=== PATIENT | male | born 1940 | race Caucasian/White ===

== ENCOUNTER 2021-01-27 10:49 | Inpatient (IN) | payer OTHER ==
--- OUTSIDE RECORDS SUMMARY | 2021-01-27 10:52 | XMS REPORT | Continuity of Care Document ---
:1940 Author Organization [facility] Address [address] [place] [address] Dr. Mose[address] [place] [address] Care Team Providers Name Role Phone JONATHAN Attending Clinician Unavailable MABEL Attending Clinician Unavailable PIERCE Attending Clinician Unavailable JONATHAN Admitting Clinician Unavailable MABEL Admitting Clinician Unavailable EDMONDS Admitting Clinician Unavailable Problems This patient has no known problems. Allergies, Adverse Reactions, Alerts This patient has no known allergies or adverse reactions. Medications This patient has no known medications. Procedures This patient has no known procedures. Encounters Start End Encounter Admission Attending Care Care Encounter Source Date/Time Date/Time Type Type Clinicians Facility Department ID 2020-07-12 2020-07-13 [facility] [id number] [place] 00:00:00 00:00:00 GAGE [address] 2020-05-06 2020-05-06 [facility] [id number] [place] 00:00:00 00:00:00 MARY [address] 2020-04-05 2020-04-09 Inpatient PIERCE [facility] [id number] [place] 00:00:00 00:00:00 BLANCA [address] 2015-11-23 2015-11-23 [facility]patient [facility] [id number] [place] 00:00:00 00:00:00 MARY [address] Results This patient has no known results.
[2021-01-27 12:53] LABS: Absolute Lymphocytes (CBC) 0.4 K/uL (0.7-4.9); Basophils % 0.1 % (0-1.3); Hematocrit 33.4 % (39.6-49.0); MPV 7.9 fL (7.6-11.3); RBC Red Blood Cell Count 4.63 M/uL (4.33-5.43)
--- NOTE | 2021-01-27 13:02 | RAD REPORT ---
EXAM DESCRIPTION: RAD - Shoulder Right 2 View - 01/27/2021 12:54 pm CLINICAL HISTORY: Right shoulder pain FINDINGS: No fracture or dislocation is seen. Bones are osteoporotic The humeral head is high riding. Screws have been placed into the right humeral head. Mild osteoarthritis glenohumeral joint. Moderate osteoarthritis AC joint
[2021-01-27] MEDS ORDERED: LEVALBUTEROL 1.25 MG/3 ML NEB ONE (13:07)
[2021-01-27 13:13] LABS: Protime INR 1.64
[2021-01-27 13:14] LABS: SARS-COV-2 RT PCR NEGATIVE (NEGATIVE)
[2021-01-27] MEDS ORDERED: NA CHLORIDE 0.9% 500 ML ONE ×2 (13:37→21:36)
[2021-01-27 13:39] LABS: Albumin 2.9 g/dL (3.4-5.0); Bilirubin Direct 0.5 mg/dL (0-0.2); Bilirubin Total 1.1 mg/dL (0.2-1.0); Magnesium 1.9 mg/dL (1.8-2.4); Potassium 3.8 mmol/L (3.5-5.1); Protein, Total 7.6 g/dL (6.4-8.2); Troponin (Emerg Dept Use Only) 0.06 ng/mL (0.0-0.045)
[2021-01-27 14:00] LABS: Blood Morphology Comment NOT SEEN (NOT SEEN); Platelet Estimate ADEQ
--- NOTE | 2021-01-27 14:05 | RAD REPORT ---
EXAM DESCRIPTION: Tato Single View01/27/2021 12:54 pm CLINICAL HISTORY: Fever COMPARISON: None FINDINGS: Upper lobe vessels are prominent. The lungs appear clear of acute infiltrate. The heart is mildly to moderately enlarged. Pacemaker le ads are in place. IMPRESSION: Prominence of the upper lobe vessels indicative of pulmonary venous hypertension
[2021-01-27] MEDS ORDERED: ACETAMINOPHEN 325 MG TABLET ONE (15:35)
--- NOTE | 2021-01-27 15:54 | RAD REPORT ---
EXAM DESCRIPTION: CT - Chest Abdomen Pelvis W Cont - 01/27/2021 3:31 pm CLINICAL HISTORY: Shortness of breath/abdominal pain/sepsis COMPARISON: None TECHNIQUE: Computed axial tomography of the chest, abdomen and pelvis was obtained. Oral contrast wa s given. IV contrast was not requested. All CT scans are performed using dose optimization technique as appropriate and may include automated exposure control or mA/KV adjustment according to patient size. FINDINGS: The evaluation of mediastinum, chilo, vessels and solid organs is limited secondary to the lack of IV contrast administration Mild chronic appearing lung interstitial opacities. No mediastinal or hilar lymphadenopathy is seen. A pleural effusion is not present. A pericardial effusion is not seen. The heart is mildly to moderately enlarged. The liver, spleen, pancreas, adrenals and kidneys appear grossly normal There is no evidence of diverticulitis. Lower abdominal aortic aneurysm AP diameter 3 centimeters. Right common iliac artery aneurysm 2.8 delia timeters. 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 Moderate left and small to moderate right inguinal hernias fat IMPRESSION: Lower abdominal aortic aneurysm AP diameter 3 centimeters. Right common iliac artery aneurysm 2.8 centimeters. 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 Moderate left and small to moderate right inguinal hernias
[2021-01-27] MEDS ORDERED: CEFTRIAXONE/SWI 1gm 1 GM/10 ML SYR ONE (16:03)
--- NOTE | 2021-01-27 16:27 | RAD REPORT ---
EXAM DESCRIPTION: US - Abdomen Exam Limited - 01/27/2021 2:59 pm CLINICAL HISTORY: Abdominal pain. COMPARISON: None. FINDINGS: The gallbladder wall is not thickened. A gallstone is not seen. The biliary tree is normal caliber. IMPRESSION: Unremarkable gallbladder ultrasound.
--- NOTE | 2021-01-27 16:48 | ER ---
Nurse's Notes [facility] Name: Danny Rouse Age: 80 yrs Sex: Male : 1940 Arrival Date: 01/27/2021 Time: 10:51 Bed 23 Private MD: Diagnosis: Sepsis of Unknown Origin;Acute on chronic combined systolic (congestive) and diastolic (congestive) heart failure Presentation: 01/27 11:07 Chief complaint: Patient states: fever, decreased appetite, slight cough, and aa5 generalized weakness that began 2 days ago. Pt's daughter also reports pt started c/o pain to right shoulder after using hammer. Coronavirus screen: Client presents with at least one sign or symptom that may indicate coronavirus-19. Standard/surgical mask placed on the client. Provider contacted for isolation considerations. Ebola Screen: No symptoms or risks identified at this time. Initial Sepsis Screen: Does the patient meet any 2 criteria? HR > 90 bpm. Does the patient have a suspected source of infection? Yes:. Risk Assessment: Do you want to hurt yourself or someone else? Patient reports no desire to harm self or others. Onset of symptoms was January 2021. 11:07 Method Of Arrival: Wheelchair aa5 11:07 Acuity: AUBREY 2 aa5 Historical: - Allergies: 11:10 No Known Allergies; aa5 - PMHx: 11:10 Hypertension; cardiomyopathy; Thyroid problem; aa5 - PSHx: 11:10 Logan shoulders; Pacemaker/defibrillator; aa5 - Immunization history:: Immunization history: Flu vaccine is up to date. - Social history:: Smoking status: Patient denies any tobacco usage or history of. Screenin:14 Abuse screen: Denies threats or abuse. Nutritional screening: No deficits noted. vg1 Tuberculosis screening: No symptoms or risk factors identified. Fall Risk No fall in past 12 months (0 pts). No secondary diagnosis (0 pts). No IV (0 pts). Ambulatory Aid- None/Bed Rest/Nurse Assist (0 pts). Gait- Weak (10 pts.). Mental Status- Oriented to own ability (0 pts). Total Urbina Fall Scale indicates No Risk (0-24 pts). Assessment: 12:12 General: Appears in no apparent distress. comfortable, Behavior is calm, cooperative. vg1 Pain: Complains of pain in right shoulder Pain currently is 10 out of 10 on a pain scale. Pain began 2-3 days ago. Neuro: Level of Consciousness is awake, alert, obeys commands, Oriented to person, place, time, situation. Cardiovascular: Patient's skin is warm and dry. Defibrillator on left side of chest. Respiratory: Reports shortness of breath on exertion cough that is Airway is patent Respiratory effort is even, labored, Respiratory pattern is regular, symmetrical, Breath sounds with wheezes in right posterior middle lobe. GI: Abdomen is flat, Reports nausea, Patient currently denies diarrhea, vomiting, Parent/caregiver reports the patient having Last BM was about 4 days ago. : No signs and/or symptoms were reported regarding the genitourinary system. EENT: No signs and/or symptoms were reported regarding the EENT system. Derm: Skin is pink, warm \T\ dry. Musculoskeletal: Circulation, motion, and sensation intact. 14:18 Reassessment: Patient appears in no apparent distress at this time. No changes from vg1 previously documented assessment. Patient and/or family updated on plan of care and expected duration. Pain level reassessed. Patient is alert, oriented x 3, equal unlabored respirations, skin warm/dry/pink. 15:22 Reassessment: Patient appears in no apparent distress at this time. No changes from vg1 previously documented assessment. Patient and/or family updated on plan of care and expected duration. Pain level reassessed. Patient is alert, oriented x 3, equal unlabored respirations, skin warm/dry/pink. 18:37 Reassessment: Patient appears in no apparent distress at this time. Patient and/or vg1 family updated on plan of care and expected duration. Pain level reassessed. Patient is alert, oriented x 3, equal unlabored respirations, skin warm/dry/pink. 18:46 Reassessment: attempted to call report. vg1 Vital Signs: 11:07 BP 96 / 59; Pulse 97; Resp 20 S; Temp 99.0(O); Pulse Ox 96% on R/A; Weight 107.95 kg aa5 (R); Height 6 ft. 0 in. (182.88 cm) (R); 12:14 BP 126 / 62; Pulse 96; Resp 22; Temp 99.0; Pulse Ox 96% on 2 lpm NC; vg1 12:30 BP 122 / 54; Pulse 99; Resp 28; Pulse Ox 96% on 2 lpm NC; vg1 13:00 BP 123 / 49; Pulse 101; Resp 28; Pulse Ox 99% on 2 lpm NC; vg1 13:30 BP 110 / 58; Pulse 100; Resp 28; Pulse Ox 100% on 2 lpm NC; vg1 13:30 BP 102 / 61; Pulse 102; Resp 28; Temp 100.4; Pulse Ox 96% on 2 lpm NC; vg1 14:00 BP 102 / 61; Pulse 102; Resp 28; Pulse Ox 96% on 2 lpm NC; vg1 14:42 BP 92 / 56; Pulse 100; Resp 26; Pulse Ox 95% on 2 lpm NC; vg1 15:00 BP 101 / 49; Pulse 95; Resp 26; Pulse Ox 95% on 2 lpm NC; vg1 17:12 BP 93 / 51; Pulse 90; Resp 24; Temp 98.7(O); Pulse Ox 95% on 2 lpm NC; vg1 18:04 BP 112 / 54; Pulse 86; Resp 20; Pulse Ox 96% on 2 lpm NC; vg1 18:37 Temp 98.4(O); vg1 11:07 Body Mass Index 32.28 (107.95 kg, 182.88 cm) aa5 ED Course: 10:51 Patient arrived in ED. mr 11:07 Arm band placed on. aa5 11:08 Triage completed. aa5 12:08 Anjel Cowart PA is PHCP. [facility] 12:08 Chemo Fonseca MD is Attending Physician. [facility] 12:12 Maria De Jesus Hobbs, DONNIE is Primary Nurse. vg1 12:14 Patient has correct armband on for positive identification. Bed in low position. Call 1 light in reach. Side rails up X2. 12:30 Oxygen administration via nasal cannula \T\ 2L/min. jp3 12:34 COVID swab sent to lab. Flu and/or RSV swab sent to lab. jp3 12:47 Initial lab(s) drawn, by ks, sent to lab. Inserted saline lock: 20 gauge in right vg1 antecubital area, using aseptic technique. Blood collected. 12:54 XRAY Chest (1 view) In Process Unspecified. EDMS 12:54 Shoulder Right (2 View) XRAY In Process Unspecified. EDMS 14:23 First set of blood cultures drawn by me, COVID swab sent to lab. jp3 14:30 Second set of blood cultures drawn by me. jp3 14:32 Lactate Sent. jp3 14:32 Blood Culture Adult (2) Sent. jp3 14:58 US at bedside. vg1 14:59 US Abdomen Limited In Process Unspecified. EDMS 15:[address] via stretcher. vg1 15:31 CT Chest, Abdomen, Pelvis - W/Contrast In Process Unspecified. EDMS 16:09 Urine collected: straight cath specimen, clear, tyrone colored, Amount Returned: 400mL. jp3 Straight cath inserted, using sterile technique, 16 Fr. Specimen obtained. Returned clear yellow urine. Patient tolerated well. 16:47 Nolberto Chaidez is Hospitalizing Provider. m 18:16 Repeat lab(s) drawn. by ks, sent to lab. jp3 19:14 Primary Nurse role handed off by Maria De Jesus Hobbs, RN mw2 19:34 Maria De Jesus Hobbs, RN is Primary Nurse. vg1 19:39 No provider procedures requiring assistance completed. Patient admitted, IV remains in vg1 place. Administered Medications: 12:53 Drug: Xopenex (3) 1.25 mg Route: Inhalation; vg1 14:15 Follow up: Response: No adverse reaction vg1 13:24 Drug: NS 0.9% 500 ml Route: IV; Rate: bolus; Site: right antecubital; vg1 14:14 Follow up: IV Status: Completed infusion vg1 15:19 Drug: Tylenol 650 mg Route: PO; vg1 16:30 Follow up: Response: No adverse reaction; Temperature is decreased vg1 16:16 Drug: Rocephin (cefTRIAXone) 1 grams Route: IV; Rate: calculated rate; Site: right vg1 antecubital; 16:45 Follow up: Response: No adverse reaction; IV Status: Completed infusion vg1 17:11 Drug: Cefepime 1 grams Route: IVPB; Rate: 200 ml/hr; Infused Over: 30 mins; Site: right vg1 antecubital; 17:12 Follow up: IV Status: Completed infusion vg1 17:12 Drug: vancoMYCIN 1 grams Route: IVPB; Infused Over: 2 hrs; Site: right antecubital; vg1 18:59 Follow up: Response: No adverse reaction; IV Status: Completed infusion vg1 Outcome: 16:48 Decision to Hospitalize by Provider. fracisco 19:39 Admitted to Tele accompanied by tech, via stretcher, room 222, with oxygen, with chart, vg1 Report called to DONNIE Quan 19:39 Condition: stable 19:39 Instructed on the need for admit. 20:05 Patient left the ED. vg1 Signatures: Dispatcher [employer] EDMS Anjel Cowart PA PA fracisco Geo, Alexus Wang, Kia, RN RN aa5 Didi Copeland mw2 Joe Trejo jp3 Maria De Jesus Hobbs, RN RN vg1 Corrections: (The following items were deleted from the chart) 11:11 11:07 Acuity: AUBREY 3 aa5 aa5 12:31 12:12 Cardiovascular: Patient's skin is warm and dry. vg1 vg1 12:31 12:12 Respiratory: Airway is patent Respiratory effort is even, labored, Respiratory vg1 pattern is regular, symmetrical, vg1 12:48 12:12 Respiratory: Reports shortness of breath on exertion cough that is Airway is vg1 patent Respiratory effort is even, labored, Respiratory pattern is regular, symmetrical, vg1 18:37 17:12 BP 93 / 51; Pulse 90bpm; Resp 24bpm; Pulse Ox 95% 2 lpm Nasal Cannula; Temp vg1 98.7F; vg1
--- NOTE | 2021-01-27 16:48 | EDPHYS ---
Physician Documentation [facility] Name: Danny Rouse Age: 80 yrs Sex: Male : 1940 Arrival Date: 01/27/2021 Time: 10:51 Bed 23 Private MD: ED Physician Chemo Fonseca HPI: 01/27 12:19 This 80 yrs old Male presents to ER via Wheelchair with complaints of Fever, jmm Decreased Appetite, Shoulder Pain, Nausea, Weakness. 12:19 Onset: The symptoms/episode began/occurred 2 day(s) ago. jmm 12:31 Modifying factors: there are no obvious modifying factors. Associated signs and jmm symptoms: Pertinent positives: shortness of breath, Pertinent negatives: abdominal pain, chest pain, sore throat, vomiting. The patient has not experienced similar symptoms in the past. 12:37 Patient also complains of ongoing right shoulder pain after using a jackhammer. jmm Historical: - Allergies: 11:10 No Known Allergies; aa5 - PMHx: 11:10 Hypertension; cardiomyopathy; Thyroid problem; aa5 - PSHx: 11:10 Logan shoulders; Pacemaker/defibrillator; aa5 - Immunization history:: Immunization history: Flu vaccine is up to date. - Social history:: Smoking status: Patient denies any tobacco usage or history of. ROS: 12:31 Cardiovascular: Negative for chest pain, palpitations, and edema. jmm 12:31 Constitutional: Positive for fatigue, fever. 12:31 Respiratory: Positive for shortness of breath. 12:31 MS/extremity: Positive for pain. 12:31 Neuro: Positive for weakness. 12:31 All other systems are negative. Exam: 12:31 Constitutional: This is a well developed, well nourished patient who is awake, alert, jmm and in no acute distress. Head/Face: atraumatic. Eyes: EOMI, no conjunctival erythema appreciated ENT: Moist Mucus Membranes Neck: Trachea midline, Supple Chest/axilla: Normal chest wall appearance and motion. Cardiovascular: Regular rate and rhythm. No edema appreciated Respiratory: Normal respirations, no respiratory distress appreciated Abdomen/GI: Non distended, soft Back: Normal ROM Skin: General appearance color normal MS/ Extremity: Moves all extremities, no obvious deformities appreciated, no edema noted to the lower extremities Neuro: Awake and alert, normal gait Psych: Behavior is normal, Mood is normal, Patient is cooperative and pleasant Vital Signs: 11:07 BP 96 / 59; Pulse 97; Resp 20 S; Temp 99.0(O); Pulse Ox 96% on R/A; Weight 107.95 kg aa5 (R); Height 6 ft. 0 in. (182.88 cm) (R); 12:14 BP 126 / 62; Pulse 96; Resp 22; Temp 99.0; Pulse Ox 96% on 2 lpm NC; vg1 12:30 BP 122 / 54; Pulse 99; Resp 28; Pulse Ox 96% on 2 lpm NC; vg1 13:00 BP 123 / 49; Pulse 101; Resp 28; Pulse Ox 99% on 2 lpm NC; vg1 13:30 BP 110 / 58; Pulse 100; Resp 28; Pulse Ox 100% on 2 lpm NC; vg1 13:30 BP 102 / 61; Pulse 102; Resp 28; Temp 100.4; Pulse Ox 96% on 2 lpm NC; vg1 14:00 BP 102 / 61; Pulse 102; Resp 28; Pulse Ox 96% on 2 lpm NC; vg1 14:42 BP 92 / 56; Pulse 100; Resp 26; Pulse Ox 95% on 2 lpm NC; vg1 15:00 BP 101 / 49; Pulse 95; Resp 26; Pulse Ox 95% on 2 lpm NC; vg1 17:12 BP 93 / 51; Pulse 90; Resp 24; Temp 98.7(O); Pulse Ox 95% on 2 lpm NC; vg1 18:04 BP 112 / 54; Pulse 86; Resp 20; Pulse Ox 96% on 2 lpm NC; vg1 18:37 Temp 98.4(O); vg1 11:07 Body Mass Index 32.28 (107.95 kg, 182.88 cm) aa5 MDM: 12:18 Patient medically screened. pedro 16:45 Data reviewed: vital signs, nurses notes. Counseling: I had a detailed discussion with pedro the patient and/or guardian regarding: the historical points, exam findings, and any diagnostic results supporting the discharge/admit diagnosis, lab results, radiology results, the need for further work-up and treatment in the hospital. ED course: I discussed the patient with Dr. Chaidez whom accepted the patient for admission. Currently no source known to explain leukocytosis. Neck is supple. No headache. No AMS. I do not suspect meningitis/encephalitis. . 01/27 11:13 Order name: Basic Metabolic Panel [facility] 01/27 11:13 Order name: CBC with Diff [facility] 01/27 11:13 Order name: LFT's; Complete Time: 13:41 [facility] 01/27 11:13 Order name: Magnesium; Complete Time: 13:41 [facility] 01/27 11:13 Order name: NT PRO-BNP; Complete Time: 13:41 [facility] 01/27 11:13 Order name: PT-INR; Complete Time: 13:21 [facility] 01/27 11:13 Order name: Troponin (emerg Dept Use Only); Complete Time: 13:41 [facility] 01/27 11:13 Order name: Basic Metabolic Panel; Complete Time: 13:41 [facility] 01/27 11:13 Order name: CBC with Automated Diff; Complete Time: 14:05 [facility] 01/27 12:09 Order name: COVID-19 : Document "Date of Symptom Onset" if Symptomatic. [facility] 01/27 12:09 Order name: Flu [facility] 01/27 13:10 Order name: Manual Differential; Complete Time: 14:05 [facility] 01/27 11:13 Order name: XRAY Chest (1 view); Complete Time: 14:07 [facility] 01/27 12:18 Order name: Shoulder Right (2 View) XRAY; Complete Time: 13:03 [facility] 01/27 13:14 Order name: COVID-19/FLU A+B; Complete Time: 13:21 [facility] 01/27 13:56 Order name: US Abdomen Limited; Complete Time: 16:27 [facility] 01/27 14:17 Order name: Procalcitonin; Complete Time: 16:17 [facility] 01/27 14:17 Order name: Lactate; Complete Time: 15:11 [facility] 01/27 14:17 Order name: Blood Culture Adult (2) [facility] 01/27 15:10 Order name: CT Chest, Abdomen, Pelvis - W/Contrast; Complete Time: 15:57 [facility] 01/27 16:12 Order name: Urine Dipstick--Ancillary (enter results); Complete Time: 19:44 01/27 18:43 Order name: Lactate Sepsis 2 HR Follow-up; Complete Time: 18:45 [facility] 01/27 11:13 Order name: EKG; Complete Time: 11:14 4 01/27 11:13 Order name: Cardiac monitoring; Complete Time: 12:25 [facility] 01/27 11:13 Order name: EKG - Nurse/Tech; Complete Time: 12:25 4 01/27 11:13 Order name: IV Saline Lock; Complete Time: 12:47 [facility] 01/27 11:13 Order name: Labs collected and sent; Complete Time: 12:46 [facility] 01/27 11:13 Order name: O2 Per Protocol; Complete Time: 12:15 [facility] 01/27 11:13 Order name: O2 Sat Monitoring; Complete Time: 12:15 [facility] 01/27 12:08 Order name: Urine Dipstick-Ancillary (obtain specimen); Complete Time: 16:11 [facility] 01/27 16:09 Order name: Diet Regular; Complete Time: 16:09 vg1 Administered Medications: 12:53 Drug: Xopenex (3) 1.25 mg Route: Inhalation; vg1 14:15 Follow up: Response: No adverse reaction vg1 13:24 Drug: NS 0.9% 500 ml Route: IV; Rate: bolus; Site: right antecubital; vg1 14:14 Follow up: IV Status: Completed infusion vg1 15:19 Drug: Tylenol 650 mg Route: PO; vg1 16:30 Follow up: Response: No adverse reaction; Temperature is decreased vg1 16:16 Drug: Rocephin (cefTRIAXone) 1 grams Route: IV; Rate: calculated rate; Site: right vg1 antecubital; 16:45 Follow up: Response: No adverse reaction; IV Status: Completed infusion vg1 17:11 Drug: Cefepime 1 grams Route: IVPB; Rate: 200 ml/hr; Infused Over: 30 mins; Site: right vg1 antecubital; 17:12 Follow up: IV Status: Completed infusion vg1 17:12 Drug: vancoMYCIN 1 grams Route: IVPB; Infused Over: 2 hrs; Site: right antecubital; vg1 18:59 Follow up: Response: No adverse reaction; IV Status: Completed infusion vg1 Disposition: 01/28 18:28 Co-signature as Attending Physician, Chemo Fonseca MD I agree with the assessment and [facility] plan of care. Disposition: 01/27/21 16:48 Hospitalization ordered by Nolberto Chaidez for Observation. Preliminary diagnosis are Sepsis of Unknown Origin, Acute on chronic combined systolic (congestive) and diastolic (congestive) heart failure. - Bed requested for Telemetry/MedSurg (Inpatient). - Status is Observation. vg1 - Condition is Stable. - Problem is new. - Symptoms are unchanged. Signatures: Dispatcher [employer] EDIN Anjel Cowart PA PA jmm Calderon, Audri, RN RN aa5 Chemo Fonseca MD MD tw4 Tiara Maria Victoria, DONNIE RN vg1 Corrections: (The following items were deleted from the chart) 01/27 12:33 12:10 CORONAVIRUS ordered. EDIN EDIN 12:34 12:10 Influenza Screen (A ordered. [facility] EDIN 18:39 16:48 Hospitalization Ordered by Nolberto Chaidez for Observation. Preliminary diagnosis eb is Sepsis of Unknown Origin; Acute on chronic combined systolic (congestive) and diastolic (congestive) heart failure. Bed requested for Telemetry/MedSurg (Inpatient). Status is Observation. Condition is Stable. Problem is new. Symptoms are unchanged. [facility] 20:05 18:39 01/27/2021 16:48 Hospitalization Ordered by Nolberto Chaidez for Observation. vg1 Preliminary diagnosis is Sepsis of Unknown Origin; Acute on chronic combined systolic (congestive) and diastolic (congestive) heart failure. Bed requested for Telemetry/MedSurg (Inpatient). Status is Observation. Condition is Stable. Problem is new. Symptoms are unchanged. eb
[2021-01-27] MEDS ORDERED: VANCOMYCIN/NS 1 gm 1 GM/250 ML BAG IVPB ONE (17:00)
[2021-01-27] MEDS ORDERED: CEFEPIME/SWI 1gm 10 ML ONE (17:06)
--- NOTE | 2021-01-27 18:51 | P.HP ---
Certification for Inpatient Patient admitted to: Inpatient With expected LOS: >2 Midnights Practitioner: I am a practitioner with admitting privileges, knowledge of patient current condition, hospital course, and medical plan of care. Services: Services provided to patient in accordance with Admission requirements found in Title 42 Section 412.3 of the Code of Federal Regulations Patient History Date of Service: 01/27/21 Reason for admission: Fatigue, right shoulder pain History of Present Illness: 80-year-old gentleman with a history of heart failure, status post AICD, history of atrial fibrillation presented emergency department with a complaint of generalized weakness, fatigue, and right shoulder pain of 2 days duration. Patient report his shoulder pain or head after he used a sledgehammer a couple of days ago. Patient reports intermittent fever. He denied shortness of breath or cough. He denied any upper respiratory symptoms. He denies any dysuria or urinary frequency or diarrhea. Workup in the emergency department revealed severe leukocytosis, elevated lactic acid, and elevated creatinine and indicating acute renal failure. Chest x-ray shows no acute infiltrate. CT abdomen and pelvis unremarkable except abdominal aortic aneurysm. UA shows no UT Patient diagnosed with severe sepsis. Source of sepsis unknown. Sepsis protocol initiated in the ED and patient given IV fluid, IV vancomycin and cefepime. Patient is hospitalized for further management. - Past Medical/Surgical History -: CHF -: Hypertension -: Cardiomyopathy -: Thyroid problem -: Throat cancer -: Pacemaker/AICD insertion - Family History Brother -: Cancer (Lung) - Social History Smoking Status: Never smoker Alcohol use: No CD- Drugs: No Place of Residence: Home Review of Systems Other: Except as documented, all other systems reviewed and negative. Physical Examination - Physical Exam General: Alert, In no apparent distress, Oriented x3 HEENT: Atraumatic, Normocephalic, Mucous membr. moist/pink, EOMI, Sclerae nonicteric Neck: Supple, JVD not distended Respiratory: Clear to auscultation bilaterally, Normal air movement Cardiovascular: No edema, Regular rate/rhythm, Normal S1 S2 Gastrointestinal: Normal bowel sounds, Soft and benign, Non-distended, No tenderness Musculoskeletal: No clubbing, No swelling, No tenderness Integumentary: No rashes, No erythema Neurological: Normal speech, Normal strength at 5/5 x4 extr, Cranial nerves 3-12 intact Lymphatics: No axilla or inguinal lymphadenopathy - Studies Laboratory Data (last 24 hrs) 01/27/21 12:44: PT 19.0 H, INR 1.64 01/27/21 12:44: WBC 34.50 H*, Hgb 10.3 L, Hct 33.4 L, Plt Count 222 01/27/21 12:44: Sodium 133 L, Potassium 3.8, BUN 30 H, Creatinine 1.48 H, Glucose 125 H, Magnesium 1.9, Total Bilirubin 1.1 H, AST 50 H, ALT 36, Alkaline Phosphatase 128 H Assessment and Plan - Problems (Diagnosis) (1) Sepsis Current Visit: Yes Status: Acute (2) Acute renal failure Current Visit: Yes Status: Acute (3) Cardiomyopathy Current Visit: Yes Status: Acute (4) Elevated troponin Current Visit: Yes Status: Acute (5) Elevated liver enzymes Current Visit: Yes Status: Acute - Plan Source of sepsis is unknown. Admit to the medical floor. Continue sepsis protocol initiated in the ED. Will treat with IV vancomycin and Cefepime. Follow blood cultures obtained in the ED. Monitor CBC. Hydrate with IV normal saline. Watch for fluid overload given history of cardiomyopathy and possibly systolic heart failure. Serial lactate. Elevated troponin likely secondary to sepsis in the contest of CHF. Trend troponin. Elevated liver enzymes likely secondary to sepsis. - Advance Directives Does patient have a Living Will: No Does patient have a Durable POA for Healthcare: No
[2021-01-27 19:44] LABS: Urine Blood 2+ (NEG); Urine Glucose NEGATIVE (NEG); Urine Protein 2+ (NEG); Urine pH 5.5 (5.0-7.0)
[2021-01-27] MEDS ORDERED: NA CHLORIDE 0.9% 500 ML IV ONE (20:29)
[2021-01-27] MEDS ORDERED: CEFEPIME 2 GM VIAL IV SCH (20:29)
[2021-01-27] MEDS ORDERED: VANCOMYCIN 1.75 GM in NA CHLORIDE 0.9% 500 ML IVPB ONE (21:00)
[2021-01-27] MEDS ORDERED: VANCOMYCIN 1 GM/VIAL ONE (21:36)
[2021-01-27] MEDS: NA CHLORIDE 0.9% 1,000 ML IV SCH (21:38)
[2021-01-27 22:45] VITALS: BMI 31.2
[2021-01-28] MEDS: AMIODARONE HCL 200 MG TAB PO SCH ×2 (00:36→10:16)
[2021-01-28] MEDS: HEPARIN 5000 UNIT/ML 1 ML VIAL SQ SCH ×2 (00:38→10:15)
[2021-01-28] MEDS: NA CHLORIDE 0.9% 1,000 ML IV SCH ×2 (05:20→16:29)
[2021-01-28 05:46] LABS: Urine Appearance CLEAR; Urine Bilirubin NEGATIVE (NEG); Urine Blood 3+ (NEG); Urine Color DK YELLOW; Urine Glucose NEGATIVE (NEG); Urine Protein 1+ (NEG); Urine Specific Gravity >=1.030 (1.005-1.030)
[2021-01-28 05:56] LABS: Urine Microscopic Reflex ORDER UMIC
[2021-01-28] MEDS ORDERED: VANCOMYCIN/NS 1 gm 1 GM/250 ML BAG IVPB SCH (06:00)
[2021-01-28 06:12] LABS: Urine Bacteria >50 /HPF (NONE SEEN)
[2021-01-28 06:13] LABS: Urine Amorphous Sediment 2+ /HPF (NONE SEEN); Urine Coarse Granular Casts FEW /LPF (NONE SEEN); Urine Mucus 2+ /HPF (NONE SEEN); Urine Yeast FEW (NONE SEEN)
[2021-01-28 06:18] LABS: Absolute Lymphocytes (CBC) 0.4 K/uL (0.7-4.9); Basophils % 0.3 % (0-1.3); Hematocrit 29.2 % (39.6-49.0); Lymphocytes % 1.5 % (15.3-44.8); MPV 8.6 fL (7.6-11.3)
[2021-01-28 06:35] LABS: Magnesium 2.1 mg/dL (1.8-2.4); Phosphorus 2.4 mg/dL (2.5-4.9); Potassium 3.4 mmol/L (3.5-5.1)
--- NOTE | 2021-01-28 08:31 | EKG ---
Test Date: 2021-01-27 Test Time: 12:19:50 Family Preservation Worker: COLLETTE MEASUREMENT RESULTS: Intervals: Rate: 96 MN: 242 QRSD: 94 QT: 368 QTc: 464 [place]: P: 86 MN: 242 QRS: 2 T: 65 INTERPRETIVE STATEMENTS: Sinus rhythm with 1st degree AV block Nonspecific ST and T wave abnormality Abnormal ECG Compared to ECG 09/08/1996 13:54:00 First degree AV block now present ST (T wave) deviation now present Sinus bradycardia no longer present Electronically Signed On 01-28-21 08:29:06 [employer] by Carmelo Arvizu
[2021-01-28] MEDS ORDERED: POTASSIUM 25 MEQ EFFERV TAB PO ONE (09:00)
--- NOTE | 2021-01-28 09:01 | P.INFCA ---
Sepsis Focused Assessment - Focused Assessment Complete? Sepsis Focused Assessment Completed?: Yes - Sepsis Screen Result Severe Sepsis: Positive Septic Shock: Negative - Evaluation Current stage of sepsis: Severe sepsis - Vital Signs Reviewed: Yes Temperature: 97.7 F Heart rate: 95 Blood Pressure: 104/63 Respiratory Rate: 19 O2 Sat by Pulse Oximetry: 97 - Examination Date exam was performed: 01/27/21 Time exam was performed: 19:05 Heart: Regular rate/rhythm, S1, S2 Lungs: Clear bilaterally Peripheral pulses: 3+ Normal Peripheral pulse location: Radial Capillary refill: <2 Seconds Skin examination: Normal turgor
[2021-01-28 09:14] LABS: Toxic Granulation PRESENT
[2021-01-28 09:15] LABS: Blood Morphology Comment NOT SEEN (NOT SEEN); Platelet Estimate ADEQ
[2021-01-28] MEDS: POTASS/SODIUM PHOSPHATE 1 PKT POWD.PACK PO SCH ×3 (10:15→11:35)
[2021-01-28] MEDS: CEFEPIME/SWI 2gm 2 GM/20 ML SYR IV SCH (10:23)
--- NOTE | 2021-01-28 12:07 | P.PN ---
Subjective Date of Service: 01/28/21 Chief Complaint: Fatigue, right shoulder pain Patient reports still feeling sick and fatigue. He had a low-grade fever yesterday in the afternoon. No fever since admission. No nausea or vomiting. Multiple blood cultures growing Gram positive Cocci. Patient is coughing occasionally. Physical Examination - Vital Signs Temperature: 97.7 F Blood Pressure: 104/63 Pulse: 95 Respirations: 19 Pulse Ox (%): 97 - Physical Exam General: Alert, In no apparent distress, Oriented x3 HEENT: Mucous membr. moist/pink Neck: Supple, JVD not distended Respiratory: Clear to auscultation bilaterally, Normal air movement Cardiovascular: No edema, Regular rate/rhythm, Normal S1 S2 Gastrointestinal: Normal bowel sounds, Soft and benign, Non-distended, No tenderness Musculoskeletal: No swelling, No tenderness Integumentary: No rashes, No erythema Neurological: Normal speech, Normal strength at 5/5 x4 extr, Cranial nerves 3-12 intact - Studies Laboratory Data (last 24 hrs) 01/27/21 12:44: PT 19.0 H, INR 1.64 01/27/21 12:44: WBC 34.50 H*, Hgb 10.3 L, Hct 33.4 L, Plt Count 222 01/27/21 12:44: Sodium 133 L, Potassium 3.8, BUN 30 H, Creatinine 1.48 H, Glucose 125 H, Magnesium 1.9, Total Bilirubin 1.1 H, AST 50 H, ALT 36, Alkaline Phosphatase 128 H Assessment And Plan - Current Problems (Diagnosis) (1) Sepsis Current Visit: Yes Status: Acute (2) Acute renal failure Current Visit: Yes Status: Acute (3) Cardiomyopathy Current Visit: Yes Status: Acute (4) Elevated troponin Current Visit: Yes Status: Acute (5) Elevated liver enzymes Current Visit: Yes Status: Acute - Plan Source of sepsis is unknown. Blood culture growing Gram positive cocci. Continue IV vancomycin and Cefepime. Follow blood cultures. Repeat blood cultures. Obtain chest x-ray to evaluate for pneumonia versus fluid overload given history of cardiomyopathy and possibly systolic heart failure. Repeat lactate level. Elevated troponin likely secondary to sepsis in the contest of CHF. Troponin trended flat. Elevated liver enzymes likely secondary to sepsis.
--- NOTE | 2021-01-28 14:02 | RAD REPORT ---
EXAM DESCRIPTION: RAD - Chest Single View - 01/28/2021 1:43 pm CLINICAL HISTORY: Cough and shortness of breath. Chest pain. COMPARISON: Chest Single View dated 01/27/2021 FINDINGS: Portable technique limits examination quality. Mild interstitial pulmonary edema. The heart is moderately enlarged in size with a multilead pacer/de fibrillator device. Findings are stable since yesterday's examination. IMPRESSION: Stable findings of mild CHF since yesterday's study.
[2021-01-28] MEDS: MORPHINE 2 MG/ML SYR IV PRN (18:08)
[2021-01-28] MEDS: DABIGATRAN 150 MG CAP PO SCH (22:03)
[2021-01-28] MEDS: VANCOMYCIN 2 GM in NA CHLORIDE 0.9% 500 ML IVPB SCH (22:03)
[2021-01-29] MEDS: MORPHINE 2 MG/ML SYR IV PRN (04:23)
[2021-01-29 05:54] LABS: Absolute Lymphocytes (CBC) 0.7 K/uL (0.7-4.9); Basophils % 0.3 % (0-1.3); Hematocrit 30.3 % (39.6-49.0); Lymphocytes % 2.4 % (15.3-44.8); MPV 9.1 fL (7.6-11.3)
[2021-01-29 06:19] LABS: BUN Blood Urea Nitrogen 28 mg/dL (7-18); Bicarbonate 25 mmol/L (21-32); Glucose Level 112 mg/dL (74-106); Phosphorus 1.9 mg/dL (2.5-4.9); Sodium Level 137 mmol/L (136-145)
[2021-01-29] MEDS: POTASS/SODIUM PHOSPHATE 1 PKT POWD.PACK PO SCH ×3 (06:43→14:50)
[2021-01-29] MEDS: LEVOTHYROXINE SOD 0.05 MG TABLET PO SCH (09:00)
[2021-01-29] MEDS: AMIODARONE HCL 200 MG TAB PO SCH (09:28)
[2021-01-29] MEDS: DABIGATRAN 150 MG CAP PO SCH ×2 (09:28→21:08)
[2021-01-29] MEDS: ATORVASTATIN 20 MG TAB PO SCH (09:28)
[2021-01-29] MEDS: CEFEPIME/SWI 2gm 2 GM/20 ML SYR IV SCH (09:29)
[2021-01-29] MEDS: MONTELUKAST 10 MG TAB PO SCH (09:29)
--- NOTE | 2021-01-29 10:24 | EKG ---
Test Date: 2021-01-27 Test Time: 23:00:07 Roller Machine Operator: RT-O MEASUREMENT RESULTS: Intervals: Rate: 93 [place]: QRSD: 102 QT: 320 QTc: 397 [place]: P: NC: QRS: -8 T: 179 INTERPRETIVE STATEMENTS: Atrial fibrillation Minimal voltage criteria for LVH, may be normal variant ST & T wave abnormality, consider inferior ischemia or digitalis effect Abnormal ECG Compared to ECG 01/27/2021 12:19:50 Left ventricular hypertrophy now present Possible ischemia now present Sinus rhythm no longer present First degree AV block no longer present ST (T wave) deviation still present Electronically Signed On 01-29-21 10:22:13 CDT by Carmelo Arvizu
--- NOTE | 2021-01-29 11:43 | P.PN ---
Subjective Date of Service: 01/29/21 Chief Complaint: Fatigue, right shoulder pain Patient complaining of low back pain. Repeat blood cultures still positive for gram positive cocci. No fever since yesterday. Physical Examination - Vital Signs Temperature: 97.1 F Blood Pressure: 112/64 Pulse: 97 Respirations: 19 Pulse Ox (%): 94 - Physical Exam General: Alert, In no apparent distress, Oriented x3 HEENT: Mucous membr. moist/pink Neck: Supple, JVD not distended Respiratory: Clear to auscultation bilaterally, Normal air movement Cardiovascular: No edema, Normal S1 S2, Other (Tachycardia) Gastrointestinal: Soft and benign, Non-distended, No tenderness Musculoskeletal: No swelling, Tenderness (Diffuse tenderness at lower back) Integumentary: No rashes, No erythema Neurological: Normal strength at 5/5 x4 extr, Cranial nerves 3-12 intact Assessment And Plan - Current Problems (Diagnosis) (1) Sepsis Current Visit: Yes Status: Acute (2) Acute renal failure Current Visit: Yes Status: Acute (3) Cardiomyopathy Current Visit: Yes Status: Acute (4) Elevated troponin Current Visit: Yes Status: Acute (5) Elevated liver enzymes Current Visit: Yes Status: Acute - Plan Gram positive oxide bacteremia of unknown source. Leukocytosis has improved but still significantly elevated. Chest x-ray: No acute infiltrate. Continue IV vancomycin and Cefepime. Follow blood cultures. Infectious disease consult. Obtain echocardiogram given patient has AICD in place. Obtain CT lumbar and thoracic spine rule out abscess. Elevated troponin likely secondary to sepsis in the contest of CHF. Elevated liver enzymes likely secondary to sepsis. PT evaluation.
--- NOTE | 2021-01-29 13:06 | RAD REPORT ---
EXAM DESCRIPTION: CT - Spine Lumbar W/Cont - 01/29/2021 12:55 pm CLINICAL HISTORY: Bacteremia with back pain COMPARISON: Thoracic Spine W/Cont dated 01/29/2021 TECHNIQUE: Axial 2 millimeter thick images of the lumbar spine were obtained following nonionic IV c ontrast administration. Sagittal and coronal reformatted images were generated and reviewed. The CT scan was performed using dose optimization techniques as appropriate to a performed exam incl uding one or more of the following: Automated exposure control, adjustment of the mA and/or kV accord ing to patient size (this includes techniques or standardized protocols for targeted exams where dose is matched to indication/reason for exam) and use of iterative reconstruction technique. FINDINGS: Lumbar bodies are normal in height. There are no destructive bone changes that would sugge st osteomyelitis. AP alignment is normal. Degenerative left convex scoliosis is present. No paraspina l soft tissue mass. All disc levels show loss in height most pronounced L2-S1. Degenerative gas is present in the disc sp aces L2-S1. Facet hypertrophy and uncovertebral joint hypertrophy changes are present throughout the lumbar spine. L1-2 left foraminal disc bulge without significant foraminal stenosis. Circumferential bulging of disc material L2-3. No central spinal stenosis. Bilateral foraminal encroa chment is present without encroachment on the exiting nerve roots. L3-4 circumferential bulging disc material. Uncovertebral joint hypertrophy is present. There is sign ificant right foraminal stenosis from disc and bone degenerative change. No significant left stenosis or canal stenosis. Circumferential bulging of disc material L4-5. No central spinal stenosis. Bilateral foraminal encroa chment is present with some perineural fat still present. L5-S1 disc bulge is mild. No canal or foramen stenosis. IMPRESSION: Patient has advanced lumbar degenerative change with prominent foraminal stenosis on the right at L3-4. No acute or destructive bone finding. The CT findings are not regarded as suspicious for discitis or osteomyelitis.
--- NOTE | 2021-01-29 13:11 | RAD REPORT ---
EXAM DESCRIPTION: CT - Thoracic Spine W/Cont - 01/29/2021 12:55 pm CLINICAL HISTORY: Pain, bacteremia, sepsis of unknown origin COMPARISON: None. TECHNIQUE: Axial 3 mm thick images of the thoracic spine were obtained with sagittal and coronal rec onstruction images generated and reviewed. All CT scans are performed using dose optimization technique as appropriate and may include automated exposure control or mA/KV adjustment according to patient size. FINDINGS: Thoracic body height and alignment are normal. No significant disc space narrowing. Endpla te spurring changes are present in the thoracic spine. No paraspinal soft tissue mass is evident. Maria Luz tral canal detail is inherently limited. No suspicion for an epidural mass or large disc herniation. No erosive or destructive changes to the endplates. Interstitial opacification is present. Focal lung parenchymal opacification seen in the anteromedial portion of the right upper lobe at the aortic arch level. This measures 2.8 cm in size. Patchy airspa ce opacities are present in the lung bases, right greater than left. Most of this is atelectasis. IMPRESSION: CT thoracic spine imaging is not suspicious for discitis or osteomyelitis. No significan t bone or disc finding seen. Focal 2.8 centimeter rounded mass density in the anteromedial right upper lobe could be a focal pneum onia. No cavitation or abscess component at this time. Lung mass is possible. This finding needs chas toring on follow-up study 4-6 weeks after management of patient's acute clinical presentation. Patchy lung base opacification is more likely atelectasis. Minimal pneumonia would be possible. No pleural effusion or pneumothorax. Cardiomegaly without pericardial effusion.
[2021-01-29] MEDS ORDERED: POTASS/SODIUM PHOSPHATE 1 PKT POWD.PACK ONE (15:07)
[2021-01-29] MEDS: ONDANSETRON 4 MG/2 ML VIAL IV PRN (18:42)
[2021-01-29] MEDS: IPRATROPIUM BROM 0.5MG/2.5ML NEB SCH (19:50)
[2021-01-29] MEDS: ALBUTEROL 2.5 MG/3 ML NEB SOL NEB SCH (19:50)
[2021-01-29] MEDS ORDERED: ONDANSETRON 4 MG/2 ML VIAL IV ONE (20:35)
[2021-01-29] MEDS: VANCOMYCIN 2 GM in NA CHLORIDE 0.9% 500 ML IVPB SCH (21:47)
[2021-01-30] MEDS: IPRATROPIUM BROM 0.5MG/2.5ML NEB SCH ×4 (02:00→19:20)
[2021-01-30] MEDS: ALBUTEROL 2.5 MG/3 ML NEB SOL NEB SCH ×4 (02:00→19:20)
[2021-01-30] MEDS: ONDANSETRON 4 MG/2 ML VIAL IV PRN (03:04)
[2021-01-30] MEDS: MORPHINE 2 MG/ML SYR IV PRN (03:17)
[2021-01-30 05:34] LABS: Absolute Lymphocytes (CBC) 1.3 K/uL (0.7-4.9); Basophils % 0.1 % (0-1.3); Hematocrit 30.2 % (39.6-49.0); Lymphocytes % 4.2 % (15.3-44.8); MPV 9.4 fL (7.6-11.3); RBC Red Blood Cell Count 4.25 M/uL (4.33-5.43)
[2021-01-30 05:41] LABS: BUN Blood Urea Nitrogen 25 mg/dL (7-18); Bicarbonate 27 mmol/L (21-32); Glucose Level 120 mg/dL (74-106); Phosphorus 2.4 mg/dL (2.5-4.9); Potassium 3.7 mmol/L (3.5-5.1); Sodium Level 138 mmol/L (136-145)
[2021-01-30] MEDS: POTASS/SODIUM PHOSPHATE 1 PKT POWD.PACK PO SCH ×3 (06:18→09:34)
[2021-01-30] MEDS: LEVOTHYROXINE SOD 0.05 MG TABLET PO SCH (09:00)
[2021-01-30] MEDS ORDERED: POTASSIUM CL SA 10 MEQ TAB PO ONE (09:00)
[2021-01-30] MEDS: MONTELUKAST 10 MG TAB PO SCH (09:25)
[2021-01-30] MEDS: ATORVASTATIN 20 MG TAB PO SCH (09:25)
[2021-01-30] MEDS: DABIGATRAN 150 MG CAP PO SCH ×2 (09:25→20:21)
[2021-01-30] MEDS: AMIODARONE HCL 200 MG TAB PO SCH (09:26)
[2021-01-30] MEDS: CEFEPIME/SWI 2gm 2 GM/20 ML SYR IV SCH (09:26)
--- NOTE | 2021-01-30 13:59 | P.PN ---
Subjective Date of Service: 01/30/21 Chief Complaint: Fatigue, right shoulder pain Patient look sick. Repeat blood cultures still positive for gram positive cocci. Poor oral intake. Physical Examination - Vital Signs Temperature: 97.3 F Blood Pressure: 118/74 Pulse: 86 Respirations: 19 Pulse Ox (%): 95 - Physical Exam General: Alert, In no apparent distress HEENT: Mucous membr. moist/pink, Other (Small sores on the tongue.) Neck: JVD not distended Respiratory: Clear to auscultation bilaterally, Normal air movement Cardiovascular: No edema, Regular rate/rhythm, Normal S1 S2 Gastrointestinal: Soft and benign, Non-distended, No tenderness Musculoskeletal: No swelling, No erythema Integumentary: No rashes Neurological: Normal strength at 5/5 x4 extr, Cranial nerves 3-12 intact - Studies Microbiology Data (last 24 hrs): 01/27/21 14:30 Blood - Blood Aerobic Blood Culture - Final Meth Resistant Staph Aureus 01/27/21 14:30 Blood - Blood Blood Culture Gram Stain - Final 01/27/21 14:30 Blood - Blood Anaerobic Blood Culture - Final Meth Resistant Staph Aureus 01/27/21 14:30 Blood - Blood Gram Stain - Final 01/27/21 14:23 Blood - Blood Aerobic Blood Culture - Final Meth Resistant Staph Aureus 01/27/21 14:23 Blood - Blood Blood Culture Gram Stain - Final 01/27/21 14:23 Blood - Blood Anaerobic Blood Culture - Final Meth Resistant Staph Aureus 01/27/21 14:23 Blood - Blood Gram Stain - Final Assessment And Plan - Current Problems (Diagnosis) (1) Sepsis Current Visit: Yes Status: Acute (2) Acute renal failure Current Visit: Yes Status: Acute (3) Cardiomyopathy Current Visit: Yes Status: Acute (4) Elevated troponin Current Visit: Yes Status: Acute (5) Elevated liver enzymes Current Visit: Yes Status: Acute (6) MRSA bacteremia Current Visit: Yes Status: Acute - Plan MRSA bacteremia of unknown source. Leukocytosis is worse today. Chest x-ray: No acute infiltrate. Continue IV vancomycin. PT IV cefepime Follow blood cultures. Infectious disease consult. TTE echocardiogram given patient has AICD in place. Patient may need AURE to rule out endocarditis given multiple blood cultures growing MRSA in which case he may have to be transferred to a tertiary center. Consult infectious disease. CT thoracic and lumbar spine-no abscess. CT thoracic spine also demonstrate rounded opacity in the right upper load. Round pneumonia not excluded. Elevated troponin likely secondary to sepsis in the contest of CHF. Elevated liver enzymes likely secondary to sepsis. PT evaluation.
--- NOTE | 2021-01-30 14:20 | P.CNS ---
Date of Consult: 01/30/21 Reason for Consult: Sepsis of unknown origin Chief Complaint: Fatigue, right shoulder pain History of Present Illness: The patient is an 80 year old male with a past medical history significant of heart failure status post AICD, history of atrial fibrillation, hypothyroidism, history of throat cancer, hypertension, and cardiomyopathy who presented to the emergency department complaining of generalized weakness and pain in right shoulder pain of 2 days in duration. Patient states that the pain started after he was outside building a chicken coop for his and hurt his arm. After that incident patient began feeling fatigued with general malaise. The patient was concern for possible COVID 19 infection and as such reported to the emergency room. Initial workup in the emergency department revealed severe leukocytosis, elevated lactic acid, and elevated creatinine. Patient was diagnosed with septic shock with blood cultures growing MRSA. Unclear source of sepsis at this time, patient denies any dysuria or urinary tract infection symptoms and his UA is negative. Thoracic and lumbar spine CT are also negative of any abscess formation or osteomyelitis. Chest x-ray shows interstitial pulmonary edema and cardiomegaly-no acute findings of pneumonia. Awaiting Echocardiogram resuts-patient has AICD placed. Patient is currently utilizing 4 L of oxygen via nasal cannula and reports some shortness of breath as well as slight abdominal pain and constipation. She also states that he has had 1 episode of vomiting today. Denies chest pain at this time. Patient has been started on cefepime and vancomycin IV. Vancomycin was started today due to increase in patient's white blood cell count with left-sided shift. Then continue to monitor the patient closely and monitor white blood cell count. Repeat blood culture has also been ordered. Allergies No Known Allergies Allergy (Verified 01/27/21 20:29) Home Medications: Amiodarone HCl [Pacerone] 200 mg PO DAILY 01/28/21 Atorvastatin Calcium 50 mg PO DAILY 01/28/21 Dabigatran Etexilate Mesylate [Pradaxa] 1 cap PO BID 01/28/21 Furosemide 20 mg PO DAILY 01/28/21 Levothyroxine Sodium [Levothyroxine] 50 mcg PO DAILY 01/28/21 Montelukast Sodium 1 tab PO DAILY 01/28/21 - Past Medical/Surgical History Diabetic: No -: CHF -: Hypertension -: Cardiomyopathy -: Thyroid problem -: Throat cancer -: afib -: Pacemaker/AICD insertion -: gemma shoulder sx -: tonsillectomy - Family History Brother Medical History: Cancer Father Medical History: Heart disease Mother Medical History: Heart disease - Social History Alcohol use: No CD- Drugs: No Caffeine use: Yes Place of Residence: Home Review of Systems 10-point ROS is otherwise unremarkable Physical Examination Temp Pulse Resp BP Pulse Ox 97.3 F 86 19 118/74 95 01/30/21 14:06 01/30/21 14:06 01/30/21 14:06 01/30/21 14:06 01/30/21 14:06 General: Alert, In no apparent distress HEENT: Atraumatic, Normocephalic, PERRLA Neck: Supple, 2+ carotid pulse no bruit, JVD not distended Respiratory: Expiratory wheezes, Rhonchi/gurgles (More prominent on the the left lower lobe), Other Cardiovascular: No edema, Normal pulses, Regular rate/rhythm Capillary refill: <2 Seconds Gastrointestinal: Other (Dull to percussion), Distended Musculoskeletal: No clubbing, No swelling, No contractures Integumentary: No rashes, No breakdown, No significant lesion Urinary: Other (No Huffman) External genitalia: Deferred Laboratory Last Values WBC 34.50 K/uL (4.3-10.9) H* 01/27/21 12:44 RBC 4.63 M/uL (4.33-5.43) 01/27/21 12:44 Hgb 10.3 g/dL (13.6-17.9) L 01/27/21 12:44 Hct 33.4 % (39.6-49.0) L 01/27/21 12:44 MCV 72.2 fL (80-100) L D 01/27/21 12:44 MCH 22.2 pg (27.0-35.0) L D 01/27/21 12:44 MCHC 30.7 g/dL (32.0-36.0) L 01/27/21 12:44 RDW 16.4 % (12.1-15.2) H 01/27/21 12:44 Plt Count 222 K/uL (152-406) 01/27/21 12:44 MPV 7.9 fL (7.6-11.3) 01/27/21 12:44 Neutrophils % 96.6 % (41.7-73.7) H 01/27/21 12:44 Lymphocytes % 1.0 % (15.3-44.8) L 01/27/21 12:44 Monocytes % 2.3 % (3.3-12.3) L 01/27/21 12:44 Eosinophils % 0.0 % (0-4.4) 01/27/21 12:44 Basophils % 0.1 % (0-1.3) 01/27/21 12:44 Absolute Neutrophils 33.4 K/uL (1.8-8.0) H 01/27/21 12:44 Segmented Neutrophils 89 % (40-80) H 01/27/21 12:44 Band Neutrophils 6 % (0-1) H 01/27/21 12:44 Absolute Lymphocytes 0.4 K/uL (0.7-4.9) L 01/27/21 12:44 Lymphocytes 1 % (15-42) L 01/27/21 12:44 Monocytes 4 % (0-10) 01/27/21 12:44 Absolute Monocytes 0.8 K/uL (0.1-1.3) 01/27/21 12:44 Absolute Eosinophils 0.0 K/uL (0-0.5) 01/27/21 12:44 Absolute Basophils 0.0 K/uL (0-0.5) 01/27/21 12:44 Platelet Estimate Adeq 01/27/21 12:44 Morphology Comment Not seen (NOT SEEN) 01/27/21 12:44 PT 19.0 SECONDS (9.5-12.5) H 01/27/21 12:44 INR 1.64 01/27/21 12:44 Sodium 133 mmol/L (136-145) L 01/27/21 12:44 Potassium 3.8 mmol/L (3.5-5.1) 01/27/21 12:44 Chloride 99 mmol/L (98-107) 01/27/21 12:44 Carbon Dioxide 21 mmol/L (21-32) 01/27/21 12:44 BUN 30 mg/dL (7-18) H 01/27/21 12:44 Creatinine 1.48 mg/dL (0.55-1.3) H 01/27/21 12:44 Estimated GFR 46 mL/min (=/>90) L 01/27/21 12:44 Glucose 125 mg/dL (74-106) H 01/27/21 12:44 Lactic Acid 5.4 mmol/L (0.4-2.0) H* 01/27/21 18:12 Calcium 8.4 mg/dL (8.5-10.1) L 01/27/21 12:44 Magnesium 1.9 mg/dL (1.8-2.4) 01/27/21 12:44 Total Bilirubin 1.1 mg/dL (0.2-1.0) H 01/27/21 12:44 Direct Bilirubin 0.5 mg/dL (0-0.2) H 01/27/21 12:44 AST 50 U/L (15-37) H 01/27/21 12:44 ALT 36 U/L (12-78) 01/27/21 12:44 Alkaline Phosphatase 128 U/L (45-117) H 01/27/21 12:44 Rapid Troponin I 0.06 ng/mL (0.0-0.045) H 01/27/21 12:44 NT-Pro-B Natriuret Pep 6651 pg/mL (<450) H 01/27/21 12:44 Serum Total Protein 7.6 g/dL (6.4-8.2) 01/27/21 12:44 Albumin 2.9 g/dL (3.4-5.0) L 01/27/21 12:44 Globulin 4.7 g/dL (2.3-3.5) H 01/27/21 12:44 Albumin/Globulin Ratio 0.6 (1.1-1.8) L 01/27/21 12:44 Procalcitonin 30.53 ng/mL (<0.050) H 01/27/21 12:44 Influenza Type A RNA Negative (NEGATIVE) 01/27/21 12:15 Influenza Type B RNA Negative (NEGATIVE) 01/27/21 12:15 SARS-CoV-2 RNA (RT-PCR) Negative (NEGATIVE) 01/27/21 12:15 01/27/21 14:30 Blood - Blood Aerobic Blood Culture - Final Meth Resistant Staph Aureus 01/27/21 14:30 Blood - Blood Blood Culture Gram Stain - Final 01/27/21 14:30 Blood - Blood Anaerobic Blood Culture - Final Meth Resistant Staph Aureus 01/27/21 14:30 Blood - Blood Gram Stain - Final 01/27/21 14:23 Blood - Blood Aerobic Blood Culture - Final Meth Resistant Staph Aureus 01/27/21 14:23 Blood - Blood Blood Culture Gram Stain - Final 01/27/21 14:23 Blood - Blood Anaerobic Blood Culture - Final Meth Resistant Staph Aureus 01/27/21 14:23 Blood - Blood Gram Stain - Final Conclusions/Impression: Antibiotics: Vancomycin start: 01/30 stop: -- Indication: Sepsis Cefepime start: 01/28 stop: -- Indication: sepsis Assessment: -sepsis of unknown origin -congestive heart failure status post AICD placements -history of throat cancer -hypothyroidism -anemia Plan: -continue current antibiotics. Repeat blood culture has been ordered, continue antibiotic treatment for 2 weeks following and negative repeat blood culture. Unclear source of sepsis at this time possibly pneumonia as patient is requiring 4 L of oxygen via nasal cannula and also has abnormal auscultation findings. Recommend repeat chest x-ray or chest CT. Will continue to monitor the patient closely. Patient's white blood cell count continues to increase with most recent CBC showing a WBC of 31.2. Patient has been placed on IV vancomycin today. Repeat CBC ordered for tomorrow AM. -awaiting echo results -medical management per primary team -continue monitor for signs of infection -continue monitor CBC and BMP Plan of care discussed with Dr. Spicer Thank you for consultation
[2021-01-30] MEDS: VANCOMYCIN 2 GM in NA CHLORIDE 0.9% 500 ML IVPB SCH (16:10)
[2021-01-30] MEDS ORDERED: BISACODYL E.C. 5 MG TAB PO ONE (20:23)
[2021-01-31] MEDS: ALBUTEROL 2.5 MG/3 ML NEB SOL NEB SCH ×4 (01:15→20:35)
[2021-01-31] MEDS: IPRATROPIUM BROM 0.5MG/2.5ML NEB SCH ×4 (01:15→20:35)
[2021-01-31] MEDS: ONDANSETRON 4 MG/2 ML VIAL IV PRN ×2 (04:19→11:36)
[2021-01-31 04:35] LABS: Absolute Lymphocytes (CBC) 0.8 K/uL (0.7-4.9); Basophils % 0.5 % (0-1.3); Hematocrit 31.1 % (39.6-49.0); Lymphocytes % 2.4 % (15.3-44.8); MPV 9.3 fL (7.6-11.3); RBC Red Blood Cell Count 4.39 M/uL (4.33-5.43)
[2021-01-31 04:52] LABS: BUN Blood Urea Nitrogen 21 mg/dL (7-18); Bicarbonate 27 mmol/L (21-32); Glucose Level 130 mg/dL (74-106); Phosphorus 2.6 mg/dL (2.5-4.9); Potassium 3.7 mmol/L (3.5-5.1); Sodium Level 136 mmol/L (136-145)
--- NOTE | 2021-01-31 07:54 | RAD REPORT ---
EXAM DESCRIPTION: Tato Single View01/31/2021 4:57 am CLINICAL HISTORY: Hypoxia COMPARISON: January 28 2021 FINDINGS: Mild bilateral interstitial opacities probably mild interstitial pulmonary edema. Heart remains enlarged. Pacemaker leads in place
[2021-01-31] MEDS: AMIODARONE HCL 200 MG TAB PO SCH ×2 (08:42→09:00)
[2021-01-31] MEDS: MONTELUKAST 10 MG TAB PO SCH ×2 (08:42→09:00)
[2021-01-31] MEDS: POTASSIUM CL SA 10 MEQ TAB PO ONE ×2 (08:42→09:00)
[2021-01-31] MEDS: ATORVASTATIN 20 MG TAB PO SCH ×2 (08:43→09:00)
[2021-01-31] MEDS: LEVOTHYROXINE SOD 0.05 MG TABLET PO SCH ×2 (08:44→09:00)
[2021-01-31] MEDS: DABIGATRAN 150 MG CAP PO SCH (09:00)
[2021-01-31] MEDS: VANCOMYCIN 2 GM in NA CHLORIDE 0.9% 500 ML IVPB SCH (10:00)
--- NOTE | 2021-01-31 10:21 | ECHO ---
HEIGHT: 6 ft 0 in WEIGHT: 240 lb 0 oz DATE OF STUDY: 01/30/[address]: lesly leonard 2-DIMENSIONAL: YES M.MODE: YES DOPPLER: YES COLOR FLOW: YES TDS: PORTABLE: DEFINITY: BUBBLE STUDY: DIAGNOSIS: GRAM POSITIVE BACTEREMIA, AICD IN SITU CARDIAC HISTORY: CATHERIZATION: YES SURGERY: NO PROSTHETIC VALVE: NO PACEMAKER: YES MEASUREMENTS (cm) DIASTOLIC (NORMALS) SYSTOLIC (NORMALS) IVSd 1.2 (0.6-1.2) LA Diam 3.5 (1.9-4.0) LVEF 46% LVIDd 4.3 (3.5-5.7) LVIDs 3.3 (2.0-3.5) %FS 23% LVPWd 1.4 (0.6-1.2) Ao Diam 3.1 (2.0-3.7) 2 DIMENSIONAL ASSESSMENT: RIGHT ATRIUM: NORMAL LEFT ATRIUM: NORMAL RIGHT VENTRICLE: NORMAL LEFT VENTRICLE: GLOBAL HYPOKINESIS TRICUSPID VALVE: MILD TRICUSPID REGURGITATION MITRAL VALVE: MILD MITRAL REGURGITATION PULMONIC VALVE: MILD PULMONARY INSUFFIENCY AORTIC VALVE: MILD AORTIC REGURGITATION PERICARDIAL EFFUSION: NONE AORTIC ROOT: NORMAL LEFT VENTRICULAR WALL MOTION: MILD GLOBAL HYPOKINESIS DOPPLER/COLOR FLOW: SEE BELOW COMMENTS: MILDLY DEPRESSED LEFT VENTRICULAR EJECTION FRACTION 40-45%. MILD GLOBAL HYPOKINESIS. MILD AORTIC INSUFFIENCY, MILD TRICUSPID REGURGITATION, MILD PULMONARY INSUFFIENCY. NO VEGETATION IS SEEN. TECHNOLOGIST: TONY ROBERTS
--- NOTE | 2021-01-31 11:18 | RAD REPORT ---
EXAM DESCRIPTION: RAD - Abdomen 1 View (KUB) - 01/31/2021 11:03 am CLINICAL HISTORY: Abdomen pain. FINDINGS: Marked gastric distention The remainder of the bowel gas pattern is unremarkable Patient's nurse Chastity notified
--- NOTE | 2021-01-31 11:43 | RAD REPORT ---
EXAM DESCRIPTION: RAD - Foot Left 3 View - 01/31/2021 11:03 am CLINICAL HISTORY: Left Foot pain and swelling FINDINGS: No fracture or dislocation is seen. Bones are osteoporotic. No bony destructive lesion involving first digit. Large plantar calcaneal spur
[2021-01-31 12:21] LABS: Albumin 1.9 g/dL (3.4-5.0); Bilirubin Direct 0.7 mg/dL (0-0.2); Bilirubin Total 1.2 mg/dL (0.2-1.0); Protein, Total 6.5 g/dL (6.4-8.2)
--- NOTE | 2021-01-31 12:40 | P.PN ---
Subjective Date of Service: 01/31/21 Chief Complaint: Fatigue, right shoulder pain Subjective: Other (nausea this morning, feels abd is more distended, no BM in a few days, +flatus early yesterday. overall feels more fatigued, "slightly worse") Review of Systems 10-point ROS is otherwise unremarkable Physical Examination - Vital Signs Temperature: 98.0 F Blood Pressure: 122/65 Pulse: 100 Respirations: 22 Pulse Ox (%): 96 Assessment & Plan Physician Review Additional Text: Physical Exam General: Alert, mild distress HEENT: Small sores on the tongue erythema Respiratory: mild crackles at base bilaterally, +expiratory wheeze Cardiovascular: No edema, irregularly irregular rhythm, Normal S1 S2 Gastrointestinal: distended, non-tender, +bowel sounds Musculoskeletal: No swelling, No erythema Integumentary: L great toe (medial aspect) - superficial healing ulcer Problem List Sepsis secondary to MRSA bacteremia, unknown primary source Acute renal failure h/o Cardiomyopathy Elevated troponin Elevated liver enzymes Chronic Afib MRSA bacteremia of unknown source. leukocytosis remains elevated CT thoracic and lumbar spine-no abscess. CT thoracic spine also demonstrated rounded opacity in the right upper lung. Round pneumonia not excluded. continue IV antibiotics. ID consulted repeat blood cx (01/30): prelim growing Gram+ cocci in clusters Echo obtained on 01/30 - waiting on read - if negative, may need to be transferred to tertiary care center for AURE - concern for AICD leads vs endocarditis Elevated troponin likely secondary to sepsis in the context of CHF. Elevated liver enzymes likely secondary to sepsis. PT evaluation. Abd distention today - will obtain KUB, received dulcolax overnight. May need NGT / surgery consult unclear reason for hypoxia, pt on 4L NC, with no prior pulm history, no significant cause on CT/CXR. Possible PE in setting of sepsis. will check d- dimer, consider CTA start nystatin swish/swallow for erythematous / sore tongue Dispo: anticipate hospitalization > 2 more days Time Spent Managing Pts Care (In Minutes): 35
--- NOTE | 2021-01-31 13:44 | P.PN ---
Subjective Date of Service: 01/31/21 Chief Complaint: Fatigue, right shoulder pain Patient seen examined at bedside. KUB revealed a distended stomach, NG tube has been placed for decompression. Patient states he is having some irritation due to the recent insertion of the NG tube but denies pain anywhere else. Patient still utilizing 4 L o2 via NC. Review of Systems 10-point ROS is otherwise unremarkable Physical Examination - Vital Signs Temperature: 98.0 F Blood Pressure: 122/65 Pulse: 100 Respirations: 22 Pulse Ox (%): 96 - Physical Exam Other Physical/Emotional Findings: General: Alert, In no apparent distress. HEENT: Atraumatic, Normocephalic, PERRLA. Neck: Supple, 2+ carotid pulse no bruit, JVD not distended. Respiratory: Expiratory wheezes, Rhonchi/gurgles (More prominent on the the left lower lobe), Other. Cardiovascular: No edema, Normal pulses, Regular rate/rhythm. Capillary refill: <2 Seconds. Gastrointestinal: Other (Dull to percussion), Distended. Musculoskeletal: No clubbing, No swelling, No contractures. Integumentary: Wound to the lateral plantar aspect of the right great toe. Wound has no active drainage or bleeding. Purulent tissue is clean and dry. Urinary: Other (No Huffman). External genitalia: Deferred - Studies Laboratory Last Values WBC 34.50 K/uL (4.3-10.9) H* 01/27/21 12:44 RBC 4.63 M/uL (4.33-5.43) 01/27/21 12:44 Hgb 10.3 g/dL (13.6-17.9) L 01/27/21 12:44 Hct 33.4 % (39.6-49.0) L 01/27/21 12:44 MCV 72.2 fL (80-100) L D 01/27/21 12:44 MCH 22.2 pg (27.0-35.0) L D 01/27/21 12:44 MCHC 30.7 g/dL (32.0-36.0) L 01/27/21 12:44 RDW 16.4 % (12.1-15.2) H 01/27/21 12:44 Plt Count 222 K/uL (152-406) 01/27/21 12:44 MPV 7.9 fL (7.6-11.3) 01/27/21 12:44 Neutrophils % 96.6 % (41.7-73.7) H 01/27/21 12:44 Lymphocytes % 1.0 % (15.3-44.8) L 01/27/21 12:44 Monocytes % 2.3 % (3.3-12.3) L 01/27/21 12:44 Eosinophils % 0.0 % (0-4.4) 01/27/21 12:44 Basophils % 0.1 % (0-1.3) 01/27/21 12:44 Absolute Neutrophils 33.4 K/uL (1.8-8.0) H 01/27/21 12:44 Segmented Neutrophils 89 % (40-80) H 01/27/21 12:44 Band Neutrophils 6 % (0-1) H 01/27/21 12:44 Absolute Lymphocytes 0.4 K/uL (0.7-4.9) L 01/27/21 12:44 Lymphocytes 1 % (15-42) L 01/27/21 12:44 Monocytes 4 % (0-10) 01/27/21 12:44 Absolute Monocytes 0.8 K/uL (0.1-1.3) 01/27/21 12:44 Absolute Eosinophils 0.0 K/uL (0-0.5) 01/27/21 12:44 Absolute Basophils 0.0 K/uL (0-0.5) 01/27/21 12:44 Platelet Estimate Adeq 01/27/21 12:44 Morphology Comment Not seen (NOT SEEN) 01/27/21 12:44 PT 19.0 SECONDS (9.5-12.5) H 01/27/21 12:44 INR 1.64 01/27/21 12:44 Sodium 133 mmol/L (136-145) L 01/27/21 12:44 Potassium 3.8 mmol/L (3.5-5.1) 01/27/21 12:44 Chloride 99 mmol/L (98-107) 01/27/21 12:44 Carbon Dioxide 21 mmol/L (21-32) 01/27/21 12:44 BUN 30 mg/dL (7-18) H 01/27/21 12:44 Creatinine 1.48 mg/dL (0.55-1.3) H 01/27/21 12:44 Estimated GFR 46 mL/min (=/>90) L 01/27/21 12:44 Glucose 125 mg/dL (74-106) H 01/27/21 12:44 Lactic Acid 5.4 mmol/L (0.4-2.0) H* 01/27/21 18:12 Calcium 8.4 mg/dL (8.5-10.1) L 01/27/21 12:44 Magnesium 1.9 mg/dL (1.8-2.4) 01/27/21 12:44 Total Bilirubin 1.1 mg/dL (0.2-1.0) H 01/27/21 12:44 Direct Bilirubin 0.5 mg/dL (0-0.2) H 01/27/21 12:44 AST 50 U/L (15-37) H 01/27/21 12:44 ALT 36 U/L (12-78) 01/27/21 12:44 Alkaline Phosphatase 128 U/L (45-117) H 01/27/21 12:44 Rapid Troponin I 0.06 ng/mL (0.0-0.045) H 01/27/21 12:44 NT-Pro-B Natriuret Pep 6651 pg/mL (<450) H 01/27/21 12:44 Serum Total Protein 7.6 g/dL (6.4-8.2) 01/27/21 12:44 Albumin 2.9 g/dL (3.4-5.0) L 01/27/21 12:44 Globulin 4.7 g/dL (2.3-3.5) H 01/27/21 12:44 Albumin/Globulin Ratio 0.6 (1.1-1.8) L 01/27/21 12:44 Procalcitonin 30.53 ng/mL (<0.050) H 01/27/21 12:44 Influenza Type A RNA Negative (NEGATIVE) 01/27/21 12:15 Influenza Type B RNA Negative (NEGATIVE) 01/27/21 12:15 SARS-CoV-2 RNA (RT-PCR) Negative (NEGATIVE) 01/27/21 12:15 Assessment And Plan - Plan Antibiotics: Vancomycin start: 01/30 stop: -- Indication: Sepsis Assessment: -sepsis of unknown origin -congestive heart failure status post AICD placements -history of throat cancer -hypothyroidism -anemia Plan: -continue current antibiotics. Repeat blood cultures on 01/30 are still positive show gram-positive cocci, still waiting species identification but likely still MRSA. Continue antibiotic treatment for 2 weeks following and negative repeat blood culture. Possible source of infection could be the wound due to patient's right great hallux. X-ray has ruled out osteomyelitis however the patient's could still become septic from this wound. Will continue to monitor closely. All other tests have been negative including shoulder x-ray, chest/abdomen/pelvis CT. Patient did have a KUB which showed gastric distention, NG tube has been placed. Awaiting echo results. At this time source of infection is most likely attributed to the patient's wound in his right great toe. Wound care orders placed: Pain with Betadine wrap with kerlix. -medical management per primary team -continue monitor for signs of infection -continue monitor CBC and BMP Plan of care discussed with Dr. Spicer Thank you for consultation Physician Review Additional Text: Physical Exam General: Alert, mild distress HEENT: Small sores on the tongue erythema Respiratory: mild crackles at base bilaterally, +expiratory wheeze Cardiovascular: No edema, irregularly irregular rhythm, Normal S1 S2 Gastrointestinal: distended, non-tender, +bowel sounds Musculoskeletal: No swelling, No erythema Integumentary: L great toe (medial aspect) - superficial healing ulcer Problem List Sepsis secondary to MRSA bacteremia, unknown primary source Acute renal failure h/o Cardiomyopathy Elevated troponin Elevated liver enzymes Chronic Afib MRSA bacteremia of unknown source. leukocytosis remains elevated CT thoracic and lumbar spine-no abscess. CT thoracic spine also demonstrated rounded opacity in the right upper lung. Round pneumonia not excluded. continue IV antibiotics. ID consulted repeat blood cx (01/30): prelim growing Gram+ cocci in clusters Echo obtained on 01/30 - waiting on read - if negative, may need to be transferred to tertiary care center for AURE - concern for AICD leads vs endocarditis Elevated troponin likely secondary to sepsis in the context of CHF. Elevated liver enzymes likely secondary to sepsis. PT evaluation. Abd distention today - will obtain KUB, received dulcolax overnight. May need NGT / surgery consult unclear reason for hypoxia, pt on 4L NC, with no prior pulm history, no significant cause on CT/CXR. Possible PE in setting of sepsis. will check d- dimer, consider CTA start nystatin swish/swallow for erythematous / sore tongue Dispo: anticipate hospitalization > 2 more days
--- NOTE | 2021-01-31 13:50 | RAD REPORT ---
EXAM DESCRIPTION: RAD - Abdomen 1 View (KUB) - 01/31/2021 1:45 pm CLINICAL HISTORY: ngt placement Pain COMPARISON: Abdomen 1 View (KUB) dated 01/31/2021 FINDINGS: Tip of the enteric tube is in the stomach.
[2021-01-31] MEDS: NYSTATIN 500,000 UNIT/5 ML UDC PO SCH (14:00)
--- NOTE | 2021-01-31 21:36 | RAD REPORT ---
EXAM DESCRIPTION: CT - Chest For Pe Angio - 01/31/2021 9:15 pm CLINICAL HISTORY: Chest pain. hypoxia, r/o PE COMPARISON: No comparisons TECHNIQUE: CT angiogram of the pulmonary arteries was performed with MIP. All CT scans are performed using dose optimization technique as appropriate and may include automated exposure control or mA/KV adjustment according to patient size. FINDINGS: No evidence of pulmonary thromboembolism. No acute aortic finding demonstrated. Mild atelectasis is suspected in both lung bases posteriorly. Subtle ground-glass opacities are also present bilaterally. No significant pericardial or pleural fluid. No concerning bony finding. IMPRESSION: No evidence of pulmonary thromboembolism. Moderate atelectasis or infiltrate both lung bases posteriorly.
--- NOTE | 2021-01-31 21:51 | RAD REPORT ---
EXAM DESCRIPTION: CTAbdomen Pelvis W Contrast - 01/31/2021 9:16 pm CLINICAL HISTORY: Abdominal pain. abdomen distended, eval gastric emptying as well COMPARISON: No comparisons TECHNIQUE: Biphasic CT imaging of the abdomen and pelvis was performed with 100 ml non-ionic IV cont rast. All CT scans are performed using dose optimization technique as appropriate and may include automated exposure control or mA/KV adjustment according to patient size. FINDINGS: Linear atelectasis is present in both lung bases.Multi lead pacer device is present. Nasogastric tube is present in the stomach. Contrast is seen emptying the stomach into the duodenum i n a normal fashion. The liver, spleen, pancreas, adrenal glands and kidneys are within normal limits. No bowel obstruction, free air, free fluid or abscess. Sigmoid diverticulosis coli without diverticul itis. The appendix is not identified as a discrete structure, however, no secondary findings of appen dicitis are identified. No evidence of significant lymphadenopathy. No suspicious bony findings. IMPRESSION: No acute or aggressive intra-abdominal or pelvic finding.
[2021-02-01] MEDS: DABIGATRAN 150 MG CAP PO SCH ×3 (00:08→21:15)
[2021-02-01] MEDS: NYSTATIN 500,000 UNIT/5 ML UDC PO SCH ×4 (00:09→21:15)
[2021-02-01] MEDS: ALBUTEROL 2.5 MG/3 ML NEB SOL NEB SCH ×4 (01:50→19:45)
[2021-02-01] MEDS: IPRATROPIUM BROM 0.5MG/2.5ML NEB SCH ×4 (01:50→19:45)
[2021-02-01 03:32] LABS: Absolute Lymphocytes (CBC) 1.3 K/uL (0.7-4.9); Basophils % 0.1 % (0-1.3); Hematocrit 31.5 % (39.6-49.0); Lymphocytes % 3.4 % (15.3-44.8); MPV 9.4 fL (7.6-11.3); RBC Red Blood Cell Count 4.46 M/uL (4.33-5.43)
[2021-02-01 03:47] LABS: ALT/SGPT 38 U/L (12-78); AST/SGOT 49 U/L (15-37); Albumin 1.9 g/dL (3.4-5.0); Alkaline Phosphatase 134 U/L (45-117); BUN Blood Urea Nitrogen 20 mg/dL (7-18); Bicarbonate 29 mmol/L (21-32); Bilirubin Total 1.3 mg/dL (0.2-1.0); Glucose Level 118 mg/dL (74-106); Magnesium 2.4 mg/dL (1.8-2.4); Potassium 3.6 mmol/L (3.5-5.1); Protein, Total 6.3 g/dL (6.4-8.2); Sodium Level 136 mmol/L (136-145)
[2021-02-01] MEDS: VANCOMYCIN 2 GM in NA CHLORIDE 0.9% 500 ML IVPB SCH ×2 (04:18→17:15)
[2021-02-01] MEDS: ACETAMINOPHEN 500 MG TAB PO PRN (04:41)
[2021-02-01 07:00] LABS: Anisocytosis 1+; Blood Morphology Comment NOTED (NOT SEEN); Hypochromasia 1+; Platelet Estimate ADEQ; White Blood Cell Scan OK (OK)
[2021-02-01] MEDS: LEVOTHYROXINE SOD 0.05 MG TABLET PO SCH (09:00)
[2021-02-01] MEDS ORDERED: POTASSIUM 25 MEQ EFFERV TAB FT ONE (09:00)
[2021-02-01] MEDS: MONTELUKAST 10 MG TAB PO SCH (10:00)
[2021-02-01] MEDS: ATORVASTATIN 20 MG TAB PO SCH (10:00)
[2021-02-01] MEDS: AMIODARONE HCL 200 MG TAB PO SCH (10:00)
[2021-02-01] MEDS: ONDANSETRON 4 MG/2 ML VIAL IV PRN ×2 (10:01→17:15)
--- NOTE | 2021-02-01 10:37 | CON ---
Date of Consultation: 01/31/2021 Brief History Of Present Illness: The patient is an 80-year-old gentleman, admitted on 01/27/2021 wi th fatigue and right shoulder pain after swinging a sledgehammer working outside. He has a history o f heart failure, AICD placement, atrial fibrillation. He had worsening complaints of fatigue, right shoulder pain for 2 days prior, and he was admitted to the hospital with the above-stated complaints. He was noted to have a recent enlargement of his stomach on a flat film KUB and as such, I was cons ulted for possible gastrointestinal complaints. His diagnosis was that of MRSA bacteremia on admissi on from an uncertain source at this point. Past Medical History: Significant for CHF, hypertension, cardiomyopathy, thyroid cancer, throat canc er, pacemaker, AICD placement. Family History: His brother had a history of lung cancer. Social History: He denies smoking, alcohol, recreational drug use. Review of Systems: Ten-point review of systems other than HPI, denies. Home Medications: Included amiodarone, atorvastatin, Pradaxa, Lasix, levothyroxine, and montelukast. Physical Examination: Vital Signs: At the time of my examination; his vital signs were a blood pressure of 122/65, heart r ate was 100, respiratory rate 22, temperature 98.0, SpO2 96% on room air. The patient denied any marj n during the examination. General: He is awake, alert, and oriented. Psychiatric: He is appropriate, conversive. HEENT: Normocephalic. His sclerae were anicteric. His mucous membranes are moist. His oropharynx is clear. He had an NG tube in place with only approximately 300 mL of dark effluent. It did not ap pear bloody. It appeared to be somewhat bilious on appearance, but it appeared to be normal enteric contents. Neck: Supple without JVD. Chest: Normal expansion and excursion. Cardiovascular: Irregular rhythm, regular rate. Abdomen: Soft, nontender with minimal distention. No rebound. No guarding. No focal peritonitis. He was somewhat tympanic on examination. Extremities: No clubbing, cyanosis, edema. He did have a small wound on his great toe of his right foot, but no evidence of cellulitis or tenderness in this area or drainage or evidence for active inf ection at this area of any significance. Laboratory Data: He had a laboratory exam, which revealed a white blood count of 31.1, hemoglobin is 9.5, hematocrit 31.1, platelet count was 187. His neutrophils were 87%. His D-dimer was 4176. Sod ium was 136, potassium 3.71, chloride 101, carbon dioxide 27, BUN 21, creatinine 0.5, glucose was 130 . His phosphorus was 2.6. His total bilirubin 1.2, direct component 0.7. His AST is 68, ALT 46, al kaline phosphatase is 127. C-reactive protein was 148. Procalcitonin was 4.2. He had multiple imag ing studies since admission. He had a KUB performed on 01/31 as well as CTA performed on 01/31. CTA of the chest/thorax was officially read as no evidence of pulmonary thromboembolism, moderate atelec tasis or infiltrate both lung bases posteriorly. He additionally had a CT abdomen with p.o. contrast on 01/31 in conjunction with a CTA, which was officially read as no acute or aggressive intraabdomin al pelvic findings. Specifically, nasogastric tube was in the stomach. Contrast seen entering stoma ch into the duodenum in a normal fashion. No bowel obstruction or free air. There is sigmoid divert iculosis coli without diverticulitis. The appendix has no secondary findings of appendicitis. No ev idence of significant lymphadenopathy. He had a foot x-ray performed on 01/31 as well, which was off icially read as no fracture dislocation. Bones are osteoporotic. No bony destructive lesions, first digit large calcaneal spur. Assessment And Plan: This is an 80-year-old male, who comes in with bacteremia from uncertain source . 1.Continue medical management. 2.The patient may have some blood/neoplastic process that may be contributing to his significant erika vated white blood cell count. I do not find a surgical cause or infectious cause on his physical exa m for the elevated white blood cell count at this time. He does not have any gastrointestinal compla ints suspicious for any gastrointestinal pathology such as colitis or any other gastrointestinal sour ce. In addition, I do not find any wounds significantly contributing to his overall clinical picture . As such, I recommend continuation and complete fever workup and continue medical management. I wi ll follow along with you. From a surgical standpoint, remove NG tube and start clear liquid diet at this point and nutritional optimization and continue plan per Dr. Son. ARMANDO/AVLERIE Voice ID: [id number] Report ID: [id number]
--- NOTE | 2021-02-01 11:31 | P.PN ---
Subjective Date of Service: 02/01/21 Chief Complaint: Fatigue, right shoulder pain Subjective: Improving (no abdominal pain, less distended) Physical Examination - Vital Signs Temperature: 97.3 F Blood Pressure: 126/63 Pulse: 99 Respirations: 19 Pulse Ox (%): 99 - Physical Exam General: Alert, In no apparent distress, Cooperative Neck: Supple Respiratory: Clear to auscultation bilaterally Cardiovascular: Regular rate/rhythm Gastrointestinal: Soft and benign, Non-distended, No ascites, No tenderness, No masses, No rebound, No guarding Neurological: Normal speech Other Physical/Emotional Findings: General: Alert, In no apparent distress. HEENT: Atraumatic, Normocephalic, PERRLA. Neck: Supple, 2+ carotid pulse no bruit, JVD not distended. Respiratory: Expiratory wheezes, Rhonchi/gurgles (More prominent on the the left lower lobe), Other. Cardiovascular: No edema, Normal pulses, Regular rate/rhythm. Capillary refill: <2 Seconds. Gastrointestinal: Other (Dull to percussion), Distended. Musculoskeletal: No clubbing, No swelling, No contractures. Integumentary: Wound to the lateral plantar aspect of the right great toe. Wound has no active drainage or bleeding. Purulent tissue is clean and dry. Urinary: Other (No Huffman). External genitalia: Deferred Assessment And Plan - Current Problems (Diagnosis) (1) MRSA bacteremia Current Visit: Yes Status: Acute Plan: \ - continue medical workup - serial abdominal exams - DC NGT and start clears - antibiotics, fever workup to continue - if no signs of infection, consider DC antibiotics to rule out drug fever Physician Review Additional Text: Physical Exam General: Alert, mild distress HEENT: Small sores on the tongue erythema Respiratory: mild crackles at base bilaterally, +expiratory wheeze Cardiovascular: No edema, irregularly irregular rhythm, Normal S1 S2 Gastrointestinal: distended, non-tender, +bowel sounds Musculoskeletal: No swelling, No erythema Integumentary: L great toe (medial aspect) - superficial healing ulcer Problem List Sepsis secondary to MRSA bacteremia, unknown primary source Acute renal failure h/o Cardiomyopathy Elevated troponin Elevated liver enzymes Chronic Afib MRSA bacteremia of unknown source. leukocytosis remains elevated CT thoracic and lumbar spine-no abscess. CT thoracic spine also demonstrated rounded opacity in the right upper lung. Round pneumonia not excluded. continue IV antibiotics. ID consulted repeat blood cx (01/30): prelim growing Gram+ cocci in clusters Echo obtained on 01/30 - waiting on read - if negative, may need to be transferred to tertiary care center for AURE - concern for AICD leads vs endocarditis Elevated troponin likely secondary to sepsis in the context of CHF. Elevated abe er enzymes likely secondary to sepsis. PT evaluation. Abd distention today - will obtain KUB, received dulcolax overnight. May need NGT / surgery consult unclear reason for hypoxia, pt on 4L NC, with no prior pulm history, no significant cause on CT/CXR. Possible PE in setting of sepsis. will check d- dimer, consider CTA start nystatin swish/swallow for erythematous / sore tongue Dispo: anticipate hospitalization > 2 more days
--- NOTE | 2021-02-01 12:32 | PN ---
Subjective: The patient lying in bed. by the bedside. Denies any headache, nausea, vomiting, chest pain, abdominal pain, constipation, or diarrhea. Feeling much better today. No other complain ts. Concerned regarding foot ulcer, which might be the reason for his bacteremia. Objective: Vital Signs: Temperature 97, pulse 99, respirations 19, blood pressure 126/63. Lungs: Clear to auscultation. Heart: S1, S2. Regular. Abdomen: Soft, nontender. Bowel sounds present. Extremity: Left foot ulceration noted on the big toe with callus formation. Hammertoe deformity als o noted in the toes. Laboratory Data: Shows WBC 37,000, hemoglobin 9.6, platelets 256. Chemistry shows sodium 136, potas sium 3.6, chloride 100, bicarb 19, BUN 20, creatinine 0.6, glucose is 118. His albumin level is 1.9. Procalcitonin is 2.95. His x-ray of the foot shows no fracture, dislocation. Bones are osteopenic . No other bony destruction noted. Large plantar calcaneus spur was also noted. A KUB done yesterd ay shows no abnormal finding, except the tip of the enteric tube in the stomach. Assessment And Plan: An 80-year-old male with previous history of lymphoma, coming in with leukocyto sis and bacteremia secondary to methicillin-resistant Staphylococcus aureus, currently being treated with IV antibiotic, vancomycin. The patient's leukocytosis, concern regarding possible leukemia vers us lymphoma versus infectious etiology, bacteremia secondary to methicillin-resistant Staphylococcus aureus. The patient is on proper treatment at this time. We will think about adding possible gram-n egative coverage. Otherwise, continue gram-positive vanco or doxy on discharge once the cultures com e back negative. Continue supportive care. Foot ulceration is stable. Keep leg elevated. Recommen d also to have front offloading shoes or cut off shoes to help him heal the wound and also apply Betadine to the wound site and cover with foam and gauze. Continue supportive care. We will follow the patient as needed. NF/MODL Voice ID: [id number] Report ID: [id number]
--- NOTE | 2021-02-01 14:01 | P.PN ---
Subjective Date of Service: 02/01/21 Chief Complaint: Fatigue, right shoulder pain Subjective: Improving (feels slightly better today, continues with fatigue/lethargy, and SOB WBC worsening T: 100.2 this mrbranden.) Review of Systems 10-point ROS is otherwise unremarkable Physical Examination - Vital Signs Temperature: 97.4 F Blood Pressure: 117/67 Pulse: 94 Respirations: 18 Pulse Ox (%): 95 - Physical Exam Other Physical/Emotional Findings: General: Alert, In no apparent distress. HEENT: Atraumatic, Normocephalic, PERRLA. Neck: Supple, 2+ carotid pulse no bruit, JVD not distended. Respiratory: Expiratory wheezes, Rhonchi/gurgles (More prominent on the the left lower lobe), Other. Cardiovascular: No edema, Normal pulses, Regular rate/rhythm. Capillary refill: <2 Seconds. Gastrointestinal: Other (Dull to percussion), Distended. Musculoskeletal: No c lubbing, No swelling, No contractures. Integumentary: Wound to the lateral plantar aspect of the right great toe. Wound has no active drainage or bleeding. Purulent tissue is clean and dry. Urinary: Other (No Huffman). External genitalia: Deferred Assessment & Plan Physician Review Additional Text: Physical Exam General: Alert, NAD, AAOx3 HEENT: normal conjunctiva, sclera anicteric Respiratory: mild crackles at base bilaterally, on 3L NC Cardiovascular: No edema, irregularly irregular rhythm, Normal S1 S2 Gastrointestinal: soft, non-tender, + bowel sounds, mild/minimal disentition Musculoskeletal: No swelling, No erythema Integumentary: L great toe (medial aspect) - superficial healed ulcer Problem List Sepsis secondary to MRSA bacteremia, unknown primary source Acute renal failure h/o Cardiomyopathy Elevated troponin Elevated liver enzymes Chronic Afib h/o lymphoma MRSA bacteremia of unknown source. leukocytosis remains elevated / worsening. however, clinically patient appears better today CT thoracic and lumbar spine-no abscess. CT thoracic spine also demonstrated rounded opacity in the right upper lung. Round pneumonia not excluded. continue IV antibiotics. ID consulted -- unclear source as well. Blood cultures remained positive for MRSA Echo obtained on 01/30 - no vegetation seen. may need to be transferred to tertiary care center for AURE - concern for AICD leads vs endocarditis Elevated troponin likely secondary to sepsis in the context of CHF. Elevated liver enzymes likely secondary to sepsis. Abd distention improved with NGT placement on 01/31; general surgery consulted for gastric distention. CTA chest, CT abdomen performed without acute findings - to r/o obstruction and to r/o PE. started nystatin swish/swallow for erythematous / sore tongue on 01/31 discussed with ID, feel patient looks well to have >30k leukocytosis due to infection. Peripheral smear read as reactive. ID recommended Heme/Onc consut to r/o any heme pathology given h/o lymphoma CRP climbing, Procal significantly dropped. Dispo: anticipate hospitalization > 2 more days looks slightly better today Time Spent Managing Pts Care (In Minutes): 35
[2021-02-02] MEDS: ALBUTEROL 2.5 MG/3 ML NEB SOL NEB SCH ×4 (01:45→19:40)
[2021-02-02] MEDS: IPRATROPIUM BROM 0.5MG/2.5ML NEB SCH ×4 (01:45→19:40)
[2021-02-02] MEDS: VANCOMYCIN 2 GM in NA CHLORIDE 0.9% 500 ML IVPB SCH ×2 (05:29→17:24)
[2021-02-02 05:34] LABS: Basophils % 0.1 % (0-1.3); Hematocrit 30.8 % (39.6-49.0); Lymphocytes % 2.8 % (15.3-44.8); MPV 8.9 fL (7.6-11.3); RBC Red Blood Cell Count 4.34 M/uL (4.33-5.43)
[2021-02-02 06:11] LABS: ALT/SGPT 31 U/L (12-78); AST/SGOT 42 U/L (15-37); Albumin 1.7 g/dL (3.4-5.0); BUN Blood Urea Nitrogen 18 mg/dL (7-18); Bicarbonate 31 mmol/L (21-32); Bilirubin Total 1.2 mg/dL (0.2-1.0); Glucose Level 114 mg/dL (74-106); Magnesium 2.5 mg/dL (1.8-2.4); Potassium 3.6 mmol/L (3.5-5.1); Sodium Level 137 mmol/L (136-145)
[2021-02-02] MEDS: LEVOTHYROXINE SOD 0.05 MG TABLET PO SCH (09:00)
[2021-02-02 09:27] LABS: Platelet Estimate ADEQ; White Blood Cell Scan OK (OK)
[2021-02-02 09:28] LABS: Anisocytosis 1+; Blood Morphology Comment NOTED (NOT SEEN); Hypochromasia 1+; Toxic Granulation 1+
[2021-02-02] MEDS: AMIODARONE HCL 200 MG TAB PO SCH (09:29)
[2021-02-02] MEDS: NYSTATIN 500,000 UNIT/5 ML UDC PO SCH ×3 (09:29→21:54)
[2021-02-02] MEDS: POTASSIUM 25 MEQ EFFERV TAB PO SCH ×2 (09:29→21:54)
[2021-02-02] MEDS: ACETAMINOPHEN 500 MG TAB PO PRN (09:29)
[2021-02-02] MEDS: DABIGATRAN 150 MG CAP PO SCH ×2 (09:30→21:54)
[2021-02-02] MEDS: MONTELUKAST 10 MG TAB PO SCH (09:31)
[2021-02-02] MEDS: ATORVASTATIN 20 MG TAB PO SCH (09:31)
--- NOTE | 2021-02-02 11:04 | RAD REPORT ---
EXAM DESCRIPTION: RAD - Abdomen 1 View (KUB) - 02/02/2021 10:48 am CLINICAL HISTORY: abdominal distention Pain COMPARISON: Abdomen 1 View (KUB) dated 01/31/2021; Abdomen 1 View (KUB) dated 01/31/2021; Abdomen Pe lvis W Contrast dated 01/31/2021; Chest For Pe Angio dated 01/31/2021 FINDINGS: Stomach bubble distention is again seen with air. Enteric tube is not seen. Moderate stool is retained in the colon.
--- NOTE | 2021-02-02 12:02 | P.PN ---
Subjective Date of Service: 02/02/21 Chief Complaint: Fatigue, right shoulder pain Patient seen examined at bedside. Feeling better today. Review of Systems 10-point ROS is otherwise unremarkable Physical Examination - Vital Signs Temperature: 97.3 F Blood Pressure: 126/67 Pulse: 97 Respirations: 18 Pulse Ox (%): 97 - Studies Microbiology 01/27/21 14:30 Blood - Blood Aerobic Blood Culture - Final Meth Resistant Staph Aureus 01/27/21 14:30 Blood - Blood Blood Culture Gram Stain - Final 01/27/21 14:30 Blood - Blood Anaerobic Blood Culture - Final Meth Resistant Staph Aureus 01/27/21 14:30 Blood - Blood Gram Stain - Final 01/27/21 14:23 Blood - Blood Aerobic Blood Culture - Final Meth Resistant Staph Aureus 01/27/21 14:23 Blood - Blood Blood Culture Gram Stain - Final 01/27/21 14:23 Blood - Blood Anaerobic Blood Culture - Final Meth Resistant Staph Aureus 01/27/21 14:23 Blood - Blood Gram Stain - Final Assessment And Plan - Plan Physical Exam: General: Alert, In no apparent distress HEENT: Atraumatic, Normocephalic, PERRLA Neck: Supple, 2+ carotid pulse no bruit, JVD not distended Respiratory: clear to auscultation Cardiovascular: No edema, Normal pulses, Regular rate/rhythm Capillary refill: <2 Seconds Gastrointestinal:normal findings Musculoskeletal: No clubbing, No swelling, No contractures Integumentary: Wound to the lateral plantar aspect of the right great toe. Wound has no active drainage or bleeding. Purulent tissue is clean and dry. Urinary: Other (No Huffman) Antibiotics: Vancomycin start: 01/30 stop: -- Indication: Sepsis Assessment: -sepsis of unknown origin -congestive heart failure status post AICD placements -history of throat cancer -hypothyroidism -anemia Plan: -continue current antibiotics. Vanco trough levels not in theraputic range.Spoke [facility] about adjusting the dose. Would like trough level of 15-20 for MRSA bactermeia. Repeat cultures pending. Possible source of infection could be the wound due to patient's right great hallux. X-ray has ruled out osteomyelitis however the patient's could still become septic from this wound. Will continue to monitor closely. All other tests have been nega tive including shoulder x-ray, chest/abdomen/pelvis CT. Patient did have a KUB which showed gastric distention, NG tube has been placed. Awaiting echo results. At this time source of infection is most likely attributed to the patient's wound in his right great toe. Wound care orders placed: Pain with Betadine wrap with kerlix. -medical management per primary team -continue monitor for signs of infection -continue monitor CBC and BMP Plan of care discussed with Dr. Spicer Thank you for consultation
[2021-02-02] MEDS ORDERED: BISACODYL 10 MG RECTAL SUPP PR ONE (12:23)
--- NOTE | 2021-02-02 12:27 | P.PN ---
Subjective Date of Service: 02/02/21 Chief Complaint: Fatigue, right shoulder pain Patient feels somewhat distended again, had some nausea emesis, continues to have small bowel movements. Physical Examination - Vital Signs Temperature: 97.3 F Blood Pressure: 126/67 Pulse: 97 Respirations: 18 Pulse Ox (%): 97 - Physical Exam General: Alert, In no apparent distress, Cooperative HEENT: Mucous membr. moist/pink Respiratory: Normal air movement Gastrointestinal: Soft and benign, No ascites, No tenderness, No masses, No rebound, No guarding, Distended Other Physical/Emotional Findings: General: Alert, In no apparent distress. HEENT: Atraumatic, Normocephalic, PERRLA. Neck: Supple, 2+ carotid pulse no bruit, JVD not distended. Respiratory: Expiratory wheezes, Rhonchi/gurgles (More prominent on the the left lower lobe), Other. Cardiovascular: No edema, Normal pulses, Regular rate/rhythm. Capillary refill: <2 Seconds. Gastrointestinal: Other (Dull to percussion), Distended. Musculoskeletal: No clubbing, No swelling, No contractures. Integumentary: Wound to the lateral plantar aspect of the right great toe. Wound has no active drainage or bleeding. Purulent tissue is clean and dry. Urinary: Other (No Huffman). External genitalia: Deferred Assessment And Plan - Current Problems (Diagnosis) (1) MRSA bacteremia Current Visit: Yes Status: Acute Plan: \ - continue medical workup - serial abdominal exams - clears - antibiotics, fever workup to continue - if no signs of infection, consider DC antibiotics to rule out drug fever - gastric emptying study with small bowel transit time ? gastroparesis Physician Review Additional Text: Physical Exam General: Alert, NAD, AAOx3 HEENT: normal conjunctiva, sclera anicteric Respiratory: mild crackles at base bilaterally, on 3L NC Cardiovascular: No edema, irregularly irregular rhythm, Normal S1 S2 Gastrointestinal: soft, non-tender, + bowel sounds, mild/minimal disentition Musculoskeletal: No swelling, No erythema Integumentary: L great toe (medial aspect) - superficial healed ulcer Problem List Sepsis secondary to MRSA bacteremia, unknown primary source Acute renal failure h/o Cardiomyopathy Elevated troponin Elevated liver enzymes Chronic Afib h/o lymphoma MRSA bacteremia of unknown source. leukocytosis remains elevated / worsening. however, clinically patient appears better today CT thoracic and lumbar spine-no abscess. CT thoracic spine also demonstrated rounded opacity in the right upper lung. Round pneumonia not excluded. continue IV antibiotics. ID consulted -- unclear source as well. Blood cultures remained positive for MRSA Echo obtained on 01/30 - no vegetation seen. may need to be transferred to tertiary care center for AURE - concern for AICD leads vs endocarditis Elevated troponin likely secondary to sepsis in the context of CHF. Elevated liver enzymes likely secondary to sepsis. Abd distention improved with NGT placement on 01/31; general surgery consulted for gastric distention. CTA chest, CT abdomen performed without acute findings - to r/o obstruction and to r/o PE. started nystatin swish/swallow for erythematous / sore tongue on 01/31 discussed with ID, feel patient looks well to have >30k leukocytosis due to infection. Peripheral smear read as reactive. ID recommended Heme/Onc consut to r/o any heme pathology given h/o lymphoma CRP climbing, Procal significantly dropped. Dispo: anticipate hospitalization > 2 more days looks slightly better today
--- NOTE | 2021-02-02 12:34 | P.PN ---
Subjective Date of Service: 02/02/21 Chief Complaint: Fatigue, right shoulder pain Subjective: Other (patient feels abdomen is distended again, with some burping. had BM yesterday after enema, passing flatus overnight. reports ongoing lower back pain - began a few days prior to admission, has had somewhat similar in past, but this is worse. along with generalized weakness, legs weaker than arms) Review of Systems 10-point ROS is otherwise unremarkable Physical Examination - Vital Signs Temperature: 97.3 F Blood Pressure: 126/67 Pulse: 97 Respirations: 18 Pulse Ox (%): 97 Assessment & Plan Physician Review Additional Text: Physical Exam General: Alert, AAOx3 HEENT: normal conjunctiva, sclera anicteric Respiratory: mild crackles at base bilaterally, on 3L NC Cardiovascular: No edema, irregularly irregular rhythm, Normal S1 S2 Gastrointestinal: distended, nontender, no rebound Musculoskeletal: No swelling, No erythema. 4+/5 b/l lower leg weakness Integumentary: L great toe (medial aspect) - superficial healed ulcer Problem List Sepsis secondary to MRSA bacteremia, unknown primary source Acute renal failure h/o Cardiomyopathy Elevated troponin Elevated liver enzymes Chronic Afib h/o lymphoma MRSA bacteremia of unknown source. leukocytosis remains elevated; slight improvement today. pt clinically appears better, however abd distention again CT thoracic and lumbar spine-no abscess. CT thoracic spine also demonstrated rounded opacity in the right upper lung. Round pneumonia not excluded. continue IV antibiotics. ID consulted -- unclear source as well. Blood cultures remained positive for MRSA - repeat blood cultures (02/02) Echo obtained on 01/30 - no vegetation seen. Elevated troponin likely secondary to sepsis in the context of CHF. Elevated liver enzymes likely secondary to sepsis. Abd distention improved with NGT placement on 01/31; general surgery consulted for gastric distention. CTA chest, CT abdomen performed without acute findings - to r/o obstruction and to r/o PE. NGT removed. Pt now again with distention. ?gastroparesis. reglan started 02/02, gastric emptying study ordered has moderate stool / constipation, had BM yesterday after enema, will give dulcolax again today, enema if not effective started nystatin swish/swallow for erythematous / sore tongue on 01/31 discussed with ID, feel patient looks well to have >30k leukocytosis due to infection. Peripheral smear read as reactive. ID recommended Heme/Onc consut to r/o any heme pathology given h/o lymphoma. discussed with Dr. Ferguson - who reviewed imaging / labs, and feels this is very unlikely to be due to lymphoma/ cancer related. CRP improving, Procal improving obtain lumbar MRI - pt with AICD - states he believes he was told he it was ok for MRI, doesn't have card/info on him, to look for it Dispo: anticipate hospitalization > 2 more days seems to be improving, except now dealing with abdominal distention for unknown reason, no history Time Spent Managing Pts Care (In Minutes): 35
[2021-02-02] MEDS ORDERED: METOCLOPRAMIDE 10MG/10ML UCUP PO SCH (13:00)
--- NOTE | 2021-02-02 19:15 | RAD REPORT ---
EXAM DESCRIPTION: RAD - Chest Single View - 02/02/2021 7:07 pm CLINICAL HISTORY: PICC line placement COMPARISON: None. FINDINGS: Portable chest was obtained following placement of a right upper extremity PICC line. The catheter tip is in the mid SVC.
[2021-02-03] MEDS: IPRATROPIUM BROM 0.5MG/2.5ML NEB SCH ×4 (02:00→19:35)
[2021-02-03] MEDS: ALBUTEROL 2.5 MG/3 ML NEB SOL NEB SCH ×4 (02:00→19:35)
[2021-02-03] MEDS: FAMOTIDINE 20 MG/2 ML VIAL IV SCH ×2 (05:46→09:00)
--- NOTE | 2021-02-03 08:25 | RAD REPORT ---
EXAM DESCRIPTION: NM - Gastric Emptying Study - 02/03/2021 8:19 am CLINICAL HISTORY: Abdominal pain/gastric distention COMPARISON: None. TECHNIQUE: The patient was administered approximately 1 mCi Tc 99m sulfur colloid in solid egg meal. Imaging of the left upper quadrant was performed with time/activity curve generated. FINDINGS: The half-time gastric emptying equals 198 minutes. Normal value(45 minutes to 110 minutes ) Lag phase duration 40 minutes Retention at 120 minutes = 70 % IMPRESSION: Delayed gastric emptying
[2021-02-03] MEDS: NYSTATIN 500,000 UNIT/5 ML UDC PO SCH ×3 (09:00→20:58)
[2021-02-03] MEDS: LEVOTHYROXINE SOD 0.05 MG TABLET PO SCH (09:00)
--- NOTE | 2021-02-03 09:40 | P.PN ---
Subjective Date of Service: 02/03/21 Chief Complaint: Fatigue, right shoulder pain Patient feels somewhat distended again, had some nausea emesis, continues to have small bowel movements. Physical Examination - Vital Signs Temperature: 97.7 F Blood Pressure: 119/59 Pulse: 98 Respirations: 22 Pulse Ox (%): 95 - Physical Exam General: Alert, In no apparent distress, Cooperative HEENT: Mucous membr. moist/pink Respiratory: Clear to auscultation bilaterally Gastrointestinal: Soft and benign, No ascites, No tenderness, No masses, No rebound, No guarding, Distended Other Physical/Emotional Findings: General: Alert, In no apparent distress. HEENT: Atraumatic, Normocephalic, PERRLA. Neck: Supple, 2+ carotid pulse no bruit, JVD not distended. Respiratory: Expiratory wheezes, Rhonchi/gurgles (More prominent on the the left lower lobe), Other. Cardiovascular: No edema, Normal pulses, Regular rate/rhythm. Capillary refill: <2 Seconds. Gastrointestinal: Other (Dull to percussion), Distended. Musculoskeletal: No clubbing, No swelling, No contractures. Integumentary: Wound to the lateral plantar aspect of the right great toe. Wound has no active drainage or bleeding. Purulent tissue is clean and dry. Urinary: Other (No Huffman). External genitalia: Deferred Assessment And Plan - Current Problems (Diagnosis) (1) MRSA bacteremia Current Visit: Yes Status: Acute Plan: \ - continue medical workup - serial abdominal exams - clears - antibiotics, fever workup to continue - gastric emptying study shows gastroparesis, start reglan Physician Review Additional Text: Physical Exam General: Alert, AAOx3 HEENT: normal conjunctiva, sclera anicteric Respiratory: mild crackles at base bilaterally, on 3L NC Cardiovascular: No edema, irregularly irregular rhythm, Normal S1 S2 Gastrointestinal: distended, nontender, no rebound Musculoskeletal: No swelling, No erythema. 4+/5 b/l lower leg weakness Integumentary: L great toe (medial aspect) - superficial healed ulcer Problem List Sepsis secondary to MRSA bacteremia, unknown primary source Acute renal failure h/o Cardiomyopathy Elevated troponin Elevated liver enzymes Chronic Afib h/o lymphoma MRSA bacteremia of unknown source. leukocytosis remains elevated; slight improvement today. pt clinically appears better, however abd distention again CT thoracic and lumbar spine-no abscess. CT thoracic spine also demonstrated rounded opacity in the right upper lung. Round pneumonia not excluded. continue IV antibiotics. ID consulted -- unclear source as well. Blood cultures remained positive for MRSA - repeat blood cultures (02/02) Echo obtained on 01/30 - no vegetation seen. Elevated troponin likely secondary to sepsis in the context of CHF. Elevated liver enzymes likely secondary to sepsis. Abd distention improved with NGT placement on 01/31; general surgery consulted for gastric distention. CTA chest, CT abdomen performed without acute findings - to r/o obstruction and to r/o PE. NGT removed. Pt now again with distention. ?gastroparesis. reglan started 02/02, gastric emptying study ordered has moderate stool / constipation, had BM yesterday after enema, will give dulcolax again today, enema if not effective started nystatin swish/swallow for erythematous / sore tongue on 01/31 discussed with ID, feel patient looks well to have >30k leukocytosis due to infection. Peripheral smear read as reactive. ID recommended Heme/Onc consut to r/o any heme pathology given h/o lymphoma. discussed with Dr. Ferguson - who reviewed imaging / labs, and feels this is very unlikely to be due to lymphoma/ cancer related. CRP improving, Procal improving obtain lumbar MRI - pt with AICD - states he believes he was told he it was ok for MRI, doesn't have card/info on him, to look for it Dispo: anticipate hospitalization > 2 more days seems to be improving, except now dealing with abdominal distention for unknown reason, no history
[2021-02-03] MEDS: MONTELUKAST 10 MG TAB PO SCH (09:41)
[2021-02-03] MEDS: AMIODARONE HCL 200 MG TAB PO SCH (09:41)
[2021-02-03] MEDS: DABIGATRAN 150 MG CAP PO SCH ×2 (09:41→20:58)
[2021-02-03] MEDS: ATORVASTATIN 20 MG TAB PO SCH (09:41)
[2021-02-03] MEDS: METOCLOPRAMIDE 5 MG TAB PO SCH ×3 (09:41→16:23)
[2021-02-03] MEDS: POTASSIUM 25 MEQ EFFERV TAB PO SCH ×2 (09:42→20:58)
[2021-02-03] MEDS: VANCOMYCIN 2 GM in NA CHLORIDE 0.9% 500 ML IVPB SCH (12:31)
[2021-02-03 12:36] LABS: Hematocrit 29.1 % (39.6-49.0); RBC Red Blood Cell Count 4.12 M/uL (4.33-5.43)
[2021-02-03 12:37] LABS: Absolute Lymphocytes (CBC) 0.9 K/uL (0.7-4.9); Basophils % 1.1 % (0-1.3); Lymphocytes % 2.7 % (15.3-44.8); MPV 8.7 fL (7.6-11.3)
[2021-02-03 13:18] LABS: ALT/SGPT 34 U/L (12-78); AST/SGOT 54 U/L (15-37); Albumin 1.6 g/dL (3.4-5.0); BUN Blood Urea Nitrogen 15 mg/dL (7-18); Bicarbonate 30 mmol/L (21-32); Bilirubin Total 1.1 mg/dL (0.2-1.0); Glucose Level 110 mg/dL (74-106); Magnesium 2.2 mg/dL (1.8-2.4); Potassium 3.7 mmol/L (3.5-5.1); Sodium Level 136 mmol/L (136-145)
[2021-02-03 13:34] LABS: Anisocytosis 1+; Blood Morphology Comment NOTED (NOT SEEN); Hypochromasia 1+; Platelet Estimate ADEQ
[2021-02-03 13:35] LABS: Target Cells 1+
[2021-02-03 13:36] LABS: Alkaline Phosphatase ND U/L (45-117)
[2021-02-03 15:23] LABS: RBC Red Blood Cell Count 3.96 M/uL (4.33-5.43)
[2021-02-03 16:03] LABS: Ferritin 166.1 ng/mL (26-388); Folic Acid, (Folate) 12.7 ng/mL (3.1-17.5)
--- NOTE | 2021-02-03 16:30 | P.PN ---
Subjective Date of Service: 02/03/21 Chief Complaint: Fatigue, right shoulder pain Subjective: No new changes (feeling slightly better, continues with low back pain, generalized weakness/fatigue, worse in RLE (hip/knee flexors/extensors) feels bloated but somewhat better, BM overnight) Review of Systems is unable to be obtained Physical Examination - Vital Signs Temperature: 98.6 F Blood Pressure: 121/76 Pulse: 96 Respirations: 22 Pulse Ox (%): 96 Assessment & Plan Physician Review Additional Text: Physical Exam General: Alert, AAOx3, NAD HEENT: normal conjunctiva, sclera anicteric Respiratory: mild crackles at base bilaterally, on 3L NC Cardiovascular: No edema, irregularly irregular rhythm, Normal S1 S2 Gastrointestinal: soft, distended, nontender, no rebound Musculoskeletal: No swelling, No erythema. 4/5 weakness at R hip flexion, 5/5 dorsal/plantar flexion. 4+/5 LLE, 5/5 b/l upper extremities Integumentary: L great toe (medial aspect) - superficial healed ulcer Problem List Sepsis secondary to MRSA bacteremia, unknown primary source Acute renal failure Lower back pain, LLE weakness h/o Cardiomyopathy Elevated troponin Elevated liver enzymes Chronic Afib h/o lymphoma MRSA bacteremia of unknown source. leukocytosis remains elevated; slight improvement today. pt clinically appears better, however abd distention persists CT thoracic and lumbar spine-no abscess. CT thoracic spine also demonstrated rounded opacity in the right upper lung. Round pneumonia not excluded. continue IV antibiotics. ID consulted -- unclear source as well. Blood cultures remained positive for MRSA - repeat blood cultures (02/02) still positive -Vancomycin subtherapeutic initially which could explain persistent bacteremia Echo obtained on 01/30 - no vegetation seen. Elevated troponin likely secondary to sepsis in the context of CHF. Elevated liver enzymes likely secondary to sepsis. Abd distention improved with NGT placement on 01/31; general surgery consulted for gastric distention. CTA chest, CT abdomen performed without acute findings - to r/o obstruction and to r/o PE. NGT removed. Pt now again with distention. ?gastroparesis. reglan started 02/02, gastric emptying study shows delayed gastric emptying started nystatin swish/swallow for erythematous / sore tongue on 01/31 Peripheral smear read as reactive. ID recommended Heme/Onc consut to r/o any heme pathology given h/o lymphoma. discussed with Dr. Ferguson - who reviewed imaging / labs, and feels this is very unlikely to be due to lymphoma/ cancer related. CRP elevated Procal improving back pain , left lower- extremity weakness - patient states this is new over the past week prior to admission. CT shows some foraminal stenosis could correlate with his weak hip flexion -consult neurology given these findings, unable to obtain MRI due to AICD -will check CT brain as well Dispo: anticipate hospitalization > 2 more days seems to be improving, except now dealing with abdominal distention for unknown reason, no history low back pain / LLE weakness, - foraminal stenosis may need SNF/rehab Time Spent Managing Pts Care (In Minutes): 35
--- NOTE | 2021-02-03 17:33 | RAD REPORT ---
EXAM DESCRIPTION: CT - Head Brain Wo Cont - 02/03/2021 5:17 pm CLINICAL HISTORY: RLE weakness Headache, drowsiness COMPARISON: No comparisons TECHNIQUE: All CT scans are performed using dose optimization technique as appropriate and may inclu de automated exposure control or mA/KV adjustment according to patient size. FINDINGS: No intracranial hemorrhage, hydrocephalus or extra-axial fluid collection.No areas of brai n edema or evidence of midline shift. The paranasal sinuses and mastoids are clear. The calvarium is intact. IMPRESSION: No acute intracranial abnormality.
--- NOTE | 2021-02-03 19:19 | CON ---
Date of Consultation: 02/03/2021 Additional Consulting Physician: Dr. Raj Son. Reason For Consultation: Persistent leukocytosis. History Of Present Illness: Mr. Rouse is an 80-year-old with multiple comorbidities who presented to the emergency room on 01/27/2021 with complaints of severe fatigue, chills and rigors, possible fever, and abdominal distention. Evaluation in the [place] [address] with left shift and 6% bands, hemoglobin was 10.3, platelet count was 222,000. His lactic acid was elevated as was the procalcitonin and he has been treated for septicemia with antibiotics. Though he has improved clinically, the leukocytosis has persisted, which is why I was consulted. 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 He denies any history of fever or night sweats prior to this illness. There is no history of significant weight loss prior to this illness. He denies any history of headache, dizziness, and diplopia. There is no complaint of lymph node enlargement. He denies any history of bleeding from the mouth, nose, gums, or rectum. He denies cough, chest pain, or shortness of breath prior to hospitalization, though he has been wheezing lately. He denies any history of paroxysmal nocturnal dyspnea, palpitations or syncope. He denies any abdominal pain, nausea, or vomiting. Though, he did notice lower abdominal pain prior to hospitalization, which has since resolved. Denies any history of diarrhea or rectal bleeding. Review of Systems: Otherwise unremarkable. Past Medical History/surgical History: Significant for: 1. Hypertension. 2. Congestive heart failure. 3. Atrial fibrillation. 4. Lymphoma. 5. Hyperlipidemia. Current Medications: As follows: Tylenol 500 mg p.o. q.4 hours p.r.n. for temperature more than 100 Fahrenheit, albuterol nebulizer q.6 hours scheduled, amiodarone 200 mg p.o. daily, Lipitor 50 mg p.o. q. daily, Pradaxa 150 mg p.o. b.i.d., Pepcid 20 mg IV daily, levothyroxine 0.05 mg p.o. daily, metoclopramide 10 mg p.o. q.a.c. and h.s., Singulair 10 mg p.o. daily. Morphine 2 mg IV q.4 hours p.r.n. for pain, Nystatin oral suspension 500,000 units p.o. t.i.d., vancomycin 2 g IV q.12 hours. Allergies: HE HAS NO KNOWN DRUG ALLERGIES. Social And Family History: Mr. Rouse lives with his . He is a never smoker. Denies history of alcohol or drug use. He has 4 children who are in generally good health. He is 1 of 6 siblings. One of his brothers from lung cancer in his 60s. Physical Examination: Vital Signs: Revealed that he has been afebrile for the past 48 hours or more. Temperature was 98.6 Fahrenheit at noon today, pulse 96, respirations 22 per minute, blood pressure was 121/76, saturation 96%. General: Reveals a pale, elderly gentleman who has a cough with wheezing. HEENT: Reveals no icterus. No oral mucositis or thrush. Vision is grossly intact. Neck: Reveals no palpable lymphadenopathy, mass, or JVD. Skin: Reveals no petechiae or purpura. No bleeding from IV sites. Lymph Node: Survey reveals no palpable lymphadenopathy in the neck, axilla, or groin. Chest: Reveals bilateral vesicular breath sounds with bilateral expiratory rhonchi. No bronchial breath sounds were heard. Heart: Sounds revealed an irregular heart rhythm with no gallops or murmurs. Abdomen: Obese and distended. Liver and spleen are not palpable. Bowel sounds were present. There is no tenderness or mass noted. Neurologic: Mr. Rouse is alert and oriented with no acute focal deficits. Extremities: Show evidence of 1 to 2+ edema around the ankles. No calf tenderness noted. Laboratory Data: [place] morning was [id number]; hemoglobin is 8.9, hematocrit 29.1, platelet count of 409,000. Chemistries reveal normal electrolytes. BUN was 15, creatinine was 0.54, glucose 110. Albumin is reduced at 1.6. C-reactive protein is elevated at 145. Total bilirubin was 1.1 with no significant liver enzyme elevation. His procalcitonin, which was 30.5 on admission, has been trending down. It was 1.1 this morning. Assessment And Plan: 1. Leukocytosis. In my opinion the leukocytosis is secondary to systemic infection. Review of smear and CT scans of the chest, abdomen, and pelvis showed no evidence of lymph node enlargement, hepatosplenomegaly, or other evidence of lymphoma. I discussed this with the patient, reassured him that there was no evidence of recurrence or new lymphoma. His leukocytosis should slowly resolve and white count should return to baseline in the coming 4-6 weeks. He may follow up with his PCP with a CBC in 4 weeks or he may contact our clinic for a followup in 4 weeks. 2. Anemia. His hemoglobin has steadily declined, likely due to what is now a chronic infection. We will check an iron profile to see if there is a component of iron deficiency as well, which could be treated. We would suggest to transfuse packed red blood cells if his hemoglobin is less than 7 g/dL given his history of congestive heart failure and heart disease. Thank you for asking us to see the patient. Please do not hesitate to call if you have any questions. IVETH/VALERIE Voice ID: [id number] Report ID: [id number] ALBERT
[2021-02-03] MEDS: GABAPENTIN 300 MG CAP PO SCH (20:58)
[2021-02-03] MEDS: ENSURE HIGH PROTEIN 237 ML CAN PO SCH (20:59)
[2021-02-04] MEDS: METOCLOPRAMIDE 5 MG TAB PO SCH ×4 (00:36→17:56)
[2021-02-04] MEDS: VANCOMYCIN 2 GM in NA CHLORIDE 0.9% 500 ML IVPB SCH ×2 (00:36→13:43)
[2021-02-04] MEDS: IPRATROPIUM BROM 0.5MG/2.5ML NEB SCH ×4 (02:20→19:45)
[2021-02-04] MEDS: ALBUTEROL 2.5 MG/3 ML NEB SOL NEB SCH ×4 (02:20→19:45)
[2021-02-04 06:11] LABS: Absolute Lymphocytes (CBC) 0.9 K/uL (0.7-4.9); Basophils % 0.3 % (0-1.3); Hematocrit 28.5 % (39.6-49.0); Lymphocytes % 2.9 % (15.3-44.8); MPV 8.5 fL (7.6-11.3); RBC Red Blood Cell Count 4.06 M/uL (4.33-5.43)
[2021-02-04 06:18] LABS: ALT/SGPT 32 U/L (12-78); AST/SGOT 54 U/L (15-37); Albumin 1.5 g/dL (3.4-5.0); Alkaline Phosphatase 99 U/L (45-117); BUN Blood Urea Nitrogen 13 mg/dL (7-18); Bicarbonate 29 mmol/L (21-32); Bilirubin Total 1.2 mg/dL (0.2-1.0); Glucose Level 113 mg/dL (74-106); Magnesium 2.3 mg/dL (1.8-2.4); Phosphorus 2.9 mg/dL (2.5-4.9); Potassium 3.6 mmol/L (3.5-5.1); Protein, Total 5.8 g/dL (6.4-8.2); Sodium Level 136 mmol/L (136-145)
[2021-02-04] MEDS: POTASSIUM 25 MEQ EFFERV TAB PO SCH ×2 (08:53→20:52)
[2021-02-04] MEDS: ATORVASTATIN 20 MG TAB PO SCH (08:53)
[2021-02-04] MEDS: ENSURE HIGH PROTEIN 237 ML CAN PO SCH ×2 (08:54→20:57)
[2021-02-04] MEDS: GABAPENTIN 300 MG CAP PO SCH ×2 (08:54→20:52)
[2021-02-04] MEDS: NYSTATIN 500,000 UNIT/5 ML UDC PO SCH ×3 (08:54→20:52)
[2021-02-04] MEDS: FAMOTIDINE 20 MG/2 ML VIAL IV SCH (08:54)
[2021-02-04] MEDS: MONTELUKAST 10 MG TAB PO SCH (08:55)
[2021-02-04] MEDS: AMIODARONE HCL 200 MG TAB PO SCH (09:00)
[2021-02-04] MEDS ORDERED: POTASSIUM CL SA 10 MEQ TAB PO ONE (09:00)
[2021-02-04] MEDS: LEVOTHYROXINE SOD 0.05 MG TABLET PO SCH (09:00)
--- NOTE | 2021-02-04 13:21 | P.PN ---
Subjective Date of Service: 02/04/21 Chief Complaint: Fatigue, right shoulder pain Subjective: Other (Reports breathing is okay, pain is the same, right lower extremity weakness is the same, abdomen feels softer, minimal appetite, slightly more groggy this morning after gabapentin. reports new R 2nd great toe area of dark discoloration, no pain) Review of Systems 10-point ROS is otherwise unremarkable Physical Examination - Vital Signs Temperature: 98.1 F Blood Pressure: 110/68 Pulse: 97 Respirations: 20 Pulse Ox (%): 95 Assessment & Plan Physician Review Additional Text: Physical Exam General: Alert, AAOx3, NAD HEENT: normal conjunctiva, sclera anicteric Respiratory: mild crackles at base bilaterally, on 3L NC Cardiovascular: trace edema, irregularly irregular rhythm, Normal S1 S2 Gastrointestinal: soft, distended, nontender, no rebound Musculoskeletal: 4/5 weakness at R hip flexion, 5/5 dorsal/plantar flexion. 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 suspect from recent L great toe infection CT thoracic spine did note a rounded opacity in the right upper lung CTA chest (01/31): b/l atelectasis, possible pneumonia Clinically has been improving the last 2-3 days, pro calcitonin significantly improved CRP and leukocytosis remain elevated Blood cultures remain positive - likely due to subtherapeutic vancomycin for several days Repeat blood cultures 02/04 Heme-Onc consulted given history lymphoma and persistent leukocytosis, reviewed labs and imaging, feels this is reactive to sepsis Echo obtained on 01/30 - no vegetation seen. Elevated troponin likely secondary to sepsis in the context of CHF. Elevated liver enzymes likely secondary to sepsis. started nystatin swish/swallow for erythematous / sore tongue on 01/31 will obtain x-ray of R toe back pain , left lower- extremity weakness - patient states this is new since 2- 3 days prior to admission. Family agree. 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 to begin with, can up titrate as needed for pain control -eventually, once the infection cleared will need to follow up with neurosurgery Delayed gastric emptying -unclear the reason, seems to be improving slowly, on Reglan -minimal appetite Dispo: anticipate hospitalization > 2 more days. will likely benefit from LTAC Time Spent Managing Pts Care (In Minutes): 35
--- NOTE | 2021-02-04 14:02 | RAD REPORT ---
EXAM DESCRIPTION: RAD - Foot Right 3 View - 02/04/2021 1:28 pm CLINICAL HISTORY: eval 2nd toe - infection vs hematoma, r/o osteo Pain swelling COMPARISON: No comparisons FINDINGS: The bones are demineralized mildly. Moderate soft tissue swelling is seen along the dorsum of the foot. There is no radiographic finding to indicate osteomyelitis. MRI the foot would be recom mended more sensitive evaluation for osteomyelitis is clinically needed.
--- NOTE | 2021-02-04 15:08 | RAD REPORT ---
EXAM DESCRIPTION: RAD - Abdomen 1 View (KUB) - 02/04/2021 2:52 pm CLINICAL HISTORY: Abdominal distention Pain COMPARISON: Abdomen 1 View (KUB) dated 02/02/2021; Abdomen 1 View (KUB) dated 01/31/2021; Abdomen 1 Vi ew (KUB) dated 01/31/2021 FINDINGS: Nonspecific distention of stomach, colon and several small bowel loops most likely indicat es adynamic ileus. The degree of the ileus is mildly improved. No significant bony findings. IMPRESSION: Mild improvement diffuse adynamic ileus.
--- NOTE | 2021-02-04 15:09 | RAD REPORT ---
EXAM DESCRIPTION: RAD - Chest Single View - 02/04/2021 2:32 pm CLINICAL HISTORY: Hypoxia Chest pain. COMPARISON: Abdomen 1 View (KUB) dated 02/04/2021; Chest Single View dated 02/02/2021; Abdomen 1 View (KUB) dated 02/02/2021; Abdomen 1 View (KUB) dated 01/31/2021 FINDINGS: Portable technique limits examination quality. Mild interstitial pulmonary edema. The heart is mildly enlarged with multilead pacer/defibrillator de vice. Left humeral prosthesis.Right-sided PICC line has tip in the SVC. IMPRESSION: Mild CHF.
[2021-02-04] MEDS: LACTOBACILLUS/ACIDOPHILUS TAB PO SCH ×2 (15:44→20:52)
[2021-02-05] MEDS: VANCOMYCIN 2 GM in NA CHLORIDE 0.9% 500 ML IVPB SCH ×2 (00:21→13:13)
[2021-02-05] MEDS: ALBUTEROL 2.5 MG/3 ML NEB SOL NEB SCH ×4 (02:10→19:25)
[2021-02-05] MEDS: IPRATROPIUM BROM 0.5MG/2.5ML NEB SCH ×4 (02:10→19:25)
[2021-02-05 04:44] LABS: Absolute Lymphocytes (CBC) 0.7 K/uL (0.7-4.9); Basophils % 0.2 % (0-1.3); Hematocrit 27.6 % (39.6-49.0); Lymphocytes % 2.4 % (15.3-44.8); RBC Red Blood Cell Count 3.89 M/uL (4.33-5.43)
[2021-02-05 05:32] LABS: ALT/SGPT 40 U/L (12-78); AST/SGOT 68 U/L (15-37); Albumin 1.5 g/dL (3.4-5.0); Alkaline Phosphatase 95 U/L (45-117); BUN Blood Urea Nitrogen 16 mg/dL (7-18); Bicarbonate 29 mmol/L (21-32); Glucose Level 135 mg/dL (74-106); Magnesium 2.4 mg/dL (1.8-2.4); Potassium 3.6 mmol/L (3.5-5.1); Protein, Total 5.7 g/dL (6.4-8.2); Sodium Level 137 mmol/L (136-145)
[2021-02-05] MEDS: METOCLOPRAMIDE 5 MG TAB PO SCH ×5 (06:04→23:50)
[2021-02-05] MEDS: AMIODARONE HCL 200 MG TAB PO SCH (08:58)
[2021-02-05] MEDS: GABAPENTIN 300 MG CAP PO SCH ×2 (08:58→20:19)
[2021-02-05] MEDS: ATORVASTATIN 20 MG TAB PO SCH (08:58)
[2021-02-05] MEDS: LACTOBACILLUS/ACIDOPHILUS TAB PO SCH ×3 (08:58→20:22)
[2021-02-05] MEDS: MONTELUKAST 10 MG TAB PO SCH (08:58)
[2021-02-05] MEDS: NYSTATIN 500,000 UNIT/5 ML UDC PO SCH ×3 (08:59→20:19)
[2021-02-05] MEDS: POTASSIUM 25 MEQ EFFERV TAB PO SCH ×2 (08:59→20:19)
[2021-02-05] MEDS: LEVOTHYROXINE SOD 0.05 MG TABLET PO SCH (09:00)
[2021-02-05] MEDS: FAMOTIDINE 20 MG/2 ML VIAL IV SCH (09:00)
[2021-02-05] MEDS ORDERED: POTASSIUM CL SA 10 MEQ TAB PO ONE (09:00)
[2021-02-05] MEDS: ENSURE HIGH PROTEIN 237 ML CAN PO SCH ×2 (09:00→20:22)
--- NOTE | 2021-02-05 13:04 | P.PN ---
Subjective Date of Service: 02/05/21 Chief Complaint: Fatigue, right shoulder pain Subjective: Improving (No acute events overnight. Patient reports feeling a little bit better today. Back pain slightly improved, right leg weakness of the same, breathing about the same. BM overnight) Review of Systems 10-point ROS is otherwise unremarkable Physical Examination - Vital Signs Temperature: 98.1 F Blood Pressure: 116/58 Pulse: 95 Respirations: 20 Pulse Ox (%): 93 Assessment & Plan Physician Review Additional Text: Physical Exam General: Alert, AAOx3 HEENT: normal conjunctiva, sclera anicteric Respiratory: mild wheeze on exam, on 2L NC, nonlabored CV: trace edema, irregularly irregular rhythm, Normal S1 S2 Abd: soft, distended, nontender, no rebound Ext: 4/5 weakness at R hip flexion, 5/5 dorsal/plantar flexion. 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 suspect from recent L great toe infection CT thoracic spine did note a rounded opacity in the right upper lung; CTA chest (01/31): b/l atelectasis, possible pneumonia Clinically has been improving slowly, pro calcitonin, CRP, and leukocytosis now improving Blood cultures remained positive - likely due to subtherapeutic vancomycin for several days Repeat blood cultures 02/04 pending Heme-Onc consulted given history lymphoma and persistent leukocytosis, reviewed labs and imaging, feels this is reactive to sepsis Echo obtained on 01/30 - no vegetation seen. Elevated troponin likely secondary to sepsis in the context of CHF. Elevated liver enzymes likely secondary to sepsis. started nystatin swish/swallow for erythematous / sore tongue on 01/31 back pain , left lower- extremity weakness - patient states this is new since 2- 3 days prior to admission. Family agree. 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 to begin with, can up titrate as needed for pain control -eventually, once the infection cleared will need to follow up with neurosurgery Delayed gastric emptying -unclear the reason, seems to be improving slowly, on Reglan -minimal appetite, able to drink 2-3 ensure bottles/day Dispo: anticipate hospitalization > 2 more days. will likely benefit from LTAC, will discuss further with family Time Spent Managing Pts Care (In Minutes): 35
[2021-02-05] MEDS: ACETAMINOPHEN 500 MG TAB PO PRN (16:27)
[2021-02-06] MEDS: VANCOMYCIN 2 GM in NA CHLORIDE 0.9% 500 ML IVPB SCH (00:51)
[2021-02-06] MEDS: ALBUTEROL 2.5 MG/3 ML NEB SOL NEB SCH ×4 (02:15→19:10)
[2021-02-06] MEDS: IPRATROPIUM BROM 0.5MG/2.5ML NEB SCH ×4 (02:15→19:10)
[2021-02-06] MEDS: ACETAMINOPHEN 500 MG TAB PO PRN ×2 (03:25→21:24)
[2021-02-06 05:12] LABS: Absolute Lymphocytes (CBC) 0.7 K/uL (0.7-4.9); Hematocrit 27.7 % (39.6-49.0); Lymphocytes % 2.7 % (15.3-44.8); MPV 8.3 fL (7.6-11.3)
[2021-02-06 05:31] LABS: ALT/SGPT 46 U/L (12-78); AST/SGOT 74 U/L (15-37); Albumin 1.5 g/dL (3.4-5.0); Alkaline Phosphatase 93 U/L (45-117); BUN Blood Urea Nitrogen 15 mg/dL (7-18); Bicarbonate 28 mmol/L (21-32); Bilirubin Total 0.9 mg/dL (0.2-1.0); Glucose Level 118 mg/dL (74-106); Magnesium 2.3 mg/dL (1.8-2.4); Potassium 3.9 mmol/L (3.5-5.1); Protein, Total 5.8 g/dL (6.4-8.2); Sodium Level 136 mmol/L (136-145)
[2021-02-06] MEDS: METOCLOPRAMIDE 5 MG TAB PO SCH ×3 (05:45→16:59)
--- NOTE | 2021-02-06 09:40 | P.PN ---
Subjective Date of Service: 02/06/21 Chief Complaint: Fatigue, right shoulder pain Patient feels better, tolerating 3 ensure cans per day, continues to have decreased appetitis, continues to have bowel function. Physical Examination - Vital Signs Temperature: 99.9 F Blood Pressure: 131/70 Pulse: 114 Respirations: 19 Pulse Ox (%): 95 - Physical Exam General: Alert, In no apparent distress, Cooperative HEENT: Mucous membr. moist/pink Gastrointestinal: Soft and benign, No ascites, No tenderness, No masses, No rebound, No guarding, Other (minimal tympani to epigastrium) Other Physical/Emotional Findings: General: Alert, In no apparent distress. HEENT: Atraumatic, Normocephalic, PERRLA. Neck: Supple, 2+ carotid pulse no bruit, JVD not distended. Respiratory: Expiratory wheezes, Rhonchi/gurgles (More prominent on the the left lower lobe), Other. Cardiovascular: No edema, Normal pulses, Regular rate/rhythm. Capillary refill: <2 Seconds. Gastrointestinal: Other (Dull to percussion), Distended. Musculoskeletal: No clubbing, No swelling, No contractures. Integumentary: Wound to the lateral plantar aspect of the right great toe. Wound has no active drainage or bleeding. Purulent tissue is clean and dry. Urinary: Other (No Huffman). External genitalia: Deferred Assessment And Plan - Current Problems (Diagnosis) (1) MRSA bacteremia Current Visit: Yes Status: Acute Plan: \ - continue medical workup - serial abdominal exams - ensure per dietary recommendations, NPO after midnight - antibiotics, fever workup to continue - gastric emptying study shows gastroparesis, continue reglan - Will perform EGD tomorrow - I have discussed the benefits, risks, alternatives of EGD including but not limited to bleeding, infection, damage to internal organs, intestinal perforation, need for more surgery Physician Review Additional Text: Physical Exam General: Alert, AAOx3 HEENT: normal conjunctiva, sclera anicteric Respiratory: mild wheeze on exam, on 2L NC, nonlabored CV: trace edema, irregularly irregular rhythm, Normal S1 S2 Abd: soft, distended, nontender, no rebound Ext: 4/5 weakness at R hip flexion, 5/5 dorsal/plantar flexion. 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 suspect from recent L great toe infection CT thoracic spine did note a rounded opacity in the right upper lung; CTA chest (01/31): b/l atelectasis, possible pneumonia Clinically has been improving slowly, pro calcitonin, CRP, and leukocytosis now improving Blood cultures remained positive - likely due to subtherapeutic vancomycin for several days Repeat blood cultures 02/04 pending Heme-Onc consulted given history lymphoma and persistent leukocytosis, reviewed labs and imaging, feels this is reactive to sepsis Echo obtained on 01/30 - no vegetation seen. Elevated troponin likely secondary to sepsis in the context of CHF. Elevated liver enzymes likely secondary to sepsis. started nystatin swish/swallow for erythematous / sore tongue on 01/31 back pain , left lower- extremity weakness - patient states this is new since 2- 3 days prior to admission. Family agree. 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 to begin with, can up titrate as needed for pain control -eventually, once the infection cleared will need to follow up with neurosurgery Delayed gastric emptying -unclear the reason, seems to be improving slowly, on Reglan -minimal appetite, able to drink 2-3 ensure bottles/day Dispo: anticipate hospitalization > 2 more days. will likely benefit from LTAC, will discuss further with family
--- NOTE | 2021-02-06 10:29 | RAD REPORT ---
EXAM DESCRIPTION: CT - Foot Left Wo Con - 02/06/2021 10:03 am CLINICAL HISTORY: WOUND/SEPSIS Pain and swelling COMPARISON: Foot Right 3 View dated 02/04/2021; Chest Single View dated 02/04/2021; Abdomen 1 View ([facility]) dated 02/04/2021 FINDINGS: Soft tissue thickening and skin thickening is seen adjacent to the fifth metatarsal head a nd the base of the proximal phalanx of the fifth toe. Thickened in the soft tissues measures up to 9 mm. No pathologic fluid collections. The underlying bone of the distal head and neck region of the fi fth metatarsal is demineralized and thin suggesting osteomyelitis. This may also involve the base of the proximal phalanx of the fifth toe. Small soft tissue ulceration is seen along the plantar aspect of the great toe. No underlying evidenc e of osteomyelitis. No acute fracture or dislocation seen. No pathologic fluid collection, soft tissue mass or hematoma. Moderate plantar calcaneal spur. IMPRESSION: Osteomyelitis is suspected involving the fifth metatarsal head/ neck region as well as t he base of the proximal phalanx of the fifth toe. All CT scans are performed using dose optimization technique as appropriate and may include automated exposure control or mA/KV adjustment according to patient size.
--- NOTE | 2021-02-06 10:35 | RAD REPORT ---
EXAM DESCRIPTION: CT - Foot Right Wo Con - 02/06/2021 10:03 am CLINICAL HISTORY: WOUND/SEPSIS Pain and swelling. COMPARISON: Foot Right 3 View dated 02/04/2021 FINDINGS: Prominent erosive changes are present involving the tarsal - metatarsal articulations, gre atest involving the first articulation. Mild swelling is seen surrounding these joints. Lateral soft tissues of the forefoot appears thickened. Subtle demineralization of the fifth metacarp al head. No acute fracture or subluxation. Small calcaneal spurs are present. No soft tissue mass or hematoma. No pathologic fluid collection. IMPRESSION: No definitive abnormality seen to indicate osteomyelitis. Subtle demineralization of the fifth metacarpal head could be very early stages of developing infection/ osteomyelitis. All CT scans are performed using dose optimization technique as appropriate and may include automated exposure control or mA/KV adjustment according to patient size.
[2021-02-06] MEDS: POTASSIUM 25 MEQ EFFERV TAB PO SCH ×2 (10:45→21:03)
[2021-02-06] MEDS: NYSTATIN 500,000 UNIT/5 ML UDC PO SCH ×3 (10:45→21:12)
[2021-02-06] MEDS: GABAPENTIN 300 MG CAP PO SCH ×2 (10:46→21:03)
[2021-02-06] MEDS: AMIODARONE HCL 200 MG TAB PO SCH (10:46)
[2021-02-06] MEDS: ATORVASTATIN 20 MG TAB PO SCH (10:46)
[2021-02-06] MEDS: MONTELUKAST 10 MG TAB PO SCH (10:46)
[2021-02-06] MEDS: LACTOBACILLUS/ACIDOPHILUS TAB PO SCH ×3 (10:46→21:03)
[2021-02-06] MEDS: ENSURE HIGH PROTEIN 237 ML CAN PO SCH ×2 (10:47→21:03)
[2021-02-06] MEDS: LEVOTHYROXINE SOD 0.05 MG TABLET PO SCH (10:47)
[2021-02-06] MEDS: FAMOTIDINE 20 MG/2 ML VIAL IV SCH (10:50)
--- NOTE | 2021-02-06 12:43 | P.PN ---
Subjective Date of Service: 02/06/21 Chief Complaint: Fatigue, right shoulder pain Patient seen examined at bedside. Still complaining of some shortness of breath. Blood cultures still remain positive the patient is now on therapeutic dose of vancomycin. Would Dc vancomycin at this time and start daptomycin and cefepime. Patient is on atorvastatin atorvastatin have been stopped for duration of daptomycin treatment and CK and BMP labs ordered daily. Will continue to monitor renal function closely. Review of Systems 10-point ROS is otherwise unremarkable Physical Examination - Vital Signs Temperature: 99.3 F Blood Pressure: 141/64 Pulse: 113 Respirations: 18 Pulse Ox (%): 94 - Studies Microbiology 01/27/21 14:30 Blood - Blood Aerobic Blood Culture - Final Meth Resistant Staph Aureus 01/27/21 14:30 Blood - Blood Blood Culture Gram Stain - Final 01/27/21 14:30 Blood - Blood Anaerobic Blood Culture - Final Meth Resistant Staph Aureus 01/27/21 14:30 Blood - Blood Gram Stain - Final 01/27/21 14:23 Blood - Blood Aerobic Blood Culture - Final Meth Resistant Staph Aureus 01/27/21 14:23 Blood - Blood Blood Culture Gram Stain - Final 01/27/21 14:23 Blood - Blood Anaerobic Blood Culture - Final Meth Resistant Staph Aureus 01/27/21 14:23 Blood - Blood Gram Stain - Final Assessment And Plan - Plan Physical Exam: General: Alert, In no apparent distress HEENT: Atraumatic, Normocephalic, PERRLA Neck: Supple, 2+ carotid pulse no bruit, JVD not distended Respiratory: clear to auscultation Cardiovascular: No edema, Normal pulses, Regular rate/rhythm Capillary refill: <2 Seconds Gastrointestinal:normal findings Musculoskeletal: No clubbing, No swelling, No contractures Integumentary: Wound to the lateral plantar aspect of the right great toe. Wound has no active drainage or bleeding. Purulent tissue is clean and dry. Urinary: Other (No Huffman) Antibiotics: Daptomycin: start: 02/06 stop: -- Cefepime start: 02/06 stop: 02/20 Assessment: -sepsis of unknown origin -congestive heart failure status post AICD placements -history of throat cancer -hypothyroidism -anemia Plan: -continue antibiotics- ankle has been discontinued and patient has been started on daptomycin and cefepime. Atorvastatin has been told for duration of MAC treatment, will continue monitor renal function closely. CK levels ordered daily. Possible source of infection could be the wound due to patient's right great hallux. X-ray has ruled out osteomyelitis however the patient's could still become septic from this wound. Will continue to monitor closely. All other tests have been negative including shoulder x-ray, chest/abdomen/pelvis CT. Patient did have a KUB which showed gastric distention, NG tube has been placed. Awaiting echo results. At this time source of infection is most likely attributed to the patient's wound in his right great toe. Wound care orders placed: Pain with Betadine wrap with kerlix. -medical management per primary team -continue monitor for signs of infection -continue monitor CBC and BMP -DC likely to LTAC. Plan of care discussed with Dr. Spicer Thank you for consultation
[2021-02-06] MEDS: CEFEPIME/SWI 1gm 10 ML IV SCH ×2 (13:51→21:02)
[2021-02-06 14:27] LABS: BUN Blood Urea Nitrogen 16 mg/dL (7-18); Bicarbonate 27 mmol/L (21-32); Glucose Level 115 mg/dL (74-106); Sodium Level 137 mmol/L (136-145)
--- NOTE | 2021-02-06 16:44 | P.PN ---
Subjective Date of Service: 02/06/21 Chief Complaint: Fatigue, right shoulder pain Subjective: Improving (slowly improving daily, leukocytosis down trending, patient's p.o. intake improving, passing flatus. Pain slightly improved, continues with right lower extremity weakness) Review of Systems 10-point ROS is otherwise unremarkable Physical Examination - Vital Signs Temperature: 98.4 F Blood Pressure: 123/65 Pulse: 105 Respirations: 20 Pulse Ox (%): 93 - Physical Exam Other Physical/Emotional Findings: General: Alert, In no apparent distress. HEENT: Atraumatic, Normocephalic, PERRLA. Neck: Supple, 2+ carotid pulse no bruit, JVD not distended. Respiratory: Expiratory wheezes, Rhonchi/gurgles (More prominent on the the left lower lobe), Other. Cardiovascular: No edema, Normal pulses, Regular rate/rhythm. Capillary refill: <2 Seconds. Gastrointestinal: Other (Dull to percussion), Distended. Musculoskeletal: No clubbing, No swelling, No contractures. Integumentary: Wound to the lateral plantar aspect of the right great toe. Wound has no active drainage or bleeding. Purulent tissue is clean and dry. Urinary: Other (No Huffman). External genitalia: Deferred Assessment & Plan Physician Review Additional Text: Physical Exam General: Alert, AAOx3 HEENT: normal conjunctiva, sclera anicteric Respiratory: mild wheeze on exam, on 2L NC, nonlabored CV: 1+ b/l edema, irregularly irregular rhythm, Normal S1 S2 Abd: soft, distended, nontender, no rebound Ext: 4/5 weakness at R hip flexion, 5/5 dorsal/plantar flexion. 4+/5 LLE, 5/5 b/l upper extremities L great toe (medial aspect) - superficial healed ulcer, dressing applied R 2nd toe - dark / reddish-black discoloration under nail, thick callus on tip of toe - patient without sensation of b/l feet Problem List Sepsis secondary to MRSA bacteremia, unknown primary source - likely L toe / ?osteomyelitis Acute renal failure Lower back pain, LLE weakness due to Advanced lumbar degenerative changes with prominent foraminal stenosis on the right at L3-4 Delayed gastric emptying h/o Cardiomyopathy Elevated troponin Elevated liver enzymes Chronic Afib h/o lymphoma MRSA bacteremia of unknown source. suspect from recent L great toe infection CT thoracic spine did note a rounded opacity in the right upper lung; CTA chest (01/31): b/l atelectasis, possible pneumonia Clinically has been improving slowly, pro calcitonin, CRP, and leukocytosis now improving Blood cultures remained positive - likely due to subtherapeutic vancomycin for several days Repeat blood cultures 02/04 positive again - will repeat cultures today, patient improving, ~48hrs since therapeutic Heme-Onc consulted given history lymphoma and persistent leukocytosis, reviewed labs and imaging, feels this is reactive to sepsis Echo obtained on 01/30 - no vegetation seen. Elevated troponin likely secondary to sepsis in the context of CHF. Elevated liver enzymes likely secondary to sepsis. started nystatin swish/swallow for erythematous / sore tongue on 01/31 Cardio consulted for eval of defibrillator / input on echo if appears infected will obtain CT b/l feet to further evaluate toes, unfortunately patient cannot have an MRI due to defibrillator back pain , left lower- extremity weakness - patient states this is new since 2- 3 days prior to admission. Family agree. 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 to begin with, can up titrate as needed for pain control -eventually, once the infection cleared will need to follow up with neurosurgery Delayed gastric emptying -unclear the reason, seems to be improving slowly, on Reglan -appetite slowly improving, abdomen softer, able to drink 2-3 ensure bottles/day Dispo: anticipate hospitalization > 2 more days. will likely benefit from LTAC may need to transfer to tertiary care center if remains positive / no source - to have AURE to further eval defibrillator / remove if positive Time Spent Managing Pts Care (In Minutes): 35
[2021-02-06] MEDS: DAPTOmycin 600 MG in NA CHLORIDE 0.9% 100 ML IVPB SCH (16:59)
[2021-02-06] MEDS ORDERED: CEFEPIME 1 GM/VIAL IV SCH (21:00)
[2021-02-07] MEDS: METOCLOPRAMIDE 5 MG TAB PO SCH ×4 (01:15→16:24)
[2021-02-07] MEDS: ACETAMINOPHEN 325 MG TABLET PO PRN ×2 (01:33→20:59)
[2021-02-07] MEDS: IPRATROPIUM BROM 0.5MG/2.5ML NEB SCH ×4 (02:50→19:20)
[2021-02-07] MEDS: ALBUTEROL 2.5 MG/3 ML NEB SOL NEB SCH ×4 (02:50→19:20)
[2021-02-07] MEDS: LEVOTHYROXINE SOD 0.05 MG TABLET PO SCH (09:00)
--- NOTE | 2021-02-07 09:23 | PN ---
Subjective: The patient has been followed for atrial fibrillation, has the defibrillator. He has se psis from MRSA, probably from osteomyelitis, myopathy, chronic atrial fibrillation, increased troponi n. Echocardiogram showed no vegetation. There is question about on the echocardiogram __ . His transesophageal echo does not show any issue. I would still suggest long-term antibio tics. He has an ejection fraction of 46%. I will discuss the case further with primary care, admitt [facility] physician, and see transesophageal echocardiogram would be indicated, I think it is reasonable to do so as an outpatient or certainly have it done in [place] sometime. CESAR/VALERIE Voice ID: [id number] Report ID: [id number]
[2021-02-07] MEDS: LACTOBACILLUS/ACIDOPHILUS TAB PO SCH ×3 (09:31→20:46)
[2021-02-07] MEDS: NYSTATIN 500,000 UNIT/5 ML UDC PO SCH ×3 (09:31→20:46)
[2021-02-07] MEDS: FAMOTIDINE 20 MG/2 ML VIAL IV SCH (09:31)
[2021-02-07] MEDS: POTASSIUM 25 MEQ EFFERV TAB PO SCH ×2 (09:31→20:45)
[2021-02-07] MEDS: AMIODARONE HCL 200 MG TAB PO SCH (09:32)
[2021-02-07] MEDS: GABAPENTIN 300 MG CAP PO SCH ×2 (09:32→20:46)
[2021-02-07] MEDS: MONTELUKAST 10 MG TAB PO SCH (09:32)
[2021-02-07] MEDS: CEFEPIME/SWI 1gm 10 ML IV SCH ×2 (09:33→20:45)
[2021-02-07] MEDS: ENSURE HIGH PROTEIN 237 ML CAN PO SCH ×2 (09:34→20:46)
[2021-02-07 09:55] LABS: Absolute Lymphocytes (CBC) 0.7 K/uL (0.7-4.9); Basophils % 0.4 % (0-1.3); Hematocrit 27.5 % (39.6-49.0); Lymphocytes % 3.2 % (15.3-44.8); RBC Red Blood Cell Count 3.86 M/uL (4.33-5.43)
--- NOTE | 2021-02-07 10:51 | P.PN ---
Subjective Date of Service: 02/07/21 Chief Complaint: Fatigue, right shoulder pain Patient seen examined at bedside. Per nurse and chart review patient was slightly febrile over the night with a T-max of 100.5. All of yesterday patient maintained a low-grade fever. Today the patient is afebrile to T-max of 98.1. Continue to monitor closely. Continue daptomycin and cefepime. Blood cultures taken on 02/06 pending,left great toe wound cultures pending. Per nurse the overnight nurse was able to express pus from the wound bed during dressing change as such sent it off for culture. During my physical exam was unable to express any pus from the wound bed and saw no active drainage or pus production. Will awit results of wound culture. Review of Systems 10-point ROS is otherwise unremarkable Physical Examination - Vital Signs Temperature: 96.8 F Blood Pressure: 115/75 Pulse: 110 Respirations: 19 Pulse Ox (%): 96 - Studies Microbiology 01/27/21 14:30 Blood - Blood Aerobic Blood Culture - Final Meth Resistant Staph Aureus 01/27/21 14:30 Blood - Blood Blood Culture Gram Stain - Final 01/27/21 14:30 Blood - Blood Anaerobic Blood Culture - Final Meth Resistant Staph Aureus 01/27/21 14:30 Blood - Blood Gram Stain - Final 01/27/21 14:23 Blood - Blood Aerobic Blood Culture - Final Meth Resistant Staph Aureus 01/27/21 14:23 Blood - Blood Blood Culture Gram Stain - Final 01/27/21 14:23 Blood - Blood Anaerobic Blood Culture - Final Meth Resistant Staph Aureus 01/27/21 14:23 Blood - Blood Gram Stain - Final Assessment And Plan - Plan Physical Exam: General: Alert, In no apparent distress HEENT: Atraumatic, Normocephalic, PERRLA Neck: Supple, 2+ carotid pulse no bruit, JVD not distended Respiratory: clear to auscultation Cardiovascular: No edema, Normal pulses, Regular rate/rhythm Capillary refill: <2 Seconds Gastrointestinal:normal findings Musculoskeletal: No clubbing, No swelling, No contractures Integumentary: Wound to the lateral plantar aspect of the right great toe- callus. Wound has no active drainage or bleeding. wound to second toe on right foot under nail bed-appears to be coagulated blood. Wound on medial aspect of right foot-skin abrasion. Wound to sacral area: superficial skin tear likely from sheer force. Urinary: Other (No Huffman) Antibiotics: Daptomycin: start: 02/06 stop: -- Cefepime start: 02/06 stop: 02/20 Assessment: -sepsis of unknown origin -congestive heart failure status post AICD placements -history of throat cancer -hypothyroidism -anemia Plan: -continue antibiotics- vanco has been discontinued and patient has been started on daptomycin and cefepime. Atorvastatin has been held for duration of dapto treatment, will continue monitor renal function closely. CK levels ordered daily. Possible source of infection could be the wound on the patient's right great hallux-awiaing wound culture results. X-ray/CT has ruled out osteomyelitis however the patient's could still become septic from this wound. Will continue to monitor closely. All other tests have been negative including shoulder x-ray, chest/abdomen/pelvis CT. Patient did have a KUB which showed gastric distention, NG tube has been placed. AURE results negative--may need TTE. At this time source of infection is most likely attributed to the patient's wound in his right great toe. Wound care orders placed: Pain with Betadine wrap with kerlix. -repeat blood cultures on 02/06--pending -medical management per primary team -continue monitor for signs of infection -continue monitor CBC and BMP -DC likely to LTAC. Plan of care discussed with Dr. Spicer Thank you for consultation
--- NOTE | 2021-02-07 14:13 | P.PN ---
Subjective Date of Service: 02/07/21 Chief Complaint: Fatigue, right shoulder pain No major changes from yesterday. Patient complaining of generalized weakness. Serial blood cultures still positive for gram positive cocci. Physical Examination - Vital Signs Temperature: 97.2 F Blood Pressure: 124/63 Pulse: 106 Respirations: 19 Pulse Ox (%): 95 - Physical Exam General: Alert, In no apparent distress HEENT: Mucous membr. moist/pink Neck: Supple Respiratory: Clear to auscultation bilaterally, Normal air movement Cardiovascular: Regular rate/rhythm, Normal S1 S2, No murmurs, Edema (Bilateral lower lower extremities) Gastrointestinal: Normal bowel sounds, Soft and benign, Non-distended Musculoskeletal: No contractures Integumentary: Other (Left great toe wound dressed) Neurological: Other (Globally weak) Other Physical/Emotional Findings: General: Alert, In no apparent distress. HEENT: Atraumatic, Normocephalic, PERRLA. Neck: Supple, 2+ carotid pulse no bruit, JVD not distended. Respiratory: Expiratory wheezes, Rhonchi/gurgles (More prominent on the the left lower lobe), Other. Cardiovascular: No edema, Normal pulses, Regular rate/rhythm. Capillary refill: <2 Seconds. Gastrointestinal: Other (Dull to percussion), Distended. Musculoskeletal: No clubbing, No swelling, No contractures. Integumentary: Wound to the lateral plantar aspect of the right great toe. Wound has no active drainage or bleeding. Purulent tissue is clean and dry. Urinary: Other (No Huffman). External genitalia: Deferred Assessment And Plan - Current Problems (Diagnosis) (1) Sepsis Current Visit: Yes Status: Acute (2) Acute renal failure Current Visit: Yes Status: Acute (3) Cardiomyopathy Current Visit: Yes Status: Acute (4) Elevated troponin Current Visit: Yes Status: Acute (5) Elevated liver enzymes Current Visit: Yes Status: Acute (6) MRSA bacteremia Current Visit: Yes Status: Acute Physician Review Additional Text: Physical Exam General: Alert, AAOx3 HEENT: normal conjunctiva, sclera anicteric Respiratory: mild wheeze on exam, on 2L NC, nonlabored CV: 1+ b/l edema, irregularly irregular rhythm, Normal S1 S2 Abd: soft, distended, nontender, no rebound Ext: 4/5 weakness at R hip flexion, 5/5 dorsal/plantar flexion. 4+/5 LLE, 5/5 b/l upper extremities L great toe (medial aspect) - superficial healed ulcer, dressing applied R 2nd toe - dark / reddish-black discoloration under nail, thick callus on tip of toe - patient without sensation of b/l feet Problem List Sepsis secondary to MRSA bacteremia, unknown primary source Osteomyelitis of toe Acute renal failure Lower back pain, LLE weakness due to Advanced lumbar degenerative changes with prominent foraminal stenosis on the right at L3-4 Delayed gastric emptying h/o Cardiomyopathy Elevated troponin Elevated liver enzymes Chronic Afib h/o lymphoma MRSA bacteremia of unknown source. suspect from recent L great toe infection. Endocarditis not ruled out CT thoracic spine did note a rounded opacity in the right upper lung; CTA chest (01/31): b/l atelectasis, possible pneumonia Leukocytosis now improving slowly but still high. Blood cultures remained positive. There is concern for endocarditis Most recent blood cultures to positive. Heme-Onc consulted given history lymphoma and persistent leukocytosis, reviewed labs and imaging, feels this is reactive to sepsis Echo obtained on 01/30 - no vegetation seen. Elevated troponin likely secondary to sepsis in the context of CHF. Elevated liver enzymes likely secondary to sepsis. started nystatin swish/swallow for erythematous / sore tongue on 01/31 Cardio consulted for eval of defibrillator / input on echo if appears infected Concern for osteomyelitis of the left 1st metatarsal head and proximal phalanx. back pain , left lower- extremity weakness - patient states this is new since 2- 3 days prior to admission. Family agree. 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 and titrate as needed for pain control -eventually, once the infection cleared will need to follow up with neurosurgery Delayed gastric emptying -unclear the reason, seems to be improving slowly, on Reglan -Dr. Allen input appreciated. -appetite slowly improving, able to drink 2-3 ensure bottles/day . Dispo: Recommending transfer to a tertiary hospital for AURE to rule out endocarditis.
[2021-02-07] MEDS: DAPTOmycin 600 MG in NA CHLORIDE 0.9% 100 ML IVPB SCH (15:33)
[2021-02-08] MEDS: METOCLOPRAMIDE 5 MG TAB PO SCH ×4 (00:22→16:21)
[2021-02-08] MEDS: ALBUTEROL 2.5 MG/3 ML NEB SOL NEB SCH ×4 (03:25→19:45)
[2021-02-08] MEDS: IPRATROPIUM BROM 0.5MG/2.5ML NEB SCH ×4 (03:25→19:45)
[2021-02-08 05:47] LABS: Basophils % 0.1 % (0-1.3); Hematocrit 26.8 % (39.6-49.0); Lymphocytes % 5.3 % (15.3-44.8); RBC Red Blood Cell Count 3.77 M/uL (4.33-5.43)
[2021-02-08 05:53] LABS: BUN Blood Urea Nitrogen 15 mg/dL (7-18); Bicarbonate 28 mmol/L (21-32); Glucose Level 106 mg/dL (74-106); Potassium 3.9 mmol/L (3.5-5.1); Sodium Level 138 mmol/L (136-145)
[2021-02-08] MEDS: LEVOTHYROXINE SOD 0.05 MG TABLET PO SCH (09:00)
[2021-02-08] MEDS: MONTELUKAST 10 MG TAB PO SCH (09:13)
[2021-02-08] MEDS: FAMOTIDINE 20 MG/2 ML VIAL IV SCH (09:13)
[2021-02-08] MEDS: CEFEPIME/SWI 1gm 10 ML IV SCH ×2 (09:13→20:16)
[2021-02-08] MEDS: LACTOBACILLUS/ACIDOPHILUS TAB PO SCH ×3 (09:14→20:19)
[2021-02-08] MEDS: POTASSIUM 25 MEQ EFFERV TAB PO SCH ×2 (09:14→20:15)
[2021-02-08] MEDS: GABAPENTIN 300 MG CAP PO SCH ×2 (09:14→20:19)
[2021-02-08] MEDS: ENSURE HIGH PROTEIN 237 ML CAN PO SCH ×2 (09:14→20:14)
[2021-02-08] MEDS: AMIODARONE HCL 200 MG TAB PO SCH (09:14)
[2021-02-08] MEDS: NYSTATIN 500,000 UNIT/5 ML UDC PO SCH ×3 (09:14→20:21)
--- NOTE | 2021-02-08 13:16 | P.PN ---
Subjective Date of Service: 02/07/21 Chief Complaint: Fatigue, right shoulder pain Patient feels better, tolerating 3 ensure cans per day, continues to have decreased appetitis, continues to have bowel function. Physical Examination - Vital Signs Temperature: 97.2 F Blood Pressure: 130/71 Pulse: 113 Respirations: 22 Pulse Ox (%): 96 - Physical Exam General: Alert, In no apparent distress, Cooperative Respiratory: Normal air movement Cardiovascular: Regular rate/rhythm Gastrointestinal: Soft and benign, Non-distended, No ascites, No tenderness, No masses, No rebound, No guarding Other Physical/Emotional Findings: General: Alert, In no apparent distress. HEENT: Atraumatic, Normocephalic, PERRLA. Neck: Supple, 2+ carotid pulse no bruit, JVD not distended. Respiratory: Expiratory wheezes, Rhonchi/gurgles (More prominent on the the left lower lobe), Other. Cardiovascular: No edema, Normal pulses, Regular rate/rhythm. Capillary refill: <2 Seconds. Gastrointestinal: Other (Dull to percussion), Distended. Musculoskeletal: No clubbing, No swelling, No contractures. Integumentary: Wound to the lateral plantar aspect of the right great toe. Wound has no active drainage or bleeding. Purulent tissue is clean and dry. Urinary: Other (No Huffman). External genitalia: Deferred Assessment And Plan - Current Problems (Diagnosis) (1) MRSA bacteremia Current Visit: Yes Status: Acute Plan: \ - continue medical workup - serial abdominal exams - ensure per dietary recommendations, - antibiotics, fever workup to continue - gastric emptying study shows gastroparesis, continue reglan - Will perform EGD as outpatient unless patient decompensates Physician Review Additional Text: Physical Exam General: Alert, AAOx3 HEENT: normal conjunctiva, sclera anicteric Respiratory: mild wheeze on exam, on 2L NC, nonlabored CV: 1+ b/l edema, irregularly irregular rhythm, Normal S1 S2 Abd: soft, distended, nontender, no rebound Ext: 4/5 weakness at R hip flexion, 5/5 dorsal/plantar flexion. 4+/5 LLE, 5/5 b/l upper extremities L great toe (medial aspect) - superficial healed ulcer, dressing applied R 2nd toe - dark / reddish-black discoloration under nail, thick callus on tip of toe - patient without sensation of b/l feet Problem List Sepsis secondary to MRSA bacteremia, unknown primary source Osteomyelitis of toe Acute renal failure Lower back pain, LLE weakness due to Advanced lumbar degenerative changes with prominent foraminal stenosis on the right at L3-4 Delayed gastric emptying h/o Cardiomyopathy Elevated troponin Elevated liver enzymes Chronic Afib h/o lymphoma MRSA bacteremia of unknown source. suspect from recent L great toe infection. Endocarditis not ruled out CT thoracic spine did note a rounded opacity in the right upper lung; CTA chest (01/31): b/l atelectasis, possible pneumonia Leukocytosis now improving slowly but still high. Blood cultures remained positive. There is concern for endocarditis Most recent blood cultures to positive. Heme-Onc consulted given history lymphoma and persistent leukocytosis, reviewed labs and imaging, feels this is reactive to sepsis Echo obtained on 01/30 - no vegetation seen. Elevated troponin likely secondary to sepsis in the context of CHF. Elevated liver enzymes likely secondary to sepsis. started nystatin swish/swallow for erythematous / sore tongue on 01/31 Cardio consulted for eval of defibrillator / input on echo if appears infected Concern for osteomyelitis of the left 1st metatarsal head and proximal phalanx. back pain , left lower- extremity weakness - patient states this is new since 2- 3 days prior to admission. Family agree. 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 and titrate as needed for pain control -eventually, once the infection cleared will need to follow up with neurosurgery Delayed gastric emptying -unclear the reason, seems to be improving slowly, on Reglan -Dr. Allen input appreciated. -appetite slowly improving, able to drink 2-3 ensure bottles/day . Dispo: Recommending transfer to a tertiary hospital for AURE to rule out endocarditis.
--- NOTE | 2021-02-08 13:17 | P.PN ---
Subjective Date of Service: 02/08/21 Chief Complaint: Fatigue, right shoulder pain Patient feels better, tolerating 3 ensure cans per day, continues to have decreased appetitis, continues to have bowel function. Physical Examination - Vital Signs Temperature: 97.2 F Blood Pressure: 130/71 Pulse: 113 Respirations: 22 Pulse Ox (%): 96 - Physical Exam General: Alert, In no apparent distress, Cooperative Respiratory: Clear to auscultation bilaterally, Normal air movement Cardiovascular: Regular rate/rhythm Gastrointestinal: Soft and benign, No ascites, No tenderness, No masses, No rebound, No guarding Other Physical/Emotional Findings: General: Alert, In no apparent distress. HEENT: Atraumatic, Normocephalic, PERRLA. Neck: Supple, 2+ carotid pulse no bruit, JVD not distended. Respiratory: Expiratory wheezes, Rhonchi/gurgles (More prominent on the the left lower lobe), Other. Cardiovascular: No edema, Normal pulses, Regular rate/rhythm. Capillary refill: <2 Seconds. Gastrointestinal: Other (Dull to percussion), Distended. Musculoskeletal: No clubbing, No swelling, No contractures. Integumentary: Wound to the lateral plantar aspect of the right great toe. Wound has no active drainage or bleed ing. Purulent tissue is clean and dry. Urinary: Other (No Huffman). External genitalia: Deferred Assessment And Plan - Current Problems (Diagnosis) (1) MRSA bacteremia Current Visit: Yes Status: Acute Plan: \ - continue medical workup - serial abdominal exams - ensure per dietary recommendations, - antibiotics, fever workup to continue - gastric emptying study shows gastroparesis, continue reglan - Will perform EGD as outpatient unless patient decompensates Physician Review Additional Text: Physical Exam General: Alert, AAOx3 HEENT: normal conjunctiva, sclera anicteric Respiratory: mild wheeze on exam, on 2L NC, nonlabored CV: 1+ b/l edema, irregularly irregular rhythm, Normal S1 S2 Abd: soft, distended, nontender, no rebound Ext: 4/5 weakness at R hip flexion, 5/5 dorsal/plantar flexion. 4+/5 LLE, 5/5 b /l upper extremities L great toe (medial aspect) - superficial healed ulcer, dressing applied R 2nd toe - dark / reddish-black discoloration under nail, thick callus on tip of toe - patient without sensation of b/l feet Problem List Sepsis secondary to MRSA bacteremia, unknown primary source Osteomyelitis of toe Acute renal failure Lower back pain, LLE weakness due to Advanced lumbar degenerative changes with prominent foraminal stenosis on the right at L3-4 Delayed gastric emptying h/o Cardiomyopathy Elevated troponin Elevated liver enzymes Chronic Afib h/o lymphoma MRSA bacteremia of unknown source. suspect from recent L great toe infection. Endocarditis not ruled out CT thoracic spine did note a rounded opacity in the right upper lung; CTA c hest (01/31): b/l atelectasis, possible pneumonia Leukocytosis now improving slowly but still high. Blood cultures remained positive. There is concern for endocarditis Most recent blood cultures to positive. Heme-Onc consulted given history lymphoma and persistent leukocytosis, reviewed labs and imaging, feels this is reactive to sepsis Echo obtained on 01/30 - no vegetation seen. Elevated troponin likely secondary to sepsis in the context of CHF. Elevated liver enzymes likely secondary to sepsis. started nystatin swish/swallow for erythematous / sore tongue on 01/31 Cardio consulted for eval of defibrillator / input on echo if appears infected Concern for osteomyelitis of the left 1st metatarsal head and proximal phalanx. back pain , left lower- extremity weakness - patient states this is new since 2- 3 days prior to admission. Family agree. 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 and titrate as needed for pain control -eventually, once the infection cleared will need to follow up with neurosurgery Delayed gastric emptying -unclear the reason, seems to be improving slowly, on Reglan -Dr. Allen input appreciated. -appetite slowly improving, able to drink 2-3 ensure bottles/day . Dispo: Recommending transfer to a tertiary hospital for AURE to rule out endocarditis.
--- NOTE | 2021-02-08 14:38 | P.PN ---
Subjective Date of Service: 02/08/21 Chief Complaint: Fatigue, right shoulder pain Patient seen examined at bedside. WBC and inflammatory markers downtrending. Awaiting bed at [facility] for AURE. Review of Systems 10-point ROS is otherwise unremarkable Physical Examination - Vital Signs Temperature: 97.2 F Blood Pressure: 130/71 Pulse: 113 Respirations: 22 Pulse Ox (%): 96 - Studies Laboratory Last Values WBC 34.50 K/uL (4.3-10.9) H* 01/27/21 12:44 RBC 4.63 M/uL (4.33-5.43) 01/27/21 12:44 Hgb 10.3 g/dL (13.6-17.9) L 01/27/21 12:44 Hct 33.4 % (39.6-49.0) L 01/27/21 12:44 MCV 72.2 fL (80-100) L D 01/27/21 12:44 MCH 22.2 pg (27.0-35.0) L D 01/27/21 12:44 MCHC 30.7 g/dL (32.0-36.0) L 01/27/21 12:44 RDW 16.4 % (12.1-15.2) H 01/27/21 12:44 Plt Count 222 K/uL (152-406) 01/27/21 12:44 MPV 7.9 fL (7.6-11.3) 01/27/21 12:44 Neutrophils % 96.6 % (41.7-73.7) H 01/27/21 12:44 Lymphocytes % 1.0 % (15.3-44.8) L 01/27/21 12:44 Monocytes % 2.3 % (3.3-12.3) L 01/27/21 12:44 Eosinophils % 0.0 % (0-4.4) 01/27/21 12:44 Basophils % 0.1 % (0-1.3) 01/27/21 12:44 Absolute Neutrophils 33.4 K/uL (1.8-8.0) H 01/27/21 12:44 Segmented Neutrophils 89 % (40-80) H 01/27/21 12:44 Band Neutrophils 6 % (0-1) H 01/27/21 12:44 Absolute Lymphocytes 0.4 K/uL (0.7-4.9) L 01/27/21 12:44 Lymphocytes 1 % (15-42) L 01/27/21 12:44 Monocytes 4 % (0-10) 01/27/21 12:44 Absolute Monocytes 0.8 K/uL (0.1-1.3) 01/27/21 12:44 Absolute Eosinophils 0.0 K/uL (0-0.5) 01/27/21 12:44 Absolute Basophils 0.0 K/uL (0-0.5) 01/27/21 12:44 Platelet Estimate Adeq 01/27/21 12:44 Morphology Comment Not seen (NOT SEEN) 01/27/21 12:44 PT 19.0 SECONDS (9.5-12.5) H 01/27/21 12:44 INR 1.64 01/27/21 12:44 Sodium 133 mmol/L (136-145) L 01/27/21 12:44 Potassium 3.8 mmol/L (3.5-5.1) 01/27/21 12:44 Chloride 99 mmol/L (98-107) 01/27/21 12:44 Carbon Dioxide 21 mmol/L (21-32) 01/27/21 12:44 BUN 30 mg/dL (7-18) H 01/27/21 12:44 Creatinine 1.48 mg/dL (0.55-1.3) H 01/27/21 12:44 Estimated GFR 46 mL/min (=/>90) L 01/27/21 12:44 Glucose 125 mg/dL (74-106) H 01/27/21 12:44 Lactic Acid 5.4 mmol/L (0.4-2.0) H* 01/27/21 18:12 Calcium 8.4 mg/dL (8.5-10.1) L 01/27/21 12:44 Magnesium 1.9 mg/dL (1.8-2.4) 01/27/21 12:44 Total Bilirubin 1.1 mg/dL (0.2-1.0) H 01/27/21 12:44 Direct Bilirubin 0.5 mg/dL (0-0.2) H 01/27/21 12:44 AST 50 U/L (15-37) H 01/27/21 12:44 ALT 36 U/L (12-78) 01/27/21 12:44 Alkaline Phosphatase 128 U/L (45-117) H 01/27/21 12:44 Rapid Troponin I 0.06 ng/mL (0.0-0.045) H 01/27/21 12:44 NT-Pro-B Natriuret Pep 6651 pg/mL (<450) H 01/27/21 12:44 Serum Total Protein 7.6 g/dL (6.4-8.2) 01/27/21 12:44 Albumin 2.9 g/dL (3.4-5.0) L 01/27/21 12:44 Globulin 4.7 g/dL (2.3-3.5) H 01/27/21 12:44 Albumin/Globulin Ratio 0.6 (1.1-1.8) L 01/27/21 12:44 Procalcitonin 30.53 ng/mL (<0.050) H 01/27/21 12:44 Influenza Type A RNA Negative (NEGATIVE) 01/27/21 12:15 Influenza Type B RNA Negative (NEGATIVE) 01/27/21 12:15 SARS-CoV-2 RNA (RT-PCR) Negative (NEGATIVE) 01/27/21 12:15 Active Medications Acetaminophen (Acetaminophen 325 Mg Tablet) 650 mg PO Q4H PRN PRN Reason: TEMP > 100' F Last Admin: 02/07/21 20:59 Dose: 650 mg Documented by: Albuterol Sulfate (Albuterol 2.5 Mg/3 Ml Neb Lena) 2.5 mg NEB [id number] [facility] Last Admin: 02/08/21 08:00 Dose: Not Given Documented by: Alteplase, Recombinant (Alteplase 2 Mg/Vial) 2 mg IV 1X [facility] Stop: 02/08/21 15:01 Last Admin: 02/08/21 14:15 Dose: 2 mg Documented by: Amiodarone HCl (Amiodarone Hcl 200 Mg Tab) 200 mg PO DAILY [facility] Last Admin: 02/08/21 09:14 Dose: 200 mg Documented by: Famotidine (Famotidine 20 Mg/2 Ml Vial) 20 mg IV DAILY [facility]; Protocol Last Admin: 02/08/21 09:13 Dose: 20 mg Documented by: Gabapentin (Gabapentin 300 Mg Cap) 300 mg PO BID [facility] Last Admin: 02/08/21 09:14 Dose: 300 mg Documented by: Daptomycin 600 mg/ Sodium (Chloride) 100 mls @ 200 mls/hr IVPB Q24H [facility]; Protocol Last Admin: 02/07/21 15:33 Dose: 100 mls Documented by: Cefepime HCl (Maxipime 1 Gm/10 Ml Ivp) 10 mls @ 200 mls/hr IV Q12HR [facility] Last Admin: 02/08/21 09:13 Dose: 10 mls Documented by: Ipratropium [place] (Ipratropium Brom 0.5mg/2.5ml) 0.5 mg NEB [id number] [facility] Last Admin: 02/08/21 08:00 Dose: Not Given Documented by: Lactobacillus Acidoph/Bulgaricus (Lactobacillus/Acidophilus Tab) 1 tab PO TID [facility] Last Admin: 02/08/21 13:18 Dose: 1 tab Documented by: Levothyroxine Sodium (Levothyroxine Sod 0.05 Mg Tablet) 0.05 mg PO DAILY [facility] Last Admin: 02/08/21 09:00 Dose: 0.05 mg Documented by: Metoclopramide HCl (Metoclopramide 5 Mg Tab) 10 mg PO Q6HR [facility] Last Admin: 02/08/21 11:57 Dose: 10 mg Documented by: Montelukast Sodium (Montelukast 10 Mg Tab) 10 mg PO DAILY [facility] Last Admin: 02/08/21 09:13 Dose: 10 mg Documented by: Nutritional Formula (Ensure High Protein 237 Ml Can) 237 ml PO BID [facility] Last Admin: 02/08/21 09:14 Dose: 237 ml Documented by: Nystatin (Nystatin 500,000 Unit/5 Ml Udc) 500,000 unit PO TID [facility] Last Admin: 02/08/21 13:18 Dose: 500,000 unit Documented by: Ondansetron HCl (Ondansetron 4 Mg/2 Ml Vial) 4 mg IV Q6HP PRN PRN Reason: NAUSEA / VOMITING Last Admin: 02/01/21 17:15 Dose: 4 mg Documented by: Potassium Bicarbonate (Potassium 25 Meq Efferv Tab) 25 meq PO BID [facility] Last Admin: 02/08/21 09:14 Dose: 25 meq Documented by: Sodium Chloride (Flush Normal Saline 10 Ml) 10 ml IV BID [facility] Last Admin: 02/08/21 09:15 Dose: 10 ml Documented by: Sterile Water (Water For Inj,Sterile 10 Ml) 2.2 ml IV 1X [facility] Stop: 02/08/21 15:01 Last Admin: 02/08/21 14:15 Dose: 2.2 ml Documented by: Assessment And Plan - Plan Physical Exam: General: Alert, In no apparent distress HEENT: Atraumatic, Normocephalic, PERRLA Neck: Supple, 2+ carotid pulse no bruit, JVD not distended Respiratory: clear to auscultation Cardiovascular: No edema, Normal pulses, Regular rate/rhythm Capillary refill: <2 Seconds Gastrointestinal:normal findings Musculoskeletal: No clubbing, No swelling, No contractures Integumentary: Wound to the lateral plantar aspect of the right great toe- callus. Wound has no active drainage or bleeding. wound to second toe on right foot under nail bed-appears to be coagulated blood. Wound on medial aspect of right foot-skin abrasion. Wound to sacral area: superficial skin tear likely from sheer force. Urinary: Other (No Huffman) Antibiotics: Daptomycin: start: 02/06 stop: -- Cefepime start: 02/06 stop: 02/20 Assessment: -sepsis of unknown origin -congestive heart failure status post AICD placements -history of throat cancer -hypothyroidism -anemia Plan: -continue antibiotics- vanco has been discontinued and patient has been started on daptomycin and cefepime. Atorvastatin has been held for duration of dapto treatment, will continue monitor renal function closely. CK levels ordered daily. Possible source of infection could be the wound on the patient's right great hallux-awiaing wound culture results. X-ray/CT has ruled out osteomyelitis however the patient's could still become septic from this wound. Will continue to monitor closely. All other tests have been negative including shoulder x-ray, chest/abdomen/pelvis CT. Patient did have a KUB which showed gastric distention, NG tube has been placed. AURE results negative--patient is awaiting bed at [facility] to undergo AURE. At this time source of infection is most likely attributed to the patient's wound in his right great toe. Wound ca re orders placed: Pain with Betadine wrap with kerlix. -repeat blood cultures on 02/06--positive. Cultures on 02/08--pending -patient is awaiting bed at [facility] to undergo AURE. -medical management per primary team -continue monitor for signs of infection -continue monitor CBC and BMP -DC likely to LTAC. Plan of care discussed with Dr. Spicer Thank you for consultation
[2021-02-08] MEDS ORDERED: WATER FOR INJ,STERILE 10 ML IV SCH (15:00)
[2021-02-08] MEDS ORDERED: ALTEPLASE 2 MG/VIAL IV SCH (15:00)
[2021-02-08] MEDS: DAPTOmycin 600 MG in NA CHLORIDE 0.9% 100 ML IVPB SCH (16:20)
--- NOTE | 2021-02-08 19:00 | P.PN ---
Subjective Date of Service: 02/08/21 Chief Complaint: Fatigue, right shoulder pain Patient states he feels better. Leukocytosis is improving gradually. Serial blood cultures continue to grow Staph. Physical Examination - Vital Signs Temperature: 98.3 F Blood Pressure: 106/66 Pulse: 109 Respirations: 22 Pulse Ox (%): 96 - Physical Exam General: Alert, In no apparent distress HEENT: Mucous membr. moist/pink Neck: Supple, JVD not distended Respiratory: Clear to auscultation bilaterally, Normal air movement Cardiovascular: No edema, Regular rate/rhythm, Normal S1 S2 Gastrointestinal: Soft and benign, Non-distended, No tenderness Musculoskeletal: No clubbing, No swelling Integumentary: Other (wound on the dorsum of left great toe.) Neurological: Normal strength at 5/5 x4 extr, Other (Moves all extremities spontaneously but globally weak.) Urinary: Huffman catheter Other Physical/Emotional Findings: General: Alert, In no apparent distress. HEENT: Atraumatic, Normocephalic, PERRLA. Neck: Supple, 2+ carotid pulse no bruit, JVD not distended. Respiratory: Expiratory wheezes, Rhonchi/gurgles (More prominent on the the left lower lobe), Other. Cardiovascular: No edema, Normal pulses, Regular rate/rhythm. Capillary refill: <2 Seconds. Gastrointestinal: Other (Dull to percussion), Distended. Musculoskeletal: No clubbing, No swelling, No contractures. Integumentary: Wound to the lateral plantar aspect of the right great toe. Wound has no active drainage or bleeding. Purulent tissue is clean and dry. Urinary: Other (No Huffman). External genitalia: Deferred Assessment And Plan - Current Problems (Diagnosis) (1) Sepsis Current Visit: Yes Status: Acute (2) Acute renal failure Current Visit: Yes Status: Acute (3) Cardiomyopathy Current Visit: Yes Status: Chronic (4) Elevated troponin Current Visit: Yes Status: Acute (5) Elevated liver enzymes Current Visit: Yes Status: Acute (6) MRSA bacteremia Current Visit: Yes Status: Acute Physician Review Additional Text: Physical Exam General: Alert, AAOx3 HEENT: normal conjunctiva, sclera anicteric Respiratory: mild wheeze on exam, on 2L NC, nonlabored CV: 1+ b/l edema, irregularly irregular rhythm, Normal S1 S2 Abd: soft, distended, nontender, no rebound Ext: 4/5 weakness at R hip flexion, 5/5 dorsal/plantar flexion. 4+/5 LLE, 5/5 b/l upper extremities L great toe (medial aspect) - superficial healed ulcer, dressing applied R 2nd toe - dark / reddish-black discoloration under nail, thick callus on tip of toe - patient without sensation of b/l feet Problem List Sepsis secondary to MRSA bacteremia, unknown primary source Osteomyelitis of toe Acute renal failure Lower back pain, LLE weakness due to Advanced lumbar degenerative changes with prominent foraminal stenosis on the right at L3-4 Delayed gastric emptying h/o Cardiomyopathy Elevated troponin Elevated liver enzymes Chronic Afib h/o lymphoma MRSA bacteremia of unknown source. suspect from recent L great toe infection. Endocarditis not ruled out CT thoracic spine did note a rounded opacity in the right upper lung; CTA chest (01/31): b/l atelectasis, possible pneumonia Leukocytosis now improving slowly but still high. Blood cultures remain positive. There is concerning for endocarditis Most recent blood culture 02/06: Coagulase positive Staph. Heme-Onc consulted given history lymphoma and persistent leukocytosis, reviewed labs and imaging, feels this is reactive to sepsis Echo obtained on 01/30 - no vegetation seen. Elevated troponin likely secondary to sepsis in the context of CHF. Elevated liver enzymes likely secondary to sepsis. started nystatin swish/swallow for erythematous / sore tongue on 01/31 Cardio consulted for eval of defibrillator / input on echo if appears infected Concern for osteomyelitis of the left 1st metatarsal head and proximal phalanx. back pain , left lower- extremity weakness-CT lumbar: Advanced lumbar degenerative changes with prominent foraminal stenosis on the right at L3-4 - consistent with exam findings -neurology consulted, recommended gabapentin for pain 300 b.i.d. and titrate as needed for pain control -eventually, once the infection cleared will need to follow up with neurosurgery Delayed gastric emptying -unclear the reason, seems to be improving slowly, on Reglan -Dr. Allen input appreciated. -no endoscopy at this time per Dr. Allen Dispo: Recommending transfer to a tertiary hospital for AURE to rule out endocarditis.
[2021-02-09] MEDS: METOCLOPRAMIDE 5 MG TAB PO SCH ×5 (00:25→23:44)
[2021-02-09] MEDS: ACETAMINOPHEN 325 MG TABLET PO PRN ×3 (00:55→21:58)
[2021-02-09] MEDS: IPRATROPIUM BROM 0.5MG/2.5ML NEB SCH ×4 (01:15→19:30)
[2021-02-09] MEDS: ALBUTEROL 2.5 MG/3 ML NEB SOL NEB SCH ×4 (01:15→19:30)
[2021-02-09 06:13] LABS: Basophils % 1.3 % (0-1.3); Lymphocytes % 5.9 % (15.3-44.8); RBC Red Blood Cell Count 3.66 M/uL (4.33-5.43)
[2021-02-09 06:25] LABS: BUN Blood Urea Nitrogen 12 mg/dL (7-18); Bicarbonate 27 mmol/L (21-32); Glucose Level 98 mg/dL (74-106); Potassium 3.9 mmol/L (3.5-5.1); Sodium Level 139 mmol/L (136-145)
[2021-02-09] MEDS: NYSTATIN 500,000 UNIT/5 ML UDC PO SCH ×3 (09:00→20:11)
[2021-02-09] MEDS: AMIODARONE HCL 200 MG TAB PO SCH (09:00)
[2021-02-09] MEDS: ENSURE HIGH PROTEIN 237 ML CAN PO SCH ×2 (09:00→20:12)
[2021-02-09] MEDS: LEVOTHYROXINE SOD 0.05 MG TABLET PO SCH (09:00)
[2021-02-09] MEDS: LACTOBACILLUS/ACIDOPHILUS TAB PO SCH ×3 (09:01→20:11)
[2021-02-09] MEDS: FAMOTIDINE 20 MG/2 ML VIAL IV SCH (09:01)
[2021-02-09] MEDS: GABAPENTIN 300 MG CAP PO SCH ×2 (09:01→20:12)
[2021-02-09] MEDS: MONTELUKAST 10 MG TAB PO SCH (09:01)
[2021-02-09] MEDS: POTASSIUM 25 MEQ EFFERV TAB PO SCH ×2 (09:01→20:12)
[2021-02-09] MEDS: CEFEPIME/SWI 1gm 10 ML IV SCH ×2 (09:12→20:11)
--- NOTE | 2021-02-09 10:46 | P.PN ---
Subjective Date of Service: 02/09/21 Chief Complaint: Fatigue, right shoulder pain Patient seen examined at bedside. I blood cell count continues to downtrend as well as inflammatory markers. Repeat blood cultures pending. Patient denies any acute complaints and states he is feeling well. Awaiting transportation to [facility] for AURE. Wounds stable. Review of Systems 10-point ROS is otherwise unremarkable Physical Examination - Vital Signs Temperature: 98 F Blood Pressure: 119/64 Pulse: 97 Respirations: 20 Pulse Ox (%): 97 - Studies Laboratory Last Values WBC 34.50 K/uL (4.3-10.9) H* 01/27/21 12:44 RBC 4.63 M/uL (4.33-5.43) 01/27/21 12:44 Hgb 10.3 g/dL (13.6-17.9) L 01/27/21 12:44 Hct 33.4 % (39.6-49.0) L 01/27/21 12:44 MCV 72.2 fL (80-100) L D 01/27/21 12:44 MCH 22.2 pg (27.0-35.0) L D 01/27/21 12:44 MCHC 30.7 g/dL (32.0-36.0) L 01/27/21 12:44 RDW 16.4 % (12.1-15.2) H 01/27/21 12:44 Plt Count 222 K/uL (152-406) 01/27/21 12:44 MPV 7.9 fL (7.6-11.3) 01/27/21 12:44 Neutrophils % 96.6 % (41.7-73.7) H 01/27/21 12:44 Lymphocytes % 1.0 % (15.3-44.8) L 01/27/21 12:44 Monocytes % 2.3 % (3.3-12.3) L 01/27/21 12:44 Eosinophils % 0.0 % (0-4.4) 01/27/21 12:44 Basophils % 0.1 % (0-1.3) 01/27/21 12:44 Absolute Neutrophils 33.4 K/uL (1.8-8.0) H 01/27/21 12:44 Segmented Neutrophils 89 % (40-80) H 01/27/21 12:44 Band Neutrophils 6 % (0-1) H 01/27/21 12:44 Absolute Lymphocytes 0.4 K/uL (0.7-4.9) L 01/27/21 12:44 Lymphocytes 1 % (15-42) L 01/27/21 12:44 Monocytes 4 % (0-10) 01/27/21 12:44 Absolute Monocytes 0.8 K/uL (0.1-1.3) 01/27/21 12:44 Absolute Eosinophils 0.0 K/uL (0-0.5) 01/27/21 12:44 Absolute Basophils 0.0 K/uL (0-0.5) 01/27/21 12:44 Platelet Estimate Adeq 01/27/21 12:44 Morphology Comment Not seen (NOT SEEN) 01/27/21 12:44 PT 19.0 SECONDS (9.5-12.5) H 01/27/21 12:44 INR 1.64 01/27/21 12:44 Sodium 133 mmol/L (136-145) L 01/27/21 12:44 Potassium 3.8 mmol/L (3.5-5.1) 01/27/21 12:44 Chloride 99 mmol/L (98-107) 01/27/21 12:44 Carbon Dioxide 21 mmol/L (21-32) 01/27/21 12:44 BUN 30 mg/dL (7-18) H 01/27/21 12:44 Creatinine 1.48 mg/dL (0.55-1.3) H 01/27/21 12:44 Estimated GFR 46 mL/min (=/>90) L 01/27/21 12:44 Glucose 125 mg/dL (74-106) H 01/27/21 12:44 Lactic Acid 5.4 mmol/L (0.4-2.0) H* 01/27/21 18:12 Calcium 8.4 mg/dL (8.5-10.1) L 01/27/21 12:44 Magnesium 1.9 mg/dL (1.8-2.4) 01/27/21 12:44 Total Bilirubin 1.1 mg/dL (0.2-1.0) H 01/27/21 12:44 Direct Bilirubin 0.5 mg/dL (0-0.2) H 01/27/21 12:44 AST 50 U/L (15-37) H 01/27/21 12:44 ALT 36 U/L (12-78) 01/27/21 12:44 Alkaline Phosphatase 128 U/L (45-117) H 01/27/21 12:44 Rapid Troponin I 0.06 ng/mL (0.0-0.045) H 01/27/21 12:44 NT-Pro-B Natriuret Pep 6651 pg/mL (<450) H 01/27/21 12:44 Serum Total Protein 7.6 g/dL (6.4-8.2) 01/27/21 12:44 Albumin 2.9 g/dL (3.4-5.0) L 01/27/21 12:44 Globulin 4.7 g/dL (2.3-3.5) H 01/27/21 12:44 Albumin/Globulin Ratio 0.6 (1.1-1.8) L 01/27/21 12:44 Procalcitonin 30.53 ng/mL (<0.050) H 01/27/21 12:44 Influenza Type A RNA Negative (NEGATIVE) 01/27/21 12:15 Influenza Type B RNA Negative (NEGATIVE) 01/27/21 12:15 SARS-CoV-2 RNA (RT-PCR) Negative (NEGATIVE) 01/27/21 12:15 Assessment And Plan - Plan Physical Exam: General: Alert, In no apparent distress HEENT: Atraumatic, Normocephalic, PERRLA Neck: Supple, 2+ carotid pulse no bruit, JVD not distended Respiratory: clear to auscultation Cardiovascular: No edema, Normal pulses, Regular rate/rhythm Capillary refill: <2 Seconds Gastrointestinal:normal findings Musculoskeletal: No clubbing, No swelling, No contractures Integumentary: Wound to the lateral plantar aspect of the right great toe- callus. Wound has no active drainage or bleeding. wound to second toe on right foot under nail bed-appears to be coagulated blood. Wound on medial aspect of right foot-skin abrasion. Wound to sacral area: superficial skin tear likely from sheer force. Urinary: bell Antibiotics: Daptomycin: start: 02/06 stop: -- Cefepime start: 02/06 stop: 02/20 Assessment: -sepsis of unknown origin -congestive heart failure status post AICD placements -history of throat cancer -hypothyroidism -anemia Plan: -continue antibiotics- vanco has been discontinued and patient has been started on daptomycin and cefepime. Atorvastatin has been held for duration of dapto treatment, will continue monitor renal function closely. CK levels ordered daily. Possible source of infection could be the wound on the patient's right great hallux-awiaing wound culture results. X-ray/CT has ruled out osteomyelitis however the patient's could still become septic from this wound. Will continue to monitor closely. All other tests have been negative including shoulder x-ray, chest/abdomen/pelvis CT. Endocarditis cannot be ruled out- AURE results negative--patient is awaiting bed at [facility] to undergo AURE. Patient had recent placement of a defibrillator which could be infected. At this time source of infection is most likely attributed to the patient's wound in his right great toe. Wound care orders placed: Pain with Betadine wrap with kerlix. -repeat blood cultures on 02/06--positive. Cultures on 02/08--pending -patient is awaiting bed at [facility] to undergo AURE. -medical management per primary team -continue monitor for signs of infection -continue monitor CBC and BMP -DC likely to LTAC. Plan of care discussed with Dr. Spicer Thank you for consultation
--- NOTE | 2021-02-09 11:04 | PN ---
Date of Progress Note: 02/08/2021 Subjective: The case was discussed on 02/08/[address] Chaidez. Mr. Rouse has come in with MRSA sepsis possibly related to osteomyelitis. There is still concern about an AICD infection. Transthor acic echo does not show any vegetation or thrombus. Nevertheless, I think that it would be best to t ransfer Mr. Rouse to [place] to evaluate his AICD for possibility of infection into the defibrillato r, if that is the case, obviously the entire system will have to be pulled out. The patient is impro ving, but I think further cardiac workup in that regard is indicated. CESAR/VALERIE Voice ID: [id number] Report ID: [id number]
--- NOTE | 2021-02-09 11:49 | P.PN ---
Subjective Date of Service: 02/09/21 Chief Complaint: Fatigue, right shoulder pain Patient feels better, tolerating 3 ensure cans per day, continues to have decreased appetite, continues to have bowel function. Physical Examination - Vital Signs Temperature: 98 F Blood Pressure: 119/64 Pulse: 97 Respirations: 20 Pulse Ox (%): 97 - Physical Exam General: Alert, In no apparent distress, Cooperative HEENT: Mucous membr. moist/pink Respiratory: Normal air movement Gastrointestinal: Soft and benign, Non-distended, No tenderness, No masses, No rebound, No guarding Other Physical/Emotional Findings: General: Alert, In no apparent distress. HEENT: Atraumatic, Normocephalic, PERRLA. Neck: Supple, 2+ carotid pulse no bruit, JVD not distended. Respiratory: Expiratory wheezes, Rhonchi/gurgles (More prominent on the the left lower lobe), Other. Cardiovascular: No edema, Normal pulses, Regular rate/rhythm. Capillary refill: <2 Seconds. Gastrointestinal: Other (Dull to percussion), Distended. Musculoskeletal: No clubbing, No swelling, No contractures. Integumentary: Wound to the lateral plantar aspect of the right great toe. Wound has no active drainage or bleeding. Purulent tissue is clean and dry. Urinary: Other (No Huffman). External genitalia: Deferred Assessment And Plan - Current Problems (Diagnosis) (1) MRSA bacteremia Current Visit: Yes Status: Acute Plan: \ - continue medical plan - serial abdominal exams - ensure per dietary recommendations, - antibiotics, leukocytosis improving - gastric emptying study shows gastroparesis, continue reglan - Will perform EGD as outpatient unless patient decompensates Physician Review Additional Text: Physical Exam General: Alert, AAOx3 HEENT: normal conjunctiva, sclera anicteric Respiratory: mild wheeze on exam, on 2L NC, nonlabored CV: 1+ b/l edema, irregularly irregular rhythm, Normal S1 S2 Abd: soft, distended, nontender, no rebound Ext: 4/5 weakness at R hip flexion, 5/5 dorsal/plantar flexion. 4+/5 LLE, 5/5 b/l upper extremities L great toe (medial aspect) - superficial healed ulcer, dressing applied R 2nd toe - dark / reddish-black discoloration under nail, thick callus on tip of toe - patient without sensation of b/l feet Problem List Sepsis secondary to MRSA bacteremia, unknown primary source Osteomyelitis of toe Acute renal failure Lower back pain, LLE weakness due to Advanced lumbar degenerative changes with prominent foraminal stenosis on the right at L3-4 Delayed gastric emptying h/o Cardiomyopathy Elevated troponin Elevated liver enzymes Chronic Afib h/o lymphoma MRSA bacteremia of unknown source. suspect from recent L great toe infection. Endocarditis not ruled out CT thoracic spine did note a rounded opacity in the right upper lung; CTA chest (01/31): b/l atelectasis, possible pneumonia Leukocytosis now improving slowly but still high. Blood cultures remain positive. There is concerning for endocarditis Most recent blood culture 02/06: Coagulase positive Staph. Heme-Onc consulted given history lymphoma and persistent leukocytosis, reviewed labs and imaging, feels this is reactive to sepsis Echo obtained on 01/30 - no vegetation seen. Elevated troponin likely secondary to sepsis in the context of CHF. Elevated liver enzymes likely secondary to sepsis. started nystatin swish/swallow for erythematous / sore tongue on 01/31 Cardio consulted for eval of defibrillator / input on echo if appears infected Concern for osteomyelitis of the left 1st metatarsal head and proximal phalanx. back pain , left lower- extremity weakness-CT lumbar: Advanced lumbar degenerative changes with prominent foraminal stenosis on the right at L3-4 - consistent with exam findings -neurology consulted, recommended gabapentin for pain 300 b.i.d. and titrate as needed for pain control -eventually, once the infection cleared will need to follow up with neurosurgery Delayed gastric emptying -unclear the reason, seems to be improving slowly, on Reglan -Dr. Allen input appreciated. -no endoscopy at this time per Dr. Allen Dispo: Recommending transfer to a tertiary hospital for AURE to rule out endocarditis.
--- NOTE | 2021-02-09 14:15 | P.PN ---
Subjective Date of Service: 02/09/21 Chief Complaint: Fatigue, right shoulder pain Patient states he feels better. He states his back pain is better. Leukocytosis is improving gradually. Serial blood cultures continue to grow MRSA. Physical Examination - Vital Signs Temperature: 97.1 F Blood Pressure: 120/71 Pulse: 105 Respirations: 20 Pulse Ox (%): 98 - Physical Exam General: Alert, In no apparent distress HEENT: Mucous membr. moist/pink Neck: JVD not distended Respiratory: Clear to auscultation bilaterally, Normal air movement Cardiovascular: Regular rate/rhythm, Normal S1 S2, Edema Gastrointestinal: Soft and benign, Non-distended, No tenderness Musculoskeletal: No tenderness Integumentary: No rashes, Other (Dressed left great toe wound.) Neurological: Normal strength at 5/5 x4 extr, Cranial nerves 3-12 intact Other Physical/Emotional Findings: General: Alert, In no apparent distress. HEENT: Atraumatic, Normocephalic, PERRLA. Neck: Supple, 2+ carotid pulse no bruit, JVD not distended. Respiratory: Expiratory wheezes, Rhonchi/gurgles (More prominent on the the left lower lobe), Other. Cardiovascular: No edema, Normal pulses, Regular rate/rhythm. Capillary refill: <2 Seconds. Gastrointestinal: Other (Dull to percussion), Distended. Musculoskeletal: No clubbing, No swelling, No contractures. Integumentary: Wound to the lateral plantar aspect of the right great toe. Wound has no active drainage or bleeding. Purulent tissue is clean and dry. Urinary: Other (No Huffman). External genitalia: Deferred Assessment And Plan - Current Problems (Diagnosis) (1) Sepsis Current Visit: Yes Status: Acute (2) Acute renal failure Current Visit: Yes Status: Acute (3) Cardiomyopathy Current Visit: Yes Status: Chronic (4) Elevated troponin Current Visit: Yes Status: Acute (5) Elevated liver enzymes Current Visit: Yes Status: Acute (6) MRSA bacteremia Current Visit: Yes Status: Acute Physician Review Additional Text: Physical Exam General: Alert, AAOx3 HEENT: normal conjunctiva, sclera anicteric Respiratory: mild wheeze on exam, on 2L NC, nonlabored CV: 1+ b/l edema, irregularly irregular rhythm, Normal S1 S2 Abd: soft, distended, nontender, no rebound Ext: 4/5 weakness at R hip flexion, 5/5 dorsal/plantar flexion. 4+/5 LLE, 5/5 b/l upper extremities L great toe (medial aspect) - superficial healed ulcer, dressing applied R 2nd toe - dark / reddish-black discoloration under nail, thick callus on tip of toe - patient without sensation of b/l feet Problem List Sepsis secondary to MRSA bacteremia, unknown primary source Osteomyelitis of toe Acute renal failure Lower back pain, LLE weakness due to Advanced lumbar degenerative changes with prominent foraminal stenosis on the right at L3-4 Delayed gastric emptying h/o Cardiomyopathy Elevated troponin Elevated liver enzymes Chronic Afib h/o lymphoma MRSA bacteremia of unknown source. suspect from recent L great toe infection. Endocarditis not ruled out CT thoracic spine did note a rounded opacity in the right upper lung; CTA chest (01/31): b/l atelectasis, possible pneumonia Leukocytosis now improving slowly but still high. Blood cultures remain positive for MRSA. This is concerning for endocarditis Most recent blood culture 02/06:MRSA. Heme-Onc consulted given history lymphoma and persistent leukocytosis, reviewed labs and imaging, feels this is reactive to sepsis Echo obtained on 01/30 - no vegetation seen. Elevated troponin likely secondary to sepsis in the context of CHF. Elevated liver enzymes likely secondary to sepsis. started nystatin swish/swallow for erythematous / sore tongue on 01/31 Cardio consulted for eval of defibrillator / input on echo if appears infected Concern for osteomyelitis of the left 1st metatarsal head and proximal phalanx. back pain , left lower- extremity weakness-CT lumbar: Advanced lumbar degenerative changes with prominent foraminal stenosis on the right at L3-4 - consistent with exam findings -neurology consulted, recommended gabapentin for pain 300 b.i.d. and titrate as needed for pain control -eventually, once the infection cleared will need to follow up with neurosurgery Delayed gastric emptying -unclear the reason, seems to be improving slowly, on Reglan -Dr. Allen input appreciated. -no endoscopy at this time per Dr. Allen Dispo: Transferred to [facility]. Waiting for bed availability.
[2021-02-09] MEDS: DAPTOmycin 600 MG in NA CHLORIDE 0.9% 100 ML IVPB SCH (16:19)
[2021-02-09] MEDS ORDERED: MORPHINE 2 MG/ML SYR IV ONE (20:42)
[2021-02-09] MEDS ORDERED: MELATONIN 5 MG TABLET PO PRN (20:57)
[2021-02-10] MEDS: ALBUTEROL 2.5 MG/3 ML NEB SOL NEB SCH ×4 (02:18→20:00)
[2021-02-10] MEDS: IPRATROPIUM BROM 0.5MG/2.5ML NEB SCH ×4 (02:18→20:00)
[2021-02-10 06:09] LABS: Absolute Lymphocytes (CBC) 0.8 K/uL (0.7-4.9); Hematocrit 26.7 % (39.6-49.0); Lymphocytes % 5.4 % (15.3-44.8); MPV 7.6 fL (7.6-11.3)
[2021-02-10 06:16] LABS: BUN Blood Urea Nitrogen 14 mg/dL (7-18); Bicarbonate 27 mmol/L (21-32); Glucose Level 108 mg/dL (74-106); Potassium 3.9 mmol/L (3.5-5.1); Sodium Level 139 mmol/L (136-145)
[2021-02-10] MEDS: METOCLOPRAMIDE 5 MG TAB PO SCH ×4 (07:18→17:32)
--- NOTE | 2021-02-10 08:28 | P.PN ---
Subjective Date of Service: 02/10/21 Chief Complaint: Fatigue, right shoulder pain Patient feels better, tolerating 3+ ensure cans per day, continues to have improved appetite, continues to have bowel function. no nausea, emesis. Physical Examination - Vital Signs Temperature: 97.2 F Blood Pressure: 116/60 Pulse: 104 Respirations: 20 Pulse Ox (%): 95 - Physical Exam General: Alert, In no apparent distress, Cooperative HEENT: Mucous membr. moist/pink Gastrointestinal: Soft and benign, No ascites, No tenderness, No masses, No rebound, No guarding Other Physical/Emotional Findings: General: Alert, In no apparent distress. HEENT: Atraumatic, Normocephalic, PERRLA. Neck: Supple, 2+ carotid pulse no bruit, JVD not distended. Respiratory: Expiratory wheezes, Rhonchi/gurgles (More prominent on the the left lower lobe), Other. Cardiovascular: No edema, Normal pulses, Regular rate/rhythm. Capillary refill: <2 Seconds. Gastrointestinal: Other (Dull to percussion), Distended. Musculoskeletal: No clubbing, No swelling, No contractures. Integumentary: Wound to the lateral plantar aspect of the right great toe. Wound has no active drainage or bleeding. Purulent tissue is clean and dry. Urinary: Other (No Huffman). External genitalia: Deferred Assessment And Plan - Current Problems (Diagnosis) (1) MRSA bacteremia Current Visit: Yes Status: Acute Plan: \ - continue medical plan - serial abdominal exams - ensure per dietary recommendations, - antibiotics, leukocytosis improving - gastric emptying study shows gastroparesis, continue reglan - Will perform EGD as outpatient unless intolerance occurs Physician Review Additional Text: Physical Exam General: Alert, AAOx3 HEENT: normal conjunctiva, sclera anicteric Respiratory: mild wheeze on exam, on 2L NC, nonlabored CV: 1+ b/l edema, irregularly irregular rhythm, Normal S1 S2 Abd: soft, distended, nontender, no rebound Ext: 4/5 weakness at R hip flexion, 5/5 dorsal/plantar flexion. 4+/5 LLE, 5/5 b/l upper extremities L great toe (medial aspect) - superficial healed ulcer, dressing applied R 2nd toe - dark / reddish-black discoloration under nail, thick callus on tip of toe - patient without sensation of b/l feet Problem List Sepsis secondary to MRSA bacteremia, unknown primary source Osteomyelitis of toe Acute renal failure Lower back pain, LLE weakness due to Advanced lumbar degenerative changes with prominent foraminal stenosis on the right at L3-4 Delayed gastric emptying h/o Cardiomyopathy Elevated troponin Elevated liver enzymes Chronic Afib h/o lymphoma MRSA bacteremia of unknown source. suspect from recent L great toe infection. Endocarditis not ruled out CT thoracic spine did note a rounded opacity in the right upper lung; CTA chest (01/31): b/l atelectasis, possible pneumonia Leukocytosis now improving slowly but still high. Blood cultures remain positive for MRSA. This is concerning for endocarditis Most recent blood culture 02/06:MRSA. Heme-Onc consulted given history lymphoma and persistent leukocytosis, reviewed labs and imaging, feels this is reactive to sepsis Echo obtained on 01/30 - no vegetation seen. Elevated troponin likely secondary to sepsis in the context of CHF. Elevated liver enzymes likely secondary to sepsis. started nystatin swish/swallow for erythematous / sore tongue on 01/31 Cardio consulted for eval of defibrillator / input on echo if appears infected Concern for osteomyelitis of the left 1st metatarsal head and proximal phalanx. back pain , left lower- extremity weakness-CT lumbar: Advanced lumbar degenerative changes with prominent foraminal stenosis on the right at L3-4 - consistent with exam findings -neurology consulted, recommended gabapentin for pain 300 b.i.d. and titrate as needed for pain control -eventually, once the infection cleared will need to follow up with neurosurgery Delayed gastric emptying -unclear the reason, seems to be improving slowly, on Reglan -Dr. Allen input appreciated. -no endoscopy at this time per Dr. Allen Dispo: Transferred to [facility]. Waiting for bed availability.
[2021-02-10 08:35] LABS: Blood Morphology Comment NOTED (NOT SEEN); Ovalocytes 1+; Platelet Estimate ADEQ; Polychromasia SLIGHT
[2021-02-10] MEDS: LEVOTHYROXINE SOD 0.05 MG TABLET PO SCH (09:00)
[2021-02-10] MEDS: ENSURE HIGH PROTEIN 237 ML CAN PO SCH ×2 (09:00→21:00)
[2021-02-10] MEDS: NYSTATIN 500,000 UNIT/5 ML UDC PO SCH ×3 (09:11→22:16)
[2021-02-10] MEDS: MONTELUKAST 10 MG TAB PO SCH (09:11)
[2021-02-10] MEDS: POTASSIUM 25 MEQ EFFERV TAB PO SCH ×2 (09:11→22:17)
[2021-02-10] MEDS: CEFEPIME/SWI 1gm 10 ML IV SCH ×2 (09:11→22:17)
[2021-02-10] MEDS: ACETAMINOPHEN 325 MG TABLET PO PRN (09:11)
[2021-02-10] MEDS: LACTOBACILLUS/ACIDOPHILUS TAB PO SCH ×3 (09:12→22:17)
[2021-02-10] MEDS: AMIODARONE HCL 200 MG TAB PO SCH (09:12)
[2021-02-10] MEDS: FAMOTIDINE 20 MG/2 ML VIAL IV SCH (09:12)
[2021-02-10] MEDS: GABAPENTIN 300 MG CAP PO SCH ×2 (09:12→22:17)
--- NOTE | 2021-02-10 10:34 | P.PN ---
Subjective Date of Service: 02/10/21 Chief Complaint: Fatigue, right shoulder pain Patient seen examined at bedside. WBC downtredning. Blood cultures on 01/11- positive. Repeat ordered. Review of Systems 10-point ROS is otherwise unremarkable Physical Examination - Vital Signs Temperature: 97.2 F Blood Pressure: 116/60 Pulse: 104 Respirations: 20 Pulse Ox (%): 95 - Studies Microbiology 01/27/21 14:30 Blood - Blood Aerobic Blood Culture - Final Meth Resistant Staph Aureus 01/27/21 14:30 Blood - Blood Blood Culture Gram Stain - Final 01/27/21 14:30 Blood - Blood Anaerobic Blood Culture - Final Meth Resistant Staph Aureus 01/27/21 14:30 Blood - Blood Gram Stain - Final 01/27/21 14:23 Blood - Blood Aerobic Blood Culture - Final Meth Resistant Staph Aureus 01/27/21 14:23 Blood - Blood Blood Culture Gram Stain - Final 01/27/21 14:23 Blood - Blood Anaerobic Blood Culture - Final Meth Resistant Staph Aureus 01/27/21 14:23 Blood - Blood Gram Stain - Final Assessment And Plan - Plan Physical Exam: General: Alert, In no apparent distress HEENT: Atraumatic, Normocephalic, PERRLA Neck: Supple, 2+ carotid pulse no bruit, JVD not distended Respiratory: clear to auscultation Cardiovascular: No edema, Normal pulses, Regular rate/rhythm Capillary refill: <2 Seconds Gastrointestinal:normal findings Musculoskeletal: No clubbing, No swelling, No contractures Integumentary: Wound to the lateral plantar aspect of the left great toe- callus. Wound has no active drainage or bleeding. wound to second toe on right foot under nail bed-appears to be coagulated blood. Wound on medial aspect of right foot-skin abrasion. Wound to sacral area: superficial skin tear likely from sheer force. Urinary: bell Antibiotics: Daptomycin: start: 02/06 stop: -- Cefepime start: 02/06 stop: 02/20 Assessment: -sepsis of unknown origin -congestive heart failure status post AICD placements -wounds to bilateral lower extremities -history of throat cancer -hypothyroidism -anemia Plan: -continue antibiotics- vanco has been discontinued and patient has been started on daptomycin and cefepime. Atorvastatin has been held for duration of dapto treatment, will continue monitor renal function closely. CK levels ordered daily. * Possible source of infection could be the wound on the patient's left great hallux- wound cultures grew MRSA P. mirabilis, covered by antibiotics. X- ray/CT has ruled out osteomyelitis however the patient's could still become septic from this wound. Will continue to monitor closely. At this time source of infection is most likely attributed to the patient's wound in his right great toe. Wound care orders placed: Pain with Betadine wrap with kerlix. * All other tests have been negative including shoulder x-ray, c hest/abdomen/pelvis CT. Endocarditis cannot be ruled out- AURE results negative--patient is awaiting bed at [facility] to undergo AURE. Patient had recent placement of a defibrillator which could be infected. -blood cultures- have been positive since admission. order place for removal of right arm PICC line-use peripheral IV for next 48 hr. -UA ordered-foly present. -patient is awaiting bed at [facility] to undergo AURE. -medical management per primary team -continue monitor for signs of infection -continue monitor CBC and BMP -DC likely to LTAC. Plan of care discussed with Dr. Spicer Thank you for consultation
[2021-02-10 12:49] LABS: Urine Appearance CLEAR; Urine Blood 1+ (Negative); Urine Color DK YELLOW; Urine Glucose NEGATIVE (Negative); Urine Protein TRACE (NEG); Urine Specific Gravity >=1.030 (1.005-1.030)
[2021-02-10 12:53] LABS: Urine Bilirubin 1+ (NEG)
[2021-02-10 13:03] LABS: Urine Bacteria <20 /HPF (NONE SEEN); Urine Microscopic Reflex ORDER UMIC; Urine Mucus MOD /HPF (NONE SEEN); Urine RBC >50 /HPF (NONE SEEN)
[2021-02-10] MEDS: DAPTOmycin 600 MG in NA CHLORIDE 0.9% 100 ML IVPB SCH (15:59)
--- NOTE | 2021-02-10 18:54 | P.PN ---
Subjective Date of Service: 02/10/21 Chief Complaint: Fatigue, right shoulder pain Patient states he feels better. Leukocytosis continued to improve. Serial blood cultures continue to grow MRSA. Physical Examination - Vital Signs Temperature: 97.5 F Blood Pressure: 119/60 Pulse: 106 Respirations: 20 Pulse Ox (%): 95 - Physical Exam General: Alert, In no apparent distress, Oriented x3 Neck: Supple Respiratory: Clear to auscultation bilaterally, Normal air movement Cardiovascular: Regular rate/rhythm, Normal S1 S2, Edema (1+ bilateral lower extremity pitting edema.) Gastrointestinal: Soft and benign, Non-distended, No tenderness Integumentary: No rashes Neurological: Normal strength at 5/5 x4 extr Other Physical/Emotional Findings: General: Alert, In no apparent distress. HEENT: Atraumatic, Normocephalic, PERRLA. Neck: Supple, 2+ carotid pulse no bruit, JVD not distended. Respiratory: Expiratory wheezes, Rhonchi/gurgles (M ore prominent on the the left lower lobe), Other. Cardiovascular: No edema, Normal pulses, Regular rate/rhythm. Capillary refill: <2 Seconds. Gastrointestinal: Other (Dull to percussion), Distended. Musculoskeletal: No clubbing, No swelling, No contractures. Integumentary: Wound to the lateral plantar aspect of the right great toe. Wound has no active drainage or bleeding. Purulent tissue is clean and dry. Urinary: Other (No Huffman). External genitalia: Deferred Assessment And Plan - Current Problems (Diagnosis) (1) Sepsis Current Visit: Yes Status: Acute (2) Acute renal failure Current Visit: Yes Status: Acute (3) Cardiomyopathy Current Visit: Yes Status: Chronic (4) Elevated troponin Current Visit: Yes Status: Acute (5) Elevated liver enzymes Current Visit: Yes Status: Acute (6) MRSA bacteremia Current Visit: Yes Status: Acute - Plan MRSA bacteremia of unknown source. Leukocytosis is worse today. Chest x-ray: No acute infiltrate. Continue IV vancomycin. PT IV cefepime Follow blood cultures. Infectious disease consult. TTE echocardiogram given patient has AICD in place. Patient may need AURE to rule out endocarditis given multiple blood cultures growing MRSA in which case he may have to be transferred to a tertiary center. Consult infectious disease. CT thoracic and lumbar spine-no abscess. CT thoracic spine also demonstrate rounded opacity in the right upper load. Round pneumonia not excluded. Elevated troponin likely secondary to sepsis in the contest of CHF. Elevated liver enzymes likely secondary to sepsis. PT evaluation. Physician Review Additional Text: Physical Exam General: Alert, AAOx3 HEENT: normal conjunctiva, sclera anicteric Respiratory: mild wheeze on exam, on 2L NC, nonlabored CV: 1+ b/l edema, irregularly irregular rhythm, Normal S1 S2 Abd: soft, distended, nontender, no rebound Ext: 4/5 weakness at R hip flexion, 5/5 dorsal/plantar flexion. 4+/5 LLE, 5/5 b/l upper extremities L great toe (medial aspect) - superficial healed ulcer, dressing applied R 2nd toe - dark / reddish-black discoloration under nail, thick callus on tip of toe - patient without sensation of b/l feet Problem List Sepsis secondary to MRSA bacteremia, unknown primary source Osteomyelitis of toe Acute renal failure Lower back pain, LLE weakness due to Advanced lumbar degenerative changes with prominent foraminal stenosis on the right at L3-4 Delayed gastric emptying h/o Cardiomyopathy Elevated troponin Elevated liver enzymes Chronic Afib h/o lymphoma MRSA bacteremia of unknown source. suspect from recent L great toe infection. Endocarditis not ruled out CT thoracic spine did not show any abscess. A rounded opacity in the right upper lung; CTA chest (01/31): b/l atelectasis, possible pneumonia Leukocytosis now improving slowly. Blood cultures remain positive for MRSA. This is concerning for endocarditis Most recent blood culture 02/06:MRSA. Heme-Onc consulted given history lymphoma and persistent leukocytosis, reviewed labs and imaging, feels this is reactive to sepsis Echo obtained on 01/30 - no vegetation seen. Elevated troponin likely secondary to sepsis in the context of CHF. Elevated liver enzymes likely secondary to sepsis. started nystatin swish/swallow for erythematous / sore tongue on 01/31 Cardio consulted for eval of defibrillator / input on echo if appears infected Concern for osteomyelitis of the left 1st metatarsal head and proximal phalanx. Infectious disease is following. Remove PICC line. Insert peripheral line. Continue current antibiotics. back pain , left lower- extremity weakness-CT lumbar: Advanced lumbar degenerative changes with prominent foraminal stenosis on the right at L3-4 - consistent with exam findings -neurology consulted, recommended gabapentin for pain 300 b.i.d. and titrate as needed for pain control -eventually, once the infection cleared will need to follow up with neurosurgery Delayed gastric emptying -unclear the reason, seems to be improving slowly, on Reglan -Dr. Allen input appreciated. -no endoscopy at this time per Dr. Allen Dispo: Transferred to [facility] initiated. I called and spoke to EP Dr. Hebert of [facility] about the need for transfer. No bed availability as of now per transfer center. Waiting for bed availability.
[2021-02-11] MEDS: METOCLOPRAMIDE 5 MG TAB PO SCH ×4 (00:43→17:00)
[2021-02-11] MEDS: IPRATROPIUM BROM 0.5MG/2.5ML NEB SCH ×3 (02:00→14:00)
[2021-02-11] MEDS: ALBUTEROL 2.5 MG/3 ML NEB SOL NEB SCH ×3 (02:00→14:00)
[2021-02-11] MEDS: ACETAMINOPHEN 325 MG TABLET PO PRN (03:40)
[2021-02-11] MEDS: ENSURE HIGH PROTEIN 237 ML CAN PO SCH (09:00)
[2021-02-11] MEDS: LEVOTHYROXINE SOD 0.05 MG TABLET PO SCH (09:00)
[2021-02-11] MEDS: POTASSIUM 25 MEQ EFFERV TAB PO SCH (09:35)
[2021-02-11] MEDS: CEFEPIME/SWI 1gm 10 ML IV SCH (09:35)
[2021-02-11] MEDS: NYSTATIN 500,000 UNIT/5 ML UDC PO SCH ×2 (09:36→14:42)
[2021-02-11] MEDS: FAMOTIDINE 20 MG/2 ML VIAL IV SCH (09:36)
[2021-02-11] MEDS: AMIODARONE HCL 200 MG TAB PO SCH (09:36)
[2021-02-11] MEDS: MONTELUKAST 10 MG TAB PO SCH (09:36)
[2021-02-11] MEDS: GABAPENTIN 300 MG CAP PO SCH (09:36)
[2021-02-11] MEDS: LACTOBACILLUS/ACIDOPHILUS TAB PO SCH ×2 (09:36→14:00)
[2021-02-11 10:37] LABS: Absolute Lymphocytes (CBC) 0.8 K/uL (0.7-4.9); Basophils % 0.5 % (0-1.3); Lymphocytes % 5.5 % (15.3-44.8); MPV 7.8 fL (7.6-11.3)
[2021-02-11 10:39] VITALS: O2SAT 94
--- NOTE | 2021-02-11 11:56 | P.PN ---
Subjective Date of Service: 02/11/21 Chief Complaint: Fatigue, right shoulder pain No major changes from yesterday Leukocytosis continued to improve. Serial blood cultures continue to grow MRSA. Most recent culture 02/10 growing Gram positive cocci. Physical Examination - Vital Signs Temperature: 96.4 F Blood Pressure: 102/55 Pulse: 103 Respirations: 22 Pulse Ox (%): 96 - Physical Exam General: Alert, In no apparent distress HEENT: Mucous membr. moist/pink Neck: Supple, JVD not distended Respiratory: Clear to auscultation bilaterally, Normal air movement Cardiovascular: Regular rate/rhythm, Normal S1 S2, No murmurs, Edema (Bilateral lower extremities) Gastrointestinal: Normal bowel sounds, Soft and benign, Non-distended, No tenderness Musculoskeletal: No swelling Integumentary: No rashes Neurological: Other (No focal motor deficit) Other Physical/Emotional Findings: General: Alert, In no apparent distress. HEENT: Atraumatic, Normocephalic, PERRLA. Neck: Supple, 2+ carotid pulse no bruit, JVD not distended. Respiratory: Expiratory wheezes, Rhonchi/gurgles (More prominent on the the left lower lobe), Other. Cardiovascular: No edema, Normal pulses, Regular rate/rhythm. Capillary refill: <2 Seconds. Gastrointestinal: Other (Dull to percussion), Distended. Musculoskeletal: No clubbing, No swelling, No contractures. Integumentary: Wound to the lateral plantar aspect of the right great toe. Wound has no active drainage or bleeding. Purulent tissue is clean and dry. Urinary: Other (No Huffman). External genitalia: Deferred Assessment And Plan - Current Problems (Diagnosis) (1) Sepsis Current Visit: Yes Status: Acute (2) Acute renal failure Current Visit: Yes Status: Acute (3) Cardiomyopathy Current Visit: Yes Status: Chronic (4) Elevated troponin Current Visit: Yes Status: Acute (5) Elevated liver enzymes Current Visit: Yes Status: Acute (6) MRSA bacteremia Current Visit: Yes Status: Acute - Plan MRSA bacteremia of unknown source. Leukocytosis is worse today. Chest x-ray: No acute infiltrate. Continue IV vancomycin. PT IV cefepime Follow blood cultures. Infectious disease consult. TTE echocardiogram given patient has AICD in place. Patient may need AURE to rule out endocarditis given multiple blood cultures growing MRSA in which case he may have to be transferred to a tertiary center. Consult infectious disease. CT thoracic and lumbar spine-no abscess. CT thoracic spine also demonstrate rounded opacity in the right upper load. Round pneumonia not excluded. Elevated troponin likely secondary to sepsis in the contest of CHF. Elevated liver enzymes likely secondary to sepsis. PT evaluation. Physician Review Additional Text: Physical Exam General: Alert, AAOx3 HEENT: normal conjunctiva, sclera anicteric Respiratory: mild wheeze on exam, on 2L NC, nonlabored CV: 1+ b/l edema, irregularly irregular rhythm, Normal S1 S2 Abd: soft, distended, nontender, no rebound Ext: 4/5 weakness at R hip flexion, 5/5 dorsal/plantar flexion. 4+/5 LLE, 5/5 b/l upper extremities L great toe (medial aspect) - superficial healed ulcer, dressing applied R 2nd toe - dark / reddish-black discoloration under nail, thick callus on tip of toe - patient without sensation of b/l feet Problem List Sepsis secondary to MRSA bacteremia, unknown primary source Osteomyelitis of toe Acute renal failure Lower back pain, LLE weakness due to Advanced lumbar degenerative changes with prominent foraminal stenosis on the right at L3-4 Delayed gastric emptying h/o Cardiomyopathy Elevated troponin Elevated liver enzymes Chronic Afib h/o lymphoma MRSA bacteremia of unknown source. Endocarditis not ruled out CT thoracic spine did not show any abscess. A rounded opacity in the right upper lung; CTA chest (01/31): b/l atelectasis, possible pneumonia Leukocytosis now improving slowly. Blood cultures remain positive for MRSA. This is concerning for endocarditis Most recent blood culture 02/06:MRSA. 02/10 is growing Gram positive cocci. Heme-Onc consulted given history lymphoma and persistent leukocytosis, reviewed labs and imaging, feels this is reactive to sepsis Echo obtained on 01/30 - no vegetation seen. Elevated troponin likely secondary to sepsis in the context of CHF. Elevated liver enzymes likely secondary to sepsis. started nystatin swish/swallow for erythematous / sore tongue on 01/31 Concern for osteomyelitis of the left 1st metatarsal head and proximal phalanx. Infectious disease is following. Remove PICC line. Insert peripheral line. Continue current antibiotics. Repeat blood cultures. back pain , left lower- extremity weakness-CT lumbar: Advanced lumbar degenerative changes with prominent foraminal stenosis on the right at L3-4 - consistent with exam findings -patient states back pain is better. -neurology consulted, recommended gabapentin for pain 300 b.i.d. and titrate as needed for pain control -eventually, once the infection cleared will need to follow up with neurosurgery Delayed gastric emptying -unclear the reason, seems to be improving slowly, on Reglan -Dr. Allen input appreciated. -no endoscopy at this time per Dr. Allen Dispo: Transferred to [facility] initiated. I called and spoke to patient's EP Dr. Hebert of [facility] about the need for transfer. No bed availability as of now per transfer center. Waiting for bed availability.
--- NOTE | 2021-02-11 11:56 | P.PN ---
Subjective Date of Service: 02/11/21 Chief Complaint: Fatigue, right shoulder pain Patient feels better, tolerating 3+ ensure cans per day, continues to have improved appetite, continues to have bowel function. no nausea, emesis. Physical Examination - Vital Signs Temperature: 96.4 F Blood Pressure: 102/55 Pulse: 103 Respirations: 22 Pulse Ox (%): 96 - Physical Exam General: Alert, In no apparent distress, Cooperative Gastrointestinal: Soft and benign, No tenderness, No masses, No rebound, No guarding Other Physical/Emotional Findings: General: Alert, In no apparent distress. HEENT: Atraumatic, Normocephalic, PERRLA. Neck: Supple, 2+ carotid pulse no bruit, JVD not distended. Respiratory: Expiratory wheezes, Rhonchi/gurgles (More prominent on the the left lower lobe), Other. Cardiovascular: No edema, Normal pulses, Regular rate/rhythm. Capillary refill: <2 Seconds. Gastrointestinal: Other (Dull to percussion), Distended. Musculoskeletal: No clubbing, No swelling, No contractures. Integumentary: Wound to the lateral plantar aspect of the right great toe. Wound has no active drainage or bleeding. Purulent tissue is clean and dry. Urinary: Other (No Huffman). External genitalia: Deferred Assessment And Plan - Current Problems (Diagnosis) (1) MRSA bacteremia Current Visit: Yes Status: Acute Plan: \ - continue medical plan - serial abdominal exams - ensure per dietary recommendations, - antibiotics, leukocytosis improving - gastric emptying study shows gastroparesis, continue reglan - Will perform EGD as outpatient unless intolerance occurs Physician Review Additional Text: Physical Exam General: Alert, AAOx3 HEENT: normal conjunctiva, sclera anicteric Respiratory: mild wheeze on exam, on 2L NC, nonlabored CV: 1+ b/l edema, irregularly irregular rhythm, Normal S1 S2 Abd: soft, distended, nontender, no rebound Ext: 4/5 weakness at R hip flexion, 5/5 dorsal/plantar flexion. 4+/5 LLE, 5/5 b/l upper extremities L great toe (medial aspect) - superficial healed ulcer, dressing applied R 2nd toe - dark / reddish-black discoloration under nail, thick callus on tip of toe - patient without sensation of b/l feet Problem List Sepsis secondary to MRSA bacteremia, unknown primary source Osteomyelitis of toe Acute renal failure Lower back pain, LLE weakness due to Advanced lumbar degenerative changes with prominent foraminal stenosis on the right at L3-4 Delayed gastric emptying h/o Cardiomyopathy Elevated troponin Elevated liver enzymes Chronic Afib h/o lymphoma MRSA bacteremia of unknown source. suspect from recent L great toe infection. Endocarditis not ruled out CT thoracic spine did not show any abscess. A rounded opacity in the right upper lung; CTA chest (01/31): b/l atelectasis, possible pneumonia Leukocytosis now improving slowly. Blood cultures remain positive for MRSA. This is concerning for endocarditis Most recent blood culture 02/06:MRSA. Heme-Onc consulted given history lymphoma and persistent leukocytosis, reviewed labs and imaging, feels this is reactive to sepsis Echo obtained on 01/30 - no vegetation seen. Elevated troponin likely secondary to sepsis in the context of CHF. Elevated liver enzymes likely secondary to sepsis. started nystatin swish/swallow for erythematous / sore tongue on 01/31 Cardio consulted for eval of defibrillator / input on echo if appears infected Concern for osteomyelitis of the left 1st metatarsal head and proximal phalanx. Infectious disease is following. Remove PICC line. Insert peripheral line. Continue current antibiotics. back pain , left lower- extremity weakness-CT lumbar: Advanced lumbar degenerative changes with prominent foraminal stenosis on the right at L3-4 - consistent with exam findings -neurology consulted, recommended gabapentin for pain 300 b.i.d. and titrate as needed for pain control -eventually, once the infection cleared will need to follow up with neurosurgery Delayed gastric emptying -unclear the reason, seems to be improving slowly, on Reglan -Dr. Allen input appreciated. -no endoscopy at this time per Dr. Allen Dispo: Transferred to [facility] initiated. I called and spoke to EP Dr. Hebert of [facility] about the need for transfer. No bed availability as of now per transfer center. Waiting for bed availability.
[2021-02-11] MEDS: DAPTOmycin 600 MG in NA CHLORIDE 0.9% 100 ML IVPB SCH (16:34)
--- NOTE | 2021-02-11 16:37 | P.DS ---
Admission Date: 01/27/21 Discharge Date: 02/11/21 Disposition: TRANSFER TO [facility] Discharge Condition: FAIR Reason for Admission: Fatigue, right shoulder pain - Problems (1) Sepsis Status: Acute (2) Acute renal failure Status: Acute (3) Cardiomyopathy Status: Chronic (4) Elevated troponin Status: Acute (5) Elevated liver enzymes Status: Acute (6) MRSA bacteremia Status: Acute Brief History of Present Illness: 80-year-old gentleman with a history of heart failure, status post AICD, history of atrial fibrillation presented emergency department with a complaint of generalized weakness, fatigue, and right shoulder pain of 2 days duration. Patient report his shoulder pain or head after he used a sledgehammer a couple of days ago. Patient reports intermittent fever. He denied shortness of breath or cough. He denied any upper respiratory symptoms. He denies any dysuria or urinary frequency or diarrhea. Workup in the emergency department revealed severe leukocytosis, elevated lactic acid, and elevated creatinine and indicating acute renal failure. Chest x-ray shows no acute infiltrate. CT abdomen and pelvis unremarkable except abdominal aortic aneurysm. UA shows no UT Patient diagnosed with severe sepsis. Source of sepsis unknown. Sepsis protocol initiated in the ED and patient given IV fluid, IV vancomycin and cefepime. Patient is hospitalized for further management. Hospital Course: Patient admitted to the medical floor and treated aggressively with IV antibiotics including cefepime and vancomycin. MRSA bacteremia of unknown source. Endocarditis not ruled out CT thoracic spine done to evaluate back pain did not show any abscess. A rounded opacity was noted in the right upper lung; CTA chest (01/31): b/l atelectasis, possible pneumonia Leukocytosis now improving slowly. Blood cultures remain positive for MRSA. Concerning for endocarditis Most recent blood culture 02/06:MRSA. 02/10 is growing Gram positive cocci. Heme-Onc consulted given history lymphoma and persistent leukocytosis, she reviewed labs and imaging, felt this is reactive to sepsis Echo obtained on 01/30 - no vegetation seen. Elevated troponin likely secondary to sepsis in the context of CHF. Elevated liver enzymes likely secondary to sepsis. Started nystatin swish/swallow for erythematous / sore tongue on 01/31 Concern for osteomyelitis of the left 1st metatarsal head and proximal phalanx. Infectious disease evaluated patient and assisted with management He had a PICC line which was removed due to persistent bacteremia and peripheral line inserted. Current antibiotics include daptomycin and cefepime. back pain , left lower- extremity weakness-CT lumbar: Advanced lumbar degenerative changes with prominent foraminal stenosis on the right at L3-4 - ---patient states back pain is better. -neurology consulted, recommended gabapentin for pain 300 b.i.d. and titrate as needed for pain control -eventually, once the infection cleared will need to follow up with neurosurgery Delayed gastric emptying -unclear the reason, seems to be improving slowly, on Reglan -seen by general surgery Dr. Allen. -no endoscopy at this time per Dr. Allen. Initiated transfer to [facility] in order to have AURE done to rule out endocarditis. Patient accepted for transfer today. I called and spoke to Dr. Jenkins who accepted the patient for transfer. Vital Signs/Physical Exam: Temp Pulse Resp BP Pulse Ox 96.7 F L 101 H 22 H 128/63 94 02/11/21 12:00 02/11/21 12:00 02/11/21 12:00 02/11/21 12:00 02/11/21 12:00 General: Alert, In no apparent distress, Oriented x3 HEENT: Mucous membr. moist/pink Neck: Supple, JVD not distended Respiratory: Clear to auscultation bilaterally, Normal air movement Cardiovascular: Normal S1 S2, Other (Tachycardia), Edema (Trace edema bilateral lower extremities.) Gastrointestinal: Normal bowel sounds, Soft and benign, Non-distended, No tenderness Musculoskeletal: No swelling, No tenderness Integumentary: No rashes Neurological: Other (Globally weak. He moves all extremities.) Other Physical/Emotional Findings: General: Alert, In no apparent distress. HEENT: Atraumatic, Normocephalic, PERRLA. Neck: Supple, 2+ carotid pulse no bruit, JVD not distended. Respiratory: Expiratory wheezes, Rhonchi/gurgles (More prominent on the the left lower lobe), Other. Cardiovascular: No edema, Normal pulses, Regular rate/rhythm. Capillary refill: <2 Seconds. Gastrointestinal: Other (Dull to percussion), Distended. Musculoskeletal: No clubbing, No swelling, No contractures. Integumentary: Wound to the lateral plantar aspect of the right great toe. Wound has no active drainage or bleedin g. Purulent tissue is clean and dry. Urinary: Other (No Huffman). External genitalia: Deferred Laboratory Data at Discharge: WBC 14.80 K/uL (4.3-10.9) H 02/11/21 09:46 Hgb 8.9 g/dL (13.6-17.9) L 02/11/21 09:46 Hct 29.0 % (39.6-49.0) L 02/11/21 09:46 Plt Count 488 K/uL (152-406) H 02/11/21 09:46 PT 19.0 SECONDS (9.5-12.5) H 01/27/21 12:44 INR 1.64 01/27/21 12:44 Sodium 139 mmol/L (136-145) 02/10/21 05:35 Potassium 3.9 mmol/L (3.5-5.1) 02/10/21 05:35 BUN 14 mg/dL (7-18) 02/10/21 05:35 Creatinine 0.35 mg/dL (0.55-1.3) L 02/10/21 05:35 Glucose 108 mg/dL (74-106) H 02/10/21 05:35 Phosphorus 2.9 mg/dL (2.5-4.9) 02/04/21 05:35 Magnesium 2.3 mg/dL (1.8-2.4) 02/06/21 04:14 Total Bilirubin 0.9 mg/dL (0.2-1.0) 02/06/21 04:14 AST 74 U/L (15-37) H 02/06/21 04:14 ALT 46 U/L (12-78) 02/06/21 04:14 Alkaline Phosphatase 93 U/L (45-117) 02/06/21 04:14 Troponin I 0.03 ng/mL (0.0-0.045) 01/28/21 16:50 Home Medications: Amiodarone HCl [Pacerone] 200 mg PO DAILY 01/28/21 Atorvastatin Calcium 50 mg PO DAILY 01/28/21 Dabigatran Etexilate Mesylate [Pradaxa] 1 cap PO BID 01/28/21 Levothyroxine Sodium [Levothyroxine] 50 mcg PO DAILY 01/28/21 Montelukast Sodium 1 tab PO DAILY 01/28/21 Ensure High Protein 237 ml PO BID can 02/11/21 Famotidine [Pepcid*] 20 mg IV DAILY vial 02/11/21 Metoclopramide [Reglan*] 10 mg PO Q6HR tab 02/11/21 Followup: NONE,NONE [Primary Care Provider] - Time spent managing pt's care (in minutes): 45
[2021-02-11 16:38] VITALS: BP 110/58; TEMP 96.8
== END 2021-02-11 17:38 | disposition short-term general hospital (02) | DRG 871 ==
LOC: ER 10:49 → ERHOLD 18:36 → 2ND 19:40
PROVIDERS: ADMIT Internal Medicine; ATTEND Internal Medicine
PROC: 30233N1 Transfusion of Nonautologous Red Blood Cells into Peripheral Vein, Percutaneous Approach (ICD-10-PCS; 2021-01-27)
PROC: 02HV33Z Insertion of Infusion Device into Superior Vena Cava, Percutaneous Approach (ICD-10-PCS; principal; 2021-02-02)
DX: A41.02 Sepsis due to Methicillin resistant Staphylococcus aureus (principal); R65.21 Severe sepsis with septic shock; J18.9 Pneumonia, unspecified organism; I50.23 Acute on chronic systolic (congestive) heart failure; N17.9 Acute kidney failure, unspecified; I42.9 Cardiomyopathy, unspecified; I48.20 Chronic atrial fibrillation, unspecified; I38 Endocarditis, valve unspecified; M86.8X7 Other osteomyelitis, ankle and foot; I11.0 Hypertensive heart disease with heart failure; I71.4 Abdominal aortic aneurysm, without rupture; E03.9 Hypothyroidism, unspecified; D64.9 Anemia, unspecified; K31.89 Other diseases of stomach and duodenum; L97.529 Non-pressure chronic ulcer of other part of left foot with unspecified severity; K59.00 Constipation, unspecified; E78.5 Hyperlipidemia, unspecified; M48.061 Spinal stenosis, lumbar region without neurogenic claudication; K31.84 Gastroparesis; B96.4 Proteus (mirabilis) (morganii) as the cause of diseases classified elsewhere; B96.89 Other specified bacterial agents as the cause of diseases classified elsewhere; R94.5 Abnormal results of liver function studies; R77.8 Other specified abnormalities of plasma proteins; Z79.890 Hormone replacement therapy; Z95.810 Presence of automatic (implantable) cardiac defibrillator; Z79.899 Other long term (current) drug therapy; Z20.822 Contact with and (suspected) exposure to COVID-19
CPT/HCPCS: 0240U; 36415; 36569; 51702; 70450; 71045; 71260; 71275; 72129; 72132; 73700; 74018; 74177; 76705; 78264; 80048; 80053; 80076; 80202; 81003; 81015; 82553; 82607; 82728; 82746; 82947; 83540; 83605; 83735; 83880; 84100; 84132; 84145; 84466; 84484; 85025; 85044; 85379; 85610; 85652; 86140; 87040; 87070; 87077; 87086; 87088; 87186; 87205; 93005; 93306; 94760; 96361; 96365; 96367; 96375; 97110; 97112; 97161; 97530; 99285; A9541; J0692; J0696; J0878; J1644; J2270; J2405; J2997; J3370; J7030; J7040; Q9967; U0003

== ENCOUNTER 2021-08-25 10:44 | Emergency (ER) | payer OTHER ==
[2021-08-25 11:45] LABS: Absolute Lymphocytes (CBC) 1.6 K/uL (0.7-4.9); Basophils % 0.7 % (0-1.3); Hematocrit 31.7 % (39.6-49.0); Lymphocytes % 20.1 % (15.3-44.8); MPV 6.8 fL (7.6-11.3); RBC Red Blood Cell Count 4.15 M/uL (4.33-5.43)
[2021-08-25 12:01] LABS: Albumin 2.9 g/dL (3.4-5.0); Bilirubin Total 0.3 mg/dL (0.2-1.0); Protein, Total 8.3 g/dL (6.4-8.2)
--- NOTE | 2021-08-25 12:09 | RAD REPORT ---
EXAM DESCRIPTION: RAD - Foot Left 3 View - 08/25/2021 11:48 am CLINICAL HISTORY: PAIN COMPARISON: Foot Left 3 View dated 01/31/2021 FINDINGS: Mild hallux valgus is seen. No fracture is seen. Small plantar calcaneal spur is present. Mild atherosclerosis. Assessment of the toes is somewhat limited due to positioning. Small erosions m ay be present involving the proximal phalanges of the second and third toes at the level of the PIP j vianey.
--- NOTE | 2021-08-25 12:35 | RAD REPORT ---
EXAM DESCRIPTION: US - Extrem Venous W Compress Logan - 08/25/2021 12:27 pm CLINICAL HISTORY: Pain;Swelling Bilateral leg edema and swelling. COMPARISON: No comparisons TECHNIQUE: Real-time sonographic interrogation of the left and right lower extremity deep venous sys tems was performed. FINDINGS: Normal compressibility, flow augmentation, phasic flow and spontaneous flow is identified in both the left and right lower extremity deep venous systems. IMPRESSION: No sonographic evidence of left or right lower extremity deep venous thrombosis.
--- NOTE | 2021-08-25 15:19 | ER ---
Nurse's Notes [facility] Name: Danny Rouse Age: 80 yrs Sex: Male : 1940 Arrival Date: 08/25/2021 Time: 10:46 Bed 18 Private MD: Diagnosis: Corns and callosities-Left great toe;Dependent edema Presentation: 08/25 11:00 Chief complaint: Patient states: RLE pain for at least a month. Sent by PCP for eval. ll1 No fever. Noticed spot on L great toe has a scab on it, history of MRSA. WBC 15, ultrasound negative with PCP. Coronavirus screen: Vaccine status: Patient reports receiving the 2nd dose of the covid vaccine. Client denies travel out of the [place] in the last 14 days. At this time, the client does not indicate any symptoms associated with coronavirus-19. Ebola Screen: Patient denies travel to an Ebola-affected area in the 21 days before illness onset. Initial Sepsis Screen: Does the patient meet any 2 criteria? No. Patient's initial sepsis screen is negative. Does the patient have a suspected source of infection? Yes: Bone or joint infection. Risk Assessment: Do you want to hurt yourself or someone else? Patient reports no desire to harm self or others. Onset of symptoms was July 26, 2021. 11:00 Method Of Arrival: Wheelchair ll1 11:00 Acuity: UABREY 3 ll1 Triage Assessment: 11:00 General: Appears in no apparent distress. comfortable, Behavior is cooperative, bp appropriate for age, anxious. Pain: Complains of pain in left first toe. EENT: No deficits noted. Neuro: No deficits noted. Cardiovascular: No deficits noted. Respiratory: No deficits noted. GI: No signs and/or symptoms were reported involving the gastrointestinal system. : No signs and/or symptoms were reported regarding the genitourinary system. Derm: Wound noted left first toe. Musculoskeletal: No deficits noted. Historical: - Allergies: 10:59 No Known Allergies; ll1 - PMHx: 10:59 cardiomyopathy; Hypertension; Thyroid problem; ll1 - PSHx: 10:59 back SX; ll1 - Immunization history:: Client reports receiving the 2nd dose of the Covid vaccine. - Social history:: Smoking status: Patient denies any tobacco usage or history of. Screenin:00 Abuse screen: Denies threats or abuse. Denies injuries from another. Nutritional bp screening: No deficits noted. Tuberculosis screening: No symptoms or risk factors identified. Fall Risk None identified. Assessment: 11:00 General: SEE TRIAGE NOTE. bp 13:00 Reassessment: No changes from previously documented assessment. Patient and/or family bp updated on plan of care and expected duration. Pain level reassessed. 15:57 Reassessment: PT D/C HOME VIA W/C WITH FAMILY, DX WITH CORN OR CALLUS. bp Vital Signs: 11:00 BP 112 / 59; Pulse 81; Resp 17; Temp 97.6; Pulse Ox 98% ; Weight 81.65 kg; Height 6 ft. ll1 1 in. (185.42 cm); Pain 9/10; 12:00 BP 126 / 60; Pulse 59; Resp 17; Pulse Ox 100% ; bp 13:00 BP 128 / 58; Pulse 58; Resp 16; Pulse Ox 100% ; bp 14:00 BP 130 / 59; Pulse 59; Resp 16; Pulse Ox 98% ; bp 15:00 BP 128 / 59; Pulse 57; Resp 16; Pulse Ox 99% ; bp 15:59 BP 133 / 60; Pulse 57; Resp 19; Temp 97.9; Pulse Ox 100% ; bp 11:00 Body Mass Index 23.75 (81.65 kg, 185.42 cm) ll1 ED Course: 10:46 Patient arrived in ED. rg4 10:59 Arm band placed on Patient placed in an exam room, on a stretcher. ll1 11:00 Patient has correct armband on for positive identification. bp 11:03 Triage completed. ll1 11:03 Corey Núñez NP is PHCP. pm1 11:03 Castro Son MD is Attending Physician. pm1 11:11 Bradley Kohli, DONNIE is Primary Nurse. bp 11:30 Inserted saline lock: 20 gauge in right forearm, using aseptic technique. Blood bp collected. 11:33 XRAY Foot LEFT 3 View Sent. bp 11:48 XRAY Foot LEFT 3 View In Process Unspecified. EDMS 12:27 Extrem Venous W Compression Logan US In Process Unspecified. EDMS 15:59 No provider procedures requiring assistance completed. IV discontinued, intact, bp bleeding controlled, No redness/swelling at site. Pressure dressing applied. Administered Medications: No medications were administered Outcome: 15:19 Discharge ordered by MD. pm1 15:59 Discharged to home via wheelchair, with family. bp 15:59 Condition: stable 15:59 Discharge instructions given to patient, family, Instructed on discharge instructions, follow up and referral plans. Demonstrated understanding of instructions, follow-up care. 16:01 Patient left the ED. bp Signatures: Dispatcher [employer] EDMS Corey Núñez NP CLINICAL REVIEW NURSE pm1 Nava Hobbs rg4 Bradley Kohli RN RN bp Sully Bishop RN RN ll1 Corrections: (The following items were deleted from the chart) 11:06 11:00 Chief complaint: Patient states: RLE pain for at least a month. Sent by PCP for ll1 eval. No fever. Noticed spot on L great toe has a scab on it, history of MRSA. ll1 16:00 15:59 Discharge instructions given to patient, family, Instructed on discharge bp instructions, follow up and referral plans. Demonstrated understanding of instructions, follow-up care, medications, crutch walking, splint care, Following a medical screening exam, the patient was provided information regarding alternative care sites and resources available per registration personnel. bp
--- NOTE | 2021-08-25 15:19 | EDPHYS ---
Physician Documentation [facility] Name: Danny Rouse Age: 80 yrs Sex: Male : 1940 Arrival Date: 08/25/2021 Time: 10:46 Bed 18 Private MD: ED Physician Castro Son HPI: 08/25 11:29 This 80 yrs old Male presents to ER via Wheelchair with complaints of pm1 Abnormal Lab Results, Leg Pain, Foot Pain. 11:29 Associated signs and symptoms: Pertinent negatives: fever, Calf pain, shortness of pm1 breath, chest pain. The patient has been recently seen by a physician: 1 week(s) ago, with similar presenting complaints, lab tests were done, an ultrasound was done. Patient presents to the ER with complaints of elevated wbc of 15 from lab works drawn 1 week ago. Patient also with swelling to right foot for the past 3 weeks and is worse with dependent extremities and improved with elevation of feet. Patient also reports scab and hardened skin present on medial aspect of left great toe. Patient was instructed to report to ER for evaluation by PCP based on elevated WBC. Historical: - Allergies: 10:59 No Known Allergies; ll1 - PMHx: 10:59 cardiomyopathy; Hypertension; Thyroid problem; ll1 - PSHx: 10:59 back SX; ll1 - Immunization history:: Client reports receiving the 2nd dose of the Covid vaccine. - Social history:: Smoking status: Patient denies any tobacco usage or history of. ROS: 11:29 Constitutional: Negative for fever, chills, and weight loss, Cardiovascular: Negative pm1 for chest pain, palpitations, and edema, Respiratory: Negative for shortness of breath, cough, wheezing, and pleuritic chest pain, Abdomen/GI: Negative for abdominal pain, nausea, vomiting, diarrhea, and constipation. 11:29 Neuro: Negative for headache, weakness, numbness, tingling, and seizure. 11:29 MS/extremity: Positive for pain, swelling, of the right leg. 11:29 Skin: Positive for Scab and hardened skin present to medial aspect of right great toe, Negative for abscesses, cellulitis. 11:29 All other systems are negative. Exam: 11:29 Constitutional: This is a well developed, well nourished patient who is awake, alert, pm1 and in no acute distress. Head/Face: Normocephalic, atraumatic. 11:29 Eyes: Exam is negative for acute changes, Extraocular movements: intact throughout, Conjunctiva: normal, no acute changes. 11:29 ENT: Mouth: no acute changes, Lips: normal, moist, Oral mucosa: normal, pink and intact, moist. 11:29 Cardiovascular: Exam negative for acute changes, Rate: normal, Rhythm: regular, Pulses: no pulse deficits are appreciated, Edema: is not appreciated. 11:29 Respiratory: Exam negative for acute changes, respiratory distress, shortness of breath. 11:29 Abdomen/GI: Inspection: abdomen appears normal, Palpation: abdomen is soft and non-tender. 11:29 Skin: Appearance: normal except for affected area, Callosity present to medial aspect of left great, abscess, not appreciated, cellulitis, is not appreciated. 11:29 Neuro: Exam negative for acute changes, Orientation: is normal, Mentation: is normal, Motor: is normal, moves all fours. Vital Signs: 11:00 BP 112 / 59; Pulse 81; Resp 17; Temp 97.6; Pulse Ox 98% ; Weight 81.65 kg; Height 6 ft. ll1 1 in. (185.42 cm); Pain 9/10; 12:00 BP 126 / 60; Pulse 59; Resp 17; Pulse Ox 100% ; bp 13:00 BP 128 / 58; Pulse 58; Resp 16; Pulse Ox 100% ; bp 14:00 BP 130 / 59; Pulse 59; Resp 16; Pulse Ox 98% ; bp 15:00 BP 128 / 59; Pulse 57; Resp 16; Pulse Ox 99% ; bp 15:59 BP 133 / 60; Pulse 57; Resp 19; Temp 97.9; Pulse Ox 100% ; bp 11:00 Body Mass Index 23.75 (81.65 kg, 185.42 cm) ll1 MDM: 11:04 Patient medically screened. pm1 15:16 Data reviewed: vital signs. Data interpreted: Pulse oximetry: on room air is 100 %. pm1 Interpretation: normal. Counseling: I had a detailed discussion with the patient and/or guardian regarding: the historical points, exam findings, and any diagnostic results supporting the discharge/admit diagnosis, lab results, radiology results, the need for outpatient follow up, to return to the emergency department if symptoms worsen or persist or if there are any questions or concerns that arise at home. 08/25 11:14 Order name: CBC with Diff; Complete Time: 11:51 pm1 08/25 11:14 Order name: CMP; Complete Time: 12:08 pm1 08/25 11:14 Order name: XRAY Foot LEFT 3 View; Complete Time: 12:11 pm1 08/25 11:14 Order name: Extrem Venous W Compression Logan US; Complete Time: 12:38 pm1 08/25 13:53 Order name: Add On-Lab pm1 08/25 13:57 Order name: Uric Acid; Complete Time: 14:59 EDMS 08/25 11:14 Order name: IV Saline Lock; Complete Time: 11:32 pm1 Administered Medications: No medications were administered Disposition: 17:34 Co-signature as Attending Physician, Castro Son MD I agree with the assessment and rn plan of care. Attestation: The patient's history, exam findings, diagnostics, and a summary of any interventions or procedures was reviewed in detail with Corey Núñez NP. Disposition Summary: 08/25/21 15:19 Discharge Ordered Location: Home pm1 Problem: new pm1 Symptoms: have improved pm1 Condition: Stable pm1 Diagnosis - Corns and callosities - Left great toe pm1 - Dependent edema pm1 Followup: pm1 - With: Emergency Department - When: As needed - Reason: Worsening of condition Followup: pm1 - With: Private Physician - When: 2 - 3 days - Reason: Recheck today's complaints, Continuance of care, Re-evaluation by your physician Discharge Instructions: - Discharge Summary Sheet pm1 - Corns and Calluses pm1 - Edema, [id number] pm1 Forms: - Medication Reconciliation Form pm1 - Thank You Letter pm1 - Antibiotic Education pm1 - Prescription Opioid Use pm1 Signatures: Dispatcher [employer] EDMS Castro Son MD MD rn Marinas, Patrick, NP TECHNICAL PROGRAM MANAGER pm1 Sully Bishop RN RN ll1
[2021-08-25 16:14] VITALS: BP 133/60; TEMP 97.9; O2SAT 100
== END 2021-08-25 16:01 | disposition home or self-care (01) ==
LOC: ER 10:44
DX: R60.9 Edema, unspecified (principal); L84 Corns and callosities
CPT/HCPCS: 36415; 80053; 84550; 85025; 93970; 99284